=== PATIENT | male | born 1955 | race Caucasian/White ===

== ENCOUNTER 2023-05-12 11:45 | Inpatient (IN) | payer BC, SELFPAY ==
[2023-05-12] VITALS (7 sets, daily range): BP systolic 100–164; BP diastolic 64–83; PULSE 98–120; RESP 14–22; TEMP 36.1–37.1; O2SAT 93–95; BMI 33.9
--- NOTE | 2023-05-12 | ECG_ITS ---
Test Reason : baseline ekg Blood Pressure : / mmHG Vent. Rate : 110 BPM Atrial Rate : 000 BPM P-R Int : 000 ms QRS Dur : 100 ms QT Int : 374 ms P-R-T Axes : 000 041 079 degrees QTc Int : 506 ms Atrial fibrillation with rapid ventricular response Incomplete right bundle branch block Nonspecific ST abnormality Abnormal ECG When compared with ECG of 10-SEP-2016 23:18, Atrial fibrillation has replaced Sinus rhythm ST more depressed Anterolateral leads T wave amplitude has increased in Lateral leads Heart rate has increased Referred By: Yuly Hernandez Electronically Signed By:DELMER MITCHELL MD
--- NOTE | ~2023-05-12 | FL_ITS ---
EXAMINATION: XR FL WITH IMAGES CLINICAL INFORMATION: Left ankle ORIF. COMPARISON: Left ankle 05/11/2023 from [facility]. TECHNIQUE: Fluoroscopy Supervised By: Dr. Kyler Oliva. Fluoroscopy Time: 0.1 minute. Cumulative Dose: 0.785 mGy. DAP: 0.0136 mGym2. Images: 4. FINDINGS: Imaging shows ORIF with lateral plate and screw overlying a lateral fibula. FL/FL guidance in OR IMPRESSION: Fluoroscopy provided for ORIF left ankle fracture.
--- NOTE | ~2023-05-12 | XR_ITS ---
EXAMINATION: XR CHEST CLINICAL INFORMATION: VQ scan. Rule out pulmonary embolism. Ankle fracture. COMPARISON: 05/12/2023 x-ray chest. TECHNIQUE: Frontal view of the chest was obtained. FINDINGS: Lung volumes are low. There is no gross pneumothorax. Enlarged cardiac silhouette. Median sternotomy wires. Mild diffuse prominence of the vasculature suggestive of mild pulmonary edema. No gross pleural effusion. Mild bibasilar streaky opacities may represent atelectasis and/or pneumonia, left greater than right. XR/XR chest 1V IMPRESSION: Mild diffuse prominence of the vasculature suggestive of mild pulmonary edema. Mild bibasilar streaky opacities may represent atelectasis and/or pneumonia, left greater than right.
--- NOTE | ~2023-05-12 | XR_ITS ---
EXAMINATION: XR ANKLE, LEFT CLINICAL INFORMATION: Fall, fracture COMPARISON: None available. TECHNIQUE: AP, lateral, and mortise views of the left ankle. FINDINGS: Displaced oblique fracture of the distal fibula with medial clear space widening/mortise disruption. Associated soft tissue swelling. Vascular calcifications. XR/XR ankle LT min 3V IMPRESSION: Displaced distal fibular fracture with mortise disruption.
--- NOTE | ~2023-05-12 | XR_ITS ---
EXAMINATION: XR chest 1V CLINICAL INFORMATION: Hypoxia COMPARISON: 2017 TECHNIQUE: XR chest 1V Tubes and lines: Lungs and pleura: There is pulmonary vascular congestion, without scot failure. Left hemidiaphragm is partially obscured probably by underlying pleural effusion, infiltrate and/or atelectasis. Heart and mediastinum: Stable sternotomy wires. The mediastinum is within normal limits.. Bones/soft tissue: Skeletal structures included are normal for patient's age. XR/XR chest 1V IMPRESSION: * Pulmonary vascular congestion without scot failure. * Left hemidiaphragm is partially obscured probably by underlying pleural effusion, infiltrate and/or atelectasis.
--- NOTE | ~2023-05-12 | NM_ITS ---
EXAMINATION: NM LUNG IMAGE PERFUSION CLINICAL INFORMATION: Rule out PE. Ankle fracture. Rule out CHF and/or PD. COMPARISON: Chest x-ray 05/14/2023. TECHNIQUE: Following intravenous administration of 4 mCi of 90 9M technetium MAA, imaging of both lungs were obtained in multiple projections. Ventilation study was not performed. FINDINGS: There is normal perfusion seen to all segments of both lungs without segmental or subsegmental defect. Chest x-ray reveals cardiomegaly with mild CHF. NM/ME pul perfusion IMPRESSION: No evidence of perfusion defect to suspect any PE.
--- NOTE | ~2023-05-12 | CT_ITS ---
EXAMINATION: CT ABDOMEN AND PELVIS WITHOUT CONTRAST CLINICAL INFORMATION: Acute kidney insufficiency. Elevated liver function tests. COMPARISON: None available. TECHNIQUE: Multidetector volumetric imaging was performed from the superior aspect of the liver through the pubic symphysis. Sagittal and coronal reformatted images were obtained on the technologist's workstation. This CT examination was performed using dose optimization techniques as appropriate, variously including the following: *Automated exposure control *Adjustment of mA and/or kV according to patient size (this includes techniques or standardized protocols for targeted exams where dose is matched to indication/reason for exam; i.e. extremities or head) *Use of iterative reconstruction technique DLP: 826 mGy-cm FINDINGS: LUNG BASES: Subsegmental atelectasis at the lung bases. The heart is enlarged. LIVER, GALLBLADDER, AND BILIARY TREE: The liver is normal in size, shape. The liver is slightly low in attenuation suggestive of fatty infiltration.. No focal hepatic lesion or biliary ductal dilatation is present. Small gallstones. PANCREAS: Unremarkable. SPLEEN: Unremarkable. ADRENAL GLANDS: Unremarkable. KIDNEYS AND URETERS: The kidneys are normal in size, shape, and attenuation. No hydronephrosis, hydroureter, or calculi seen. I lateral perinephric stranding. BLADDER: Unremarkable. GASTROINTESTINAL TRACT: The small and large bowel are unremarkable. The appendix is unremarkable. ABDOMINAL WALL: Small left umbilical hernia containing fat. Postsurgical changes from umbilical hernia repair. LYMPH NODES: Normal. VASCULAR: Atherosclerotic disease. Lower abdominal aortic aneurysm just above the bifurcation measuring 3.2 cm. PELVIC VISCERA: Unremarkable. OSSEOUS STRUCTURES: Degenerative changes of the spine and hip joints. CT/CT abdomen pelvis wo IV con IMPRESSION: Multiple fatty infiltration of the liver. Small gallstone. Bilateral renal perinephric fat stranding. Small lower abdominal aortic aneurysm measuring 3.2 cm. Recommend AAA follow-up every 3 years. Reference: J Am Sultana Radiol 2013; 10 (10): 789-794. Fleischner guidelines were followed.
--- NOTE | ~2023-05-12 | US_ITS ---
EXAMINATION: US RETROPERITONEAL LIMITED (RENAL ONLY) CLINICAL INFORMATION: 8 TI. COMPARISON: None available. TECHNIQUE: Routine grayscale imaging of kidneys was performed. FINDINGS: RIGHT KIDNEY: 14.4 x 6.1 x 7.4 cm (SAG x AP x TRV). The kidney is normal in size, contour, and echogenicity. Renal cortical thickness is normal. No calculi or focal parenchymal lesions. No hydronephrosis. LEFT KIDNEY: 14.5 x 8.2 x 5.9 cm (SAG x AP x TRV). The kidney is normal in size, contour, and echogenicity. Renal cortical thickness is normal. No calculi or focal parenchymal lesions. No hydronephrosis. Incidental finding of a echogenic heterogeneous liver likely fatty infiltration consistent with history of elevated LFTs on recent CT abdomen pelvis 05/13/2023 US/US renal BI IMPRESSION: Unremarkable renal ultrasound.
--- NOTE | 2023-05-12 11:53 | ED_ITS ---
HPI - General Adult General Chief complaint: Extremity Injury, Lower Stated complaint: broken L ankle Time Seen by Provider: 05/12/23 11:53 Source: patient and family (patient's and son) Mode of arrival: wheelchair Limitations: no limitations History of Present Illness HPI narrative: Patient is a 68 year old assigned male at with a history of a valve replacement and atrial fibrillation requiring Xarelto presenting to the emergency department today with left ankle pain. Patient states that he fell off the top of his fridge, was seen at [facility] where they did imaging of his head, neck, and ankle. Patient states that he was discharged from that facility because he wanted to come here. Patient states that he did not sign out against medical advice. Patient denies any loss of consciousness, numbness, tingling, dizziness, lightheadedness, abdominal pain, nausea, vomiting, fever, chills, blurry vision, double vision, loss of vision, chest pain, difficulty breathing, shortness of breath, back pain, night sweats, pain with urination, increased urinary frequency, increased urinary urgency, blood in his urine or stool, syncope or a near syncopal episode, bowel incontinence, bladder incontinence, bowel retention, bladder retention, or any other complaints at this time. Onset (ago): hour(s) Location: left and lower extremity Severity: moderate Severity scale (1-10): 5 Quality: aching Pain Consistency: constant Relieving factors: immobilization Exacerbating factors: movement Associated symptoms: denies other symptoms Treatments prior to arrival: none Related Data Home Medications Medication Instructions Recorded Confirmed aspirin 81 mg tablet,delayed 81 mg PO DAILY 05/12/23 05/12/23 release citalopram 20 mg tablet 20 mg PO DAILY 05/12/23 05/12/23 fenofibrate 54 mg tablet 54 mg PO DAILY 05/12/23 05/12/23 fluticasone furoate 100 1 inh inhalation DAILY 05/12/23 05/12/23 mcg-vilanterol 25 mcg/dose inhalation powder (Breo Ellipta) magnesium glycinate 100 mg tablet 500 mg PO DAILY 05/12/23 05/12/23 magnesium oxide 400 mg PO BID 05/12/23 05/12/23 metoprolol succinate 100 mg 100 mg PO BID 05/12/23 05/12/23 tablet,extended release 24 hr omega 4-xws-rqd-fish oil 1,000 mg 2 cap PO DAILY 05/12/23 05/12/23 (120 mg-180 mg) capsule (Fish Oil) omeprazole 20 mg capsule,delayed 20 mg PO Q2D@0630 05/12/23 05/12/23 release rivaroxaban 20 mg tablet (Xarelto) 20 mg PO DAILY@1700 05/12/23 05/12/23 rosuvastatin 20 mg tablet 20 mg PO DAILY 05/12/23 05/12/23 Allergies Allergy/AdvReac Type Severity Reaction Status Date / Time No Known Allergies Allergy Unverified 04/16/20 19:13 [No Known Allergies*] Review of Systems 2 Constitutional: Constitutional: Reports no additional constitutional complaints, Denies chills, Denies fever(s) and Denies night sweats Eyes: Eyes: Reports no additional eye complaints, Denies blurry vision, Denies change in vision, Denies diplopia, Denies eye discharge, Denies loss of vision and Denies eye pain ENT: Denies dizziness Cardiovascular: Cardiovascular: Reports no additional cardiovascular complaints, Denies chest pain, Denies lightheadedness, Denies Loss of Consciousness and Denies dyspnea Respiratory: Respiratory: Reports no additional respiratory complaints and Denies dyspnea Gastrointestinal: Gastrointestinal: Reports no additional gastrointestinal complaints, Denies abdominal pain, Denies melena, Denies hematochezia, Denies change in bowel habits and Denies change in stool character Genitourinary: Genitourinary: Reports no additional male genitourinary complaints, Denies hematuria, Denies oliguria, Denies difficulty urinating, Denies dysuria, Denies urinary frequency, Denies urinary hesitancy, Denies urinary incontinence and Denies urinary urgency Musculoskeletal: Musculoskeletal: Reports no additional musculoskeletal complaints, Denies numbness and Denies tingling Comments: left ankle pain Neurologic: Denies dizziness, Denies loss of vision, Denies numbness and Denies tingling Psychiatric: Psychiatric: Reports no additional psychiatric complaints Endocrine: Endocrine: Reports no additional endocrine complaints Hematologic/Lymphatic: Hematologic/Lymphatic: Reports no additional hematologic/lymphatic complaints Allergic/Immunologic: Allergic/Immunologic: Reports no additional allergic/immunologic complaints PMFSH Past Medical History Attestation statement: The following information was validated with the patient. (all information validated with the patient's and son) Source: old records reviewed, obtained from family (patient's and son provided additional history and confirmed the history provided by the patient.) and nursing notes reviewed Social History Social History Advance Directives: Yes Advance Directives Information Provided: Yes Advance Directives on File: No Physical Exam ED Vital Signs: Vital Signs - 24 hr 05/12/23 12:01 05/12/23 13:12 05/12/23 14:34 Temperature 97.6 F Pulse Rate 98 Respiratory Rate 16 16 14 Blood Pressure 164/76 H Pulse Oximetry 95 Oxygen Delivery Method Room Air BMI result Body Mass Index 33.9 Const General: cooperative, no acute distress, alert and awake Nutritional Appearance: well nourished Orientation/consciousness: patient oriented x3 Limitations: no limitations HENMT Head: Yes normal to inspection and Yes atraumatic Ears: hearing grossly normal bilaterally and external ears normal General nose exam: Normal external nose present, no nasal discharge noted and no epistaxis Face and sinus: Yes normal facial exam, No abrasion and No laceration Mouth: Normal oral and palatal mucosa present, no drooling and no muffled voice Eyes General: appearance normal, both eyes and all related structures Periorbital: periorbital findings normal Eyelids: Yes eyelids normal Conjunctivae: conjunctivae normal Pupils: Equal, round and reactive pupils present EOM: EOMs intact bilaterally Neck Neck: Yes normal visual inspection, Yes full ROM and Yes no lymphadenopathy Chest Chest palpation & inspection: normal inspection of the chest Resp Effort & Inspection: normal respiratory effort and able to speak in complete sentences GI Inspection: Yes normal to inspection Neuro General: patient oriented x3 and moves all extremities Cranial nerves: Yes Equal, round and reactive pupils present Cognition (Neuro): normal cognition Motor exam (neuro): 5/5 motor strength present throughout Sensory Exam: Normal double simultaneous stimulation for sensation Coordination: [id number] test normal Extrem Other: small opening of the skin present to the medial aspect of the left ankle with diffuse swelling and bruising General: Yes capillary refill normal Psych Appearance: grossly normal Mental Status: mental status grossly normal Affect: normal affect Attitude: cooperative Thought process: Normal thought process present Thought content: Normal thought content present Insight: Good insight present (Psych) Medications Administered Discontinued Medications Generic Name Dose Route Start Last Admin Trade Name Freq PRN Reason Stop Dose Admin Hydromorphone HCl 2 mg 05/12/23 14:25 05/12/23 14:34 Hydromorphone Hcl 2 Mg/Ml Vial IVPUSH 05/12/23 14:26 2 mg ONCE ONE Administration Protocol Piperacillin Sod/Tazobactam 50 mls @ 100 mls/hr 05/12/23 12:15 05/12/23 13:57 Sod 3.375 gm/ Sodium Chloride IV 05/12/23 12:44 Infused ONCE ONE Infusion Morphine Sulfate 4 mg 05/12/23 13:02 05/12/23 13:12 Morphine Sulfate 4 Mg/Ml Cartridge IVPUSH 05/12/23 13:03 4 mg ONCE ONE Administration Protocol Ondansetron HCl 4 mg 05/12/23 13:02 05/12/23 13:10 Ondansetron Hcl 4 Mg/2 Ml Vial IVPUSH 05/12/23 13:03 4 mg ONCE ONE Administration Procedures Orthopedic Splinting/Casting Injury #1: Side: left Lower Extremity Injury Location: ankle Lower Extremity Immobilizer: posterior splint and stirrup splint Medical Decision Making Medical Decision Making MDM Narrative: Patient is a 68 year old assigned male at with a history of atrial fib and valve replacement presenting to the emergency department today with left ankle pain. Patient's physical exam was as noted in the physical exam portion of this note. Patient's blood work was unremarkable. Patient's left ankle x-ray showed an acute fracture. Patient's head and c-spine CTs from [facility] were unremarkable. I spoke with the orthopedist who recommended the patient be admitted medically. Patient was given IV Zosyn and I splinted his left ankle with a posterior short leg and stirrup splint. Patient's PMS was intact prior to and after splint placement. I spoke with the hospitalist team who agreed to admission. I explained my physical exam findings as well as all test results to the patient and the patient's . I answered all questions asked by the patient and the patient's . Patient and the patient's verbalized agreement and understanding with this treatment plan and admission. Differential Diagnosis Differential Diagnoses: The differential diagnosis associated with the presentation includes Open left ankle fracture Admission/Observation Consideration of admission/observation: Escalation of care including admission/observation considered Patient admitted. Consult Healthcare Provider Management of the patient was discussed with: Hospitalist (agreed to admission) and Tobacco Sprayer (recommended medical admission) Lab Data MDM Lab Attestation statement: I reviewed the patient's lab results. My interpretation of these studies and their corresponding values is that they are grossly normal. 05/12/23 12:49 05/12/23 12:49 Labs: Lab Results 05/12/23 Range/Units 12:49 WBC 7.0 (4.8-10.8) X10*3/uL RBC 4.17 L (4.60-5.80) X10*6/uL Hgb 15.1 (14.0-18.0) g/dl Hct 44.4 (42.0-52.0) % MCV 106.5 H (80.0-98.0) fL MCH 36.2 H (27.0-33.0) pg MCHC 34.0 (31.0-36.0) g/dl RDW 13.5 (11.0-16.0) % Plt Count 117 L (160-400) X10*3/uL MPV 10.6 (9.4-12.4) fL Immature Gran % (Auto) 0.4 (0.0-0.4) % Neut % (Auto) 65.1 (45-73) % Lymph % (Auto) 17.5 L (20-40) % [place] % (Auto) 13.0 H (2-11) % Eos % (Auto) 3.4 (0-4) % Baso % (Auto) 0.6 (0-2) % Lymph # (Auto) 1.2 (1.2-4.9) X10*3/uL [place] # (Auto) 0.9 (0.1-1.2) X10*3/uL Eos # (Auto) 0.2 (0.0-0.4) X10*3/uL Baso # (Auto) 0.0 (0.0-0.2) X10*3/uL Abs Immat Gran (auto) 0.03 (0.00-0.03) X10*3/uL Absolute Neuts (auto) 4.6 (2.0-8.3) x10*3/uL Absolute Nucleated RBC 0.000 (0.0-0.012) X10*3/uL Nucleated RBC % (auto) 0.0 (0.0-0.2) /100WBC PT 18.7 H (11.1-13.3) SEC INR 1.5 H (0.9-1.1) APTT 41.4 H (26.0-36.4) SEC Sodium 142 (135-145) mmol/L Potassium 4.2 (3.3-5.1) mmol/L Chloride 103 (96-108) mmol/L Carbon Dioxide 26 (22-29) mmol/L Anion Gap 17 (12-20) BUN 20 H (9-16) mg/dL Creatinine 0.99 (0.5-1.4) mg/dL Estim Creat Clear Calc 91.5 Estimated GFR > 60 Random Glucose 151 H (60-115) mg/dL Calcium 9.2 (8.4-10.2) mg/dL Magnesium 1.7 (1.6-2.6) mg/dL Total Bilirubin 1.4 H (0.0-1.0) mg/dL AST 42 H (5-37) U/L ALT 27 (0-40) U/L Alkaline Phosphatase 111 (39-117) U/L Total Protein 7.3 (6.5-8.0) g/dL Albumin 3.7 (3.5-5.0) g/dL Independent Interpretation I performed an independent interpretation of an: Plain X-Ray Interpretation: My interpretation is in agreement with the radiologist's impression of this imaging study. - EXAMINATION: XR ANKLE, LEFT CLINICAL INFORMATION: Fall, fracture COMPARISON: None available. TECHNIQUE: AP, lateral, and mortise views of the left ankle. FINDINGS: Displaced oblique fracture of the distal fibula with medial clear space widening/mortise disruption. Associated soft tissue swelling. Vascular calcifications. XR/XR ankle LT min 3V IMPRESSION: Displaced distal fibular fracture with mortise disruption. Dictated By: Roxana Rachel MD Signed By: Electronically signed by Roxana Rachel MD 05/12/23 1223 Radiology Impression Discussion of test interpretation with radiology: I have reviewed the radiologist's reading. Independent Historian Clinical information obtained from an independent historian. History obtained from or confirmed by: Spouse (patient's provided additional history and confirmed the history provided by the patient.) External Record Review External record reviewed: Outside ED record (Reviewed [facility] cyr notes and imaging.) Critical Care Time Critical Care Time Critical Care Time: Yes Total Critical Care Time: 60 Attestation: I spent 60 minutes of Critical Care Time with this patient. This does not include time spent on separately reported billable procedures. Discharge Plan Discharge Clinical Impression: Open ankle fracture Patient Disposition: Admitted As Inpatient Prescriptions: No Action magnesium glycinate 100 mg Tablet 500 mg PO DAILY magnesium oxide 400 mg magnesium Tablet 400 mg PO BID aspirin 81 mg Tablet,Delayed Release (Dr/Ec) 81 mg PO DAILY omeprazole 20 mg Capsule,Delayed Release(Dr/Ec) 20 mg PO Q2D@0630 omega 9-cnu-xtf-fish oil [Fish Oil] 1,000 mg (120 mg-180 mg) Capsule 2 cap PO DAILY Xarelto 20 mg Tablet 20 mg PO DAILY@1700 Rx Instructions: must administer with evening meal rosuvastatin 20 mg Tablet 20 mg PO DAILY fluticasone furoate-vilanterol [Breo Ellipta] 100-25 mcg/dose Blister With Device 1 inh INHALATION DAILY citalopram 20 mg Tablet 20 mg PO DAILY metoprolol succinate 100 mg Tablet Extended Release 24 Hr 100 mg PO BID fenofibrate 54 mg Tablet 54 mg PO DAILY
[2023-05-12 12:55] LABS: MANUAL DIFF FLAG NO
[2023-05-12 12:59] LABS: Basophils Percent Auto 0.6 % (0-2); Eosinophils Absolute Auto 0.2 X10*3/uL (0.0-0.4); Eosinophils Percent Auto 3.4 % (0-4); Hematocrit 44.4 % (42.0-52.0); Hemoglobin 15.1 g/dl (14.0-18.0); Imm Gran Abs Auto 0.03 X10*3/uL (0.00-0.03); Imm Gran Pct Auto 0.4 % (0.0-0.4); Lymphocytes Absolute Auto 1.2 X10*3/uL (1.2-4.9); Lymphocytes Percent Auto 17.5 % (20-40); Mean Corpuscular Hemoglobin 36.2 pg (27.0-33.0); Mean Corpuscular Volume 106.5 fL (80.0-98.0); Mean Platelet Volume 10.6 fL (9.4-12.4); Monocytes Absolute Auto 0.9 X10*3/uL (0.1-1.2); Neutrophils Absolute Auto 4.6 x10*3/uL (2.0-8.3); Neutrophils Percent Auto 65.1 % (45-73); Platelet Count 117 X10*3/uL (160-400); Red Blood Count 4.17 X10*6/uL (4.60-5.80); Red Cell Distribution Width 13.5 % (11.0-16.0)
[2023-05-12 13:03] LABS: INTERNATIONAL NORM RATIO 1.5 (0.9-1.1); Prothrombin Time 18.7 SEC (11.1-13.3)
[2023-05-12 13:06] LABS: Partial Thromboplastin Time 41.4 SEC (26.0-36.4)
[2023-05-12] MEDS: ondansetron HCL 4 MG/2 ML VIAL IVPUSH (13:10)
[2023-05-12] MEDS: Morphine Sulfate 4 MG/ML CARTRIDGE IVPUSH (13:12)
[2023-05-12 13:14] LABS: Alanine Aminotransferase 27 U/L (0-40); Albumin Level 3.7 g/dL (3.5-5.0); Alkaline Phosphatase 111 U/L (39-117); Anion Gap 17 (12-20); Aspartate Amino Transferase 42 U/L (5-37); Bilirubin Total 1.4 mg/dL (0.0-1.0); Blood Urea Nitrogen 20 mg/dL (9-16); Calcium 9.2 mg/dL (8.4-10.2); Carbon Dioxide 26 mmol/L (22-29); Chloride 103 mmol/L (96-108); Creatinine Clr Calc Pharmacy 91.5; Estimated Glomerular Filt Rate > 60; Glucose Random 151 mg/dL (60-115); Magnesium 1.7 mg/dL (1.6-2.6); Potassium 4.2 mmol/L (3.3-5.1); Sodium 142 mmol/L (135-145); Total Protein 7.3 g/dL (6.5-8.0)
[2023-05-12] MEDS: Piperacillin Sodium/Tazobactam 3.375 GM in 0.9 % Sodium Chloride 50 ML IV (13:14)
--- NOTE | 2023-05-12 13:14 | MHC.EDTECH ---
open wound was cleaned and sterile dressing was placed with PA orders
--- NOTE | 2023-05-12 14:27 | PHA.MEDREC ---
Pharmacy Consult ? Medication Reconciliation Pharmacy has completed the medication reconciliation.Med rec complete, spoke with patient and compared with pharmacy history.
--- NOTE | 2023-05-12 14:31 | P.HPHOSP_ITS ---
History of Present Illness Date of Service: 05/12/23 Attending physician on admission: Robert Crum Chief Complaint: Open fracture of left ankle Pt is a 68-year-old male with a PMH significant for?persistent AFib on Xarelto, bovine valve replacement, and HLD who presents to the ED for evaluation of open left ankle fracture. Pt reports last night he went into the kitchen to grab something off the top of the fridge, and when he reached up he felt lightheaded, dizzy, and then did the splits and fell to the floor. Immediately felt 10/10 left ankle pain. Denies LOC, headstrike, or confusion post-fall. Pt took off his sock and noticed a small laceration on the lateral aspect of his ankle and part of his bone protruding under the skin. Admits to having a couple of glasses of wine prior to fall, which he says he does 2-3 times per week. Pt first presented to [facility] where he reports waiting over twelve hours with almost no interaction with a provider. X-ray showed left ankle fracture, and CT of head and neck negative for acute pathology. Pt and family were so displeased with treatment they were discharged from [place] and presented to ED here, where son serves as a [place] [employer] sales representative. Pt reports similar episode of lightheadedness and dizziness with fall on Monday of this week, again after having a couple of glasses of wine. No trauma, injuries, headstrike, LOC from this fall. Did not seek medical attention on . Reports these are the only two such pre-syncopal episodes. Patient reports current 7/10 pain to left ankle, otherwise has no acute medical complaints. Denies chest pain/pressure, palpitations. No shortness of breath. Denies nausea, vomiting, diarrhea, abdominal pain. In the ED patient was afebrile with pulse of 98 and slightly hypertensive up to 164/76. Labs were significant for MCV of 106.5, platelets 117, bilirubin 1.4, AST 42. H&H stable at 15 0.1/44.4. Electrolytes WNL. Renal function baseline. Coags elevated at PT 18.7, INR 1.5, APTT 41.4. X-ray of left ankle showed displaced distal fibular fracture with more T-piece disruption. EKG showed atrial fibrillation with RVR [address] and T-wave abnormalities. Pt was treated with ondansetron, morphine, Zosyn and Dilaudid. Pt will be admitted to the hospital for treatment further of open fracture of left ankle with surgical procedure. Review of Systems 2 Review of Systems: Fall at home on Monday and of this week Lightheadedness, dizziness Left ankle pain Denies chest pain/pressure, palpitations No shortness of breath Denies fever, chills, nausea, vomiting, abdominal pain PMFSH Social History Advance Directives: Yes Advance Directives Information Provided: Yes Advance Directives on File: No Meds Allergies Allergy/AdvReac Type Severity Reaction Status Date / Time No Known Allergies Allergy Unverified 04/16/20 19:13 [No Known Allergies*] Home Medications Medication Instructions Recorded Confirmed Last Taken Type aspirin 81 mg tablet,delayed 81 mg PO DAILY 05/12/23 05/12/23 Unknown History release citalopram 20 mg tablet 20 mg PO DAILY 05/12/23 05/12/23 Unknown History fenofibrate 54 mg tablet 54 mg PO DAILY 05/12/23 05/12/23 Unknown History fluticasone furoate 100 1 inh inhalation DAILY 05/12/23 05/12/23 Unknown History mcg-vilanterol 25 mcg/dose inhalation powder (Breo Ellipta) magnesium glycinate 100 mg tablet 500 mg PO DAILY 05/12/23 05/12/23 Unknown History magnesium oxide 400 mg PO BID 05/12/23 05/12/23 Unknown History metoprolol succinate 100 mg 100 mg PO BID 05/12/23 05/12/23 Unknown History tablet,extended release 24 hr omega 1-zhk-nok-fish oil 1,000 mg 2 cap PO DAILY 05/12/23 05/12/23 Unknown History (120 mg-180 mg) capsule (Fish Oil) omeprazole 20 mg capsule,delayed 20 mg PO Q2D@0630 05/12/23 05/12/23 Unknown History release rivaroxaban 20 mg tablet (Xarelto) 20 mg PO DAILY@1700 05/12/23 05/12/23 Unknown History rosuvastatin 20 mg tablet 20 mg PO DAILY 05/12/23 05/12/23 Unknown History Physical Exam 2 Vital Signs and Narrative: Vital Signs: Last Vital Signs Temp 97.6 F 05/12/23 12:01 Pulse 98 05/12/23 12:01 Resp 16 05/12/23 13:12 BP 164/76 H 05/12/23 12:01 Pulse Ox 95 05/12/23 12:01 O2 Del Method Room Air 05/12/23 12:01 BMI result Body Mass Index 33.9 Constitutional: Alert, in no acute distress. Mental Status: Oriented to person, place and time. Eyes: Pupils are equal, round, and reactive to light. Ear, Nose, and Throat: Oropharynx clear, mucous membranes moist. Ears and nose without deformities. Trachea midline. Respiratory: Clear to auscultation bilaterally. No wheezing, rales, or rhonchi. Cardiovascular: Irregularly irregular rhythm. No murmurs, rubs, or gallops. Gastrointestinal: Abdomen soft, non-tender, non-distended. Normal bowel sounds. Neurologic: Cranial nerves II-XII are grossly intact bilaterally. No focal neurological deficits. Moves all extremities spontaneously. Skin: No rashes or lesions noted. Extremities: No edema. Left lower leg in splint and wrapped in elder bandages Psychiatric: Normal mood and affect. Results Labs 05/12/23 12:49 05/12/23 12:49 Labs: Laboratory Results - last 24 hr 05/12/23 12:49 MCV 106.5 H MCH 36.2 H MCHC 34.0 RDW 13.5 Plt Count 117 L MPV 10.6 Immature Gran % (Auto) 0.4 Neut % (Auto) 65.1 Lymph % (Auto) 17.5 L [place] % (Auto) 13.0 H Eos % (Auto) 3.4 Baso % (Auto) 0.6 Lymph # (Auto) 1.2 [place] # (Auto) 0.9 Eos # (Auto) 0.2 Baso # (Auto) 0.0 Abs Immat Gran (auto) 0.03 Absolute Neuts (auto) 4.6 Absolute Nucleated RBC 0.000 Nucleated RBC % (auto) 0.0 PT 18.7 H INR 1.5 H APTT 41.4 H Anion Gap 17 Estim Creat Clear Calc 91.5 Estimated GFR > 60 Random Glucose 151 H Calcium 9.2 Magnesium 1.7 Total Bilirubin 1.4 H AST 42 H ALT 27 Alkaline Phosphatase 111 Total Protein 7.3 Albumin 3.7 Imaging Radiologist's Impressions: Impressions Ankle X-Ray 05/12/23 12:16 IMPRESSION: Displaced distal fibular fracture with mortise disruption. Assessment and Plan (1) Open ankle fracture: Status: Acute Plan Pt is a 68-year-old male with a PMH significant for?persistent AFib on Xarelto, bovine valve replacement, and HLD who presents to the ED for evaluation of open left ankle fracture. Pt will be admitted to the hospital for treatment further of open fracture of left ankle with surgical procedure. Open fracture of left ankle Left ankle x-ray shows displaced distal fibular fracture with mortise disruption Will hold Xarelto, aspirin Dilaudid 1 mg IV q.4 for pain management Patient received Zosyn in ED, will switch to cefazolin, started 05/12/2023 Cardiology consult for input on anticoagulation, risk stratification, per Orthopedics Regular diet for now given surgery will likely be in 48 hours Persistent AFib EKG shows afib with RVR of 110 Hold Xarelto Continue metoprolol Lightheadedness/dizziness Pt with two episodes of dizziness with falls this week Unclear etiology: differential includes alcohol-related, vasovagal, cardiac, orthostatic Will check orthostatics once patient is s/p surgery Consider echocardiogram pending Cardiology recommendations Monitor on telemetry HLD Continue statin Full Code Attending:?Dr. Crum DVT Prophylaxis: Pneumatic boot on right foot; Xarelto on hold d/t impending surgery Pt will require a hospitalization of at least two nights for treatment of?open fracture of left ankle with surgical procedure. Time Spent With Patient Time: Total time managing care of this patient today ____ minutes. Quality Stroke Does the patient have a stroke diagnosis?: No VTE Prior VTE?: No VTE Risk Level:: Medical - moderate - high VTE Device Contraindication: N/A - Device Ordered VTE Drug Contraindication: Treatment Not Indicated
[2023-05-12] MEDS: HYDROmorphone HCl 2 MG/ML VIAL IVPUSH (14:34)
[2023-05-12] MEDS: Metoprolol Succinate ER 100 MG TAB.ER.24H PO ×2 (16:25→22:45)
[2023-05-12] MEDS: 0.9 % Sodium Chloride Flush 3 ML SYRINGE IVFLUSH ×2 (16:26→22:41)
[2023-05-12 17:58] LABS: Glucose, Whole Blood 138 mg/dL (60-115)
--- NOTE | 2023-05-12 18:00 | ECG_ITS ---
Test Reason : cp Blood Pressure : / mmHG Vent. Rate : 119 BPM Atrial Rate : 000 BPM P-R Int : 000 ms QRS Dur : 102 ms QT Int : 312 ms P-R-T Axes : 000 054 013 degrees QTc Int : 438 ms Atrial fibrillation with rapid ventricular response Incomplete right bundle branch block Nonspecific ST abnormality Abnormal ECG When compared with ECG of 12-MAY-2023 15:44, No significant changes seen Referred By: Robert Crum Electronically Signed By:DELMER MITCHELL MD
[2023-05-12] MEDS: HYDROmorphone HCl 1 MG/ML SYRINGE IVPUSH ×2 (18:01→22:41)
--- NOTE | 2023-05-12 21:34 | PM.CNOR ---
History of Present Illness HPI Consult date: 05/12/23 Consult reason: fracture Chief complaint: Open fracture of left ankle Narrative: Patient presented to outside hospital 18 hours ago with a displaced lateral malleolus fracture and a small punctate open wound over the medial malleolus. He is on xarelto. He is ambulatory at baseline. [facility] Social History Social History Household Members: Spouse Housing: House Do you presently have visiting nurse or other home services: No Patient Tobacco Use Status: Never used Tobacco Meds Allergies Allergy/AdvReac Type Severity Reaction Status Date / Time No Known Allergies Allergy Unverified 04/16/20 19:13 [No Known Allergies*] Active Medications: Current Medications Acetaminophen (Acetaminophen 325 Mg Tablet) 650 mg PO Q6H PRN PRN Reason: Pain, Mild (Pain Scale 1-3) Atorvastatin Calcium (Atorvastatin Calcium 80 Mg Tablet) 80 mg PO DAILY [facility] Docusate Sodium (Docusate Sodium 100 Mg Capsule) 100 mg PO DAILY PRN PRN Reason: Constipation Escitalopram Oxalate (Escitalopram Oxalate 10 Mg Tablet) 10 mg PO DAILY [facility] Fenofibrate (Fenofibrate 54 Mg Tablet) 54 mg PO DAILY [facility] Last Admin: 05/12/23 17:43 Dose: Not Given Fluticasone/Vilanterol (Fluticasone/Vilanterol 100/25 Blst.W.Dev) 1 puff INHALE RDAILY [facility] Hydromorphone HCl (Hydromorphone Hcl 1 Mg/Ml Syringe) 1 mg IVPUSH Q4H PRN; Protocol PRN Reason: Pain, Severe (Pain Scale 7-10) Last Admin: 05/12/23 18:01 Dose: 1 mg Cefazolin Sodium/Dextrose (Ancef) 2 gm in 50 mls @ 100 mls/hr IV Q8H [facility] Magnesium Oxide (Magnesium Oxide 400 Mg Tablet) 400 mg PO BID [facility] Metoprolol Succinate (Metoprolol Succinate Er 100 Mg Tab.Er.24h) 100 mg PO BID [facility]; Protocol Omeprazole (Omeprazole 20 Mg Capsule.Dr) 20 mg PO Q2D@0630 [facility] Ondansetron HCl (Ondansetron Hcl 4 Mg/2 Ml Vial) 4 mg IVPUSH Q8H PRN PRN Reason: Nausea and Vomiting Sodium Chloride (0.9 % Sodium Chloride Flush 3 Ml Syringe) 3 ml IVFLUSH QSHIFT [facility] Last Admin: 05/12/23 16:26 Dose: 3 ml Home Medications Medication Instructions Recorded Confirmed Last Taken Type aspirin 81 mg tablet,delayed 81 mg PO DAILY 05/12/23 05/12/23 Unknown History release citalopram 20 mg tablet 20 mg PO DAILY 05/12/23 05/12/23 Unknown History fenofibrate 54 mg tablet 54 mg PO DAILY 05/12/23 05/12/23 Unknown History fluticasone furoate 100 1 inh inhalation DAILY 05/12/23 05/12/23 Unknown History mcg-vilanterol 25 mcg/dose inhalation powder (Breo Ellipta) magnesium glycinate 100 mg tablet 500 mg PO DAILY 05/12/23 05/12/23 Unknown History magnesium oxide 400 mg PO BID 05/12/23 05/12/23 Unknown History metoprolol succinate 100 mg 100 mg PO BID 05/12/23 05/12/23 Unknown History tablet,extended release 24 hr omega 1-mbj-mmc-fish oil 1,000 mg 2 cap PO DAILY 05/12/23 05/12/23 Unknown History (120 mg-180 mg) capsule (Fish Oil) omeprazole 20 mg capsule,delayed 20 mg PO Q2D@0630 05/12/23 05/12/23 Unknown History release rivaroxaban 20 mg tablet (Xarelto) 20 mg PO DAILY@1700 05/12/23 05/12/23 Unknown History rosuvastatin 20 mg tablet 20 mg PO DAILY 05/12/23 05/12/23 Unknown History Physical Exam Vital Signs: Vital Signs: Last Vital Signs Temp 97 F 05/12/23 19:11 Pulse 119 H 05/12/23 19:11 Resp 20 05/12/23 19:11 BP 136/83 05/12/23 19:11 Pulse Ox 95 05/12/23 19:11 O2 Del Method Nasal Cannula 05/12/23 19:11 O2 Flow Rate 2 05/12/23 19:11 BMI result Body Mass Index 33.9 Extrem: Other: left ankle with moderate medial and posterior eccymosis and moderate swelling with + wrinkle test. 2+ DP There is a 2-3 mm abrasion over the medial malleolus that is not bleeding. There is no exposed subdermal tissue. Results Labs 05/12/23 12:49 05/12/23 12:49 Labs: Abnormal lab results 05/12/23 05/12/23 Range/Units 12:49 17:53 RBC 4.17 L (4.60-5.80) X10*6/uL MCV 106.5 H (80.0-98.0) fL MCH 36.2 H (27.0-33.0) pg Plt Count 117 L (160-400) X10*3/uL Lymph % (Auto) 17.5 L (20-40) % [place] % (Auto) 13.0 H (2-11) % PT 18.7 H (11.1-13.3) SEC INR 1.5 H (0.9-1.1) APTT 41.4 H (26.0-36.4) SEC BUN 20 H (9-16) mg/dL POC Glucose 138 H (60-115) mg/dL Random Glucose 151 H (60-115) mg/dL Total Bilirubin 1.4 H (0.0-1.0) mg/dL AST 42 H (5-37) U/L H & H 05/12/23 Range/Units 12:49 Hgb 15.1 (14.0-18.0) g/dl Hct 44.4 (42.0-52.0) % Coagulation 05/12/23 Range/Units 12:49 INR 1.5 H (0.9-1.1) All other labs normal. Diagnostic results Ankle/Foot x-ray: image reviewed (left lateral malleolus fracture with asymmetric mortise and small posterior malleolus fracture that is minimally displaced) Assessment and Plan (1) Ankle fracture, left: Status: Acute Plan THis is a 68 yo on Xarelto with a displaced lateral malleolus fracture and a small posterior malleolus fracture. He sustained this injury at least 18 hours ago and was given antibiotic at [facility]. This is a G1 open fracture with minimal skin breakage. He is swollen and on xarelto. I think the risks of surgery at this moment outweigh the benefits of waiting ~at least 48 hours. He should elevate and will remain off his anticoagulant. The very small wound is clean and he has been given several doses of antibiotics. While the risk of infection is slightly elevated the risk of wound breakdown or further complications due to bleeding and swelling are not justifiable at this moment. I recommend elevation and splinting. The wound has been cleaned and I will re-evaluate in the am. He will be admitted to medicine. Time Spent With Patient Time: Total time managing care of this patient today ____ minutes. Procedures Date of Service Date of Service: 05/12/23
[2023-05-12] MEDS: Magnesium Oxide 400 MG TABLET PO (22:45)
[2023-05-12] MEDS: ceFAZolin Sodium/Dextrose,Iso 2 GM/50 ML PIGGYBACK IV (22:48)
[2023-05-13] VITALS (7 sets, daily range): BP systolic 110–121; BP diastolic 71–80; PULSE 68–150; RESP 16–18; TEMP 35.5–36.6; O2SAT 91–96
[2023-05-13] MEDS: HYDROmorphone HCl 1 MG/ML SYRINGE IVPUSH ×4 (03:45→18:44)
[2023-05-13] MEDS: dilTIAZem HCL 50 MG/10 ML VIAL 10 MG IVPUSH (04:17)
[2023-05-13] MEDS: ceFAZolin Sodium/Dextrose,Iso 2 GM/50 ML PIGGYBACK IV ×3 (05:48→22:30)
--- NOTE | 2023-05-13 07:00 | CA_ITS ---
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 The visually estimated ejection fraction is between 55-60%. - There is a flattened septum in systole and diastole consistent with right ventricular pressure and volume overload. - There is mild septal asymmetric hypertrophy. - Severely increased right ventricular cavity size. There is moderate to severely decreased right ventricular systolic function. - The left atrium is severely dilated. The right atrium is severely dilated. - A bioprosthetic aortic valve is present. The prosthetic aortic valve appears to be functioning normally. There is mild calcification of the aortic valve. - There is severe tricuspid valve regurgitation. Significantly elevated right atrial pressure. There is no evidence of pulmonary hypertension. Findings Procedure Information Contrast agent, definity, is being given per protocol without apparent complications. Left Ventricle Normal left ventricular size and systolic function. The visually estimated ejection fraction is between 55-60%. There is no evidence of regional wall motion abnormalities. There is a flattened septum in systole and diastole consistent with right ventricular pressure and volume overload. Diastolic function is indeterminate on the basis of available data. There is mild septal asymmetric hypertrophy. Right Ventricle Severely increased right ventricular cavity size. There is moderate to severely decreased right ventricular systolic function. Atria The left atrium is severely dilated. The right atrium is severely dilated. Aortic Valve A bioprosthetic aortic valve is present. The prosthetic aortic valve appears to be functioning normally. There is mild calcification of the aortic valve. Mitral Valve The mitral valve appears normal. There is mild mitral valve regurgitation. There is no mitral valve stenosis. Pulmonic Valve The pulmonic valve is normal. There is trace pulmonic valve regurgitation. Tricuspid Valve There is severe tricuspid valve regurgitation. Significantly elevated right atrial pressure. There is no evidence of pulmonary hypertension. Great Vessels There is mild dilatation of the ascending aorta measuring 3.80 cm. The visualized portions of the pulmonary artery and branches are normal. Venous The inferior vena cava is dilated and does not collapse with inspiration. Pericardium/Pleural There is a small pericardial effusion. Prior Study Comparison No prior study available for comparison. Measurements 2D Linear Measurements IVSd: 0.97 0.6-0.9/0.6-1.0 cm LVIDd: 3.95 3.9-5.3/4.2-5.9 cm LVIDd Index: 1.69 2.4-3.2/2.2-3.1 cm/m2 LVIDs: 2.58 2.0-3.6 cm LVPWd: 1.22 0.7-1.1 cm LA Diam: 4.60 2.7-3.8/3.0-4.0 cm LAIDs Index: 1.97 1.5-2.3 cm/m2 LV Mass: 176.40 67-162/88-224 g LV Mass Index: 75.39 43-95/49-115 g/m2 LVOT Diam: 2.10 3.0+(-)1.3 cm Mitral Valve MV Pk E: 1.18 MV Decel Time: 226.00 E'Lateral: 9.78 E'Medial: 6.09 E/E' Med: 19.40 E/E' Lat: 12.10 PHT: 66.00 MVA PHT: 3.33 Decel [place]: 5.22 Aortic Valve AoV Pk Zeferino: 2.49 AoV Mn Zeferino: 1.94 AoV VTI: 0.50 AoV Pk Grad: 25.00 Aov Mn Grad: 16.00 LUCILA Cont.VTI: 0.87 LVOT LVOT Pk Zeferino: 0.67 LVOT Mn Zeferino: 0.50 LVOT VTI: 0.13 LVOT Pk Grad: 2.00 LVOT Mn Grad: 1.00 LVOT Diam: 2.10 LVOT Area: 3.46 Diastolic Function MV Pk E: 1.18 E'Medial: 6.09 E/E' Med: 19.40 E' Laterial: 9.78 E/E' Lat: 12.10 Right Ventricle TAPSE (mm): 12.40 TVS' Zeferino: 6.66 Tricuspid Valve TR Pk Zeferino: 2.30 TR Pk Grad: 21.00 RA Press: 15.00 RVSP: 36.00 Great Vessels Aorta Sinus of Valsalva: 3.30 2.0-3.5 cm Ao Asc: 3.80 2.1-3.4 cm Updated in Other Vendor System with Status of Final Callum Galdamez MD electronically signed on 05/13/2023 5:22:48 PM with status of Final
[2023-05-13] MEDS: Fenofibrate 54 MG TABLET PO (08:42)
[2023-05-13] MEDS: Atorvastatin Calcium 80 MG TABLET PO (08:42)
[2023-05-13] MEDS: Escitalopram Oxalate 10 MG TABLET PO (08:42)
[2023-05-13] MEDS: Magnesium Oxide 400 MG TABLET PO ×2 (08:42→22:28)
[2023-05-13] MEDS: Metoprolol Succinate ER 100 MG TAB.ER.24H PO (08:43)
[2023-05-13] MEDS: 0.9 % Sodium Chloride Flush 3 ML SYRINGE IVFLUSH ×3 (08:44→22:34)
[2023-05-13 09:04] LABS: Hematocrit 45.4 % (42.0-52.0); Hemoglobin 14.9 g/dl (14.0-18.0); Mean Corpuscular HGB Conc 32.8 g/dl (31.0-36.0); Mean Corpuscular Hemoglobin 36.4 pg (27.0-33.0); Mean Platelet Volume 11.2 fL (9.4-12.4); Platelet Count 121 X10*3/uL (160-400); Red Blood Count 4.09 X10*6/uL (4.60-5.80); Red Cell Distribution Width 13.7 % (11.0-16.0); White Blood Count 12.3 X10*3/uL (4.8-10.8)
[2023-05-13 09:29] LABS: B Type Natriuretic Peptide 501 pg/mL (<100)
[2023-05-13 09:33] LABS: Alanine Aminotransferase 23 U/L (0-40); Albumin Level 3.8 g/dL (3.5-5.0); Alkaline Phosphatase 97 U/L (39-117); Anion Gap 19 (12-20); Aspartate Amino Transferase 43 U/L (5-37); Bilirubin Direct 1.2 mg/dL (0.0-0.5); Bilirubin Total 2.1 mg/dL (0.0-1.0); Blood Urea Nitrogen 31 mg/dL (9-16); Calcium 8.7 mg/dL (8.4-10.2); Carbon Dioxide 24 mmol/L (22-29); Chloride 99 mmol/L (96-108); Creatinine Clr Calc Pharmacy 37.3; Estimated Glomerular Filt Rate 27; Glucose Random 140 mg/dL (60-115); Magnesium 1.9 mg/dL (1.6-2.6); Potassium 5.1 mmol/L (3.3-5.1); Sodium 137 mmol/L (135-145); Total Protein 7.5 g/dL (6.5-8.0)
--- NOTE | 2023-05-13 11:00 | HO.PM.IMPN ---
Subjective Subjective Date of Service: 05/13/23 Interval History: left ankle pain Physical Exam Vital Signs: Vital Signs: Last Vital Signs Temp 96.9 F 05/13/23 07:53 Pulse 68 05/13/23 07:53 Resp 18 05/13/23 07:53 BP 120/80 05/13/23 07:53 Pulse Ox 96 05/13/23 07:53 O2 Del Method CPAP 05/13/23 07:53 O2 Flow Rate 2 05/13/23 03:30 BMI result Body Mass Index 33.9 Extrem: Other: left ankle with moderate medial and posterior eccymosis and moderate swelling with + wrinkle test. 2+ DP There is a 2-3 mm abrasion over the medial malleolus that is not bleeding. There is no exposed subdermal tissue. Objective Data Active Medications Acetaminophen (Acetaminophen 325 Mg Tablet) 650 mg PO Q6H PRN PRN Reason: Pain, Mild (Pain Scale 1-3) Atorvastatin Calcium (Atorvastatin Calcium 80 Mg Tablet) 80 mg PO DAILY [facility] Last Admin: 05/13/23 08:42 Dose: 80 mg Documented By: ANNE Docusate Sodium (Docusate Sodium 100 Mg Capsule) 100 mg PO DAILY PRN PRN Reason: Constipation Escitalopram Oxalate (Escitalopram Oxalate 10 Mg Tablet) 10 mg PO DAILY [facility] Last Admin: 05/13/23 08:42 Dose: 10 mg Documented By: ANNE Fenofibrate (Fenofibrate 54 Mg Tablet) 54 mg PO DAILY [facility] Last Admin: 05/13/23 08:42 Dose: 54 mg Documented By: ANNE Fluticasone/Vilanterol (Fluticasone/Vilanterol 100/25 Blst.W.Dev) 1 puff INHALE RDAILY [facility] Last Admin: 05/13/23 07:50 Dose: Not Given Documented By: ABDI Non-Admin Reason: Med Not Available Hydromorphone HCl (Hydromorphone Hcl 1 Mg/Ml Syringe) 1 mg IVPUSH Q4H PRN; Protocol PRN Reason: Pain, Severe (Pain Scale 7-10) Last Admin: 05/13/23 08:43 Dose: 1 mg Documented By: ANNE Cefazolin Sodium/Dextrose (Ancef) 2 gm in 50 mls @ 100 mls/hr IV Q8H [facility] Last Infusion: 05/13/23 06:20 Dose: Infused Documented By: NIA Magnesium Oxide (Magnesium Oxide 400 Mg Tablet) 400 mg PO BID [facility] Last Admin: 05/13/23 08:42 Dose: 400 mg Documented By: ANNE Metoprolol Succinate (Metoprolol Succinate Er 100 Mg Tab.Er.24h) 100 mg PO BID [facility]; Protocol Last Admin: 05/13/23 08:43 Dose: 100 mg Documented By: ANNE Ondansetron HCl (Ondansetron Hcl 4 Mg/2 Ml Vial) 4 mg IVPUSH Q8H PRN PRN Reason: Nausea and Vomiting Sodium Chloride (0.9 % Sodium Chloride Flush 3 Ml Syringe) 3 ml IVFLUSH QSHIFT [facility] Last Admin: 05/13/23 08:44 Dose: 3 ml Documented By: ANNE Labs 05/13/23 08:23 05/13/23 08:23 Labs: Laboratory Results - last 24 hr 05/12/23 05/12/23 05/13/23 12:49 17:53 08:23 MCV 106.5 H 111.0 H MCH 36.2 H 36.4 H MCHC 34.0 32.8 RDW 13.5 13.7 Plt Count 117 L 121 L MPV 10.6 11.2 Immature Gran % (Auto) 0.4 Neut % (Auto) 65.1 Lymph % (Auto) 17.5 L [place] % (Auto) 13.0 H Eos % (Auto) 3.4 Baso % (Auto) 0.6 Lymph # (Auto) 1.2 [place] # (Auto) 0.9 Eos # (Auto) 0.2 Baso # (Auto) 0.0 Abs Immat Gran (auto) 0.03 Absolute Neuts (auto) 4.6 Absolute Nucleated RBC 0.000 0.000 Nucleated RBC % (auto) 0.0 0.0 PT 18.7 H INR 1.5 H APTT 41.4 H Anion Gap 17 19 Estim Creat Clear Calc 91.5 37.3 Estimated GFR > 60 27 POC Glucose 138 H Random Glucose 151 H 140 H Calcium 9.2 8.7 Magnesium 1.7 1.9 Total Bilirubin 1.4 H 2.1 H Direct Bilirubin 1.2 H AST 42 H 43 H ALT 27 23 Alkaline Phosphatase 111 97 B-Natriuretic Peptide Total Protein 7.3 7.5 Albumin 3.7 3.8 05/13/23 08:24 MCV MCH MCHC RDW Plt Count MPV Immature Gran % (Auto) Neut % (Auto) Lymph % (Auto) [place] % (Auto) Eos % (Auto) Baso % (Auto) Lymph # (Auto) [place] # (Auto) Eos # (Auto) Baso # (Auto) Abs Immat Gran (auto) Absolute Neuts (auto) Absolute Nucleated RBC Nucleated RBC % (auto) PT INR APTT Anion Gap Estim Creat Clear Calc Estimated GFR POC Glucose Random Glucose Calcium Magnesium Total Bilirubin Direct Bilirubin AST ALT Alkaline Phosphatase B-Natriuretic Peptide 501 H Total Protein Albumin Assessment and Plan (1) Ankle fracture, left: Status: Acute Plan 68M PMH persistent atrial fibrillation on Xarelto, bioprosthetic aortic valve, hld, etoh dependence, obesity, presented with left ankle pain after falls left ankle open fracture plan for surgery after xarelto washout, 05/14/[address] pain control ILSA check ct abd, nephro eval monitor bmp elevated lfts ?Acute etoh hepatitis, check ct abd, monitor labs acute hypoxic respiratory failure ?acute unspecified chf, check echo, cardio eval cxr persistent afib with rvr xarelto on hold for suregery toprol etoh dependence monitor ciwa obesity wegiht loss macrocytosis b12, folate, tsh (likely etoh) hld statin, fibrate full code reason for continued hospitalization:ilsa Time Spent With Patient Time: Total time managing care of this patient today ____ minutes. Quality Stroke Does the patient have a stroke diagnosis?: No VTE Prior VTE?: No VTE Risk Level:: Medical - moderate - high VTE Device Contraindication: N/A - Device Ordered VTE Drug Contraindication: Treatment Not Indicated
--- NOTE | 2023-05-13 11:30 | PM.CNCAR ---
History of Present Illness History of Present Illness Date of Service: 05/13/23 Requesting physician: Robert Crum Chief complaint: Open fracture of left ankle, syncope, Afib Narrative: 68-year-old gentleman who had aortic valve replacement 6 years ago and follows with Dr. Yannick Thompson at [facility]. He has known history of atrial fibrillation. He has been on Xarelto. He drinks vodka every day and has been drinking for many years. Monday he said he stood up from dinner table and became dizzy and fell to his side. The said he was shaking and was able to answers questions right away and did not completely pass out to have seizure-like activity. Yesterday again he was drinking alcohol and stood up to reach up in a cabinet and felt dizzy and fell to the ground. Unfortunately this time he injured his left ankle and there is a fracture. He was brought in for further assessment. He had AFib with RVR and was given his home dose of metoprolol succinate 100 mg twice a day. His chest x-ray showed venous congestion but no overt pulmonary edema was noticed. He was also given a bolus of 10 mg diltiazem overnight. Is complaining of pain in his left ankle. Is denying any chest discomfort. He has ongoing dyspnea and cannot walk more than a block as per the . The patient is saying that he walked 14 miles early April while he was on a business trip in [place]. [facility] Social History Social History Household Members: Spouse Housing: House Do you presently have visiting nurse or other home services: No Patient Tobacco Use Status: Never used Tobacco Meds Allergies Allergy/AdvReac Type Severity Reaction Status Date / Time No Known Allergies Allergy Unverified 04/16/20 19:13 [No Known Allergies*] Active Medications: Current Medications Acetaminophen (Acetaminophen 325 Mg Tablet) 650 mg PO Q6H PRN PRN Reason: Pain, Mild (Pain Scale 1-3) Atorvastatin Calcium (Atorvastatin Calcium 80 Mg Tablet) 80 mg PO DAILY [facility] Last Admin: 05/13/23 08:42 Dose: 80 mg Docusate Sodium (Docusate Sodium 100 Mg Capsule) 100 mg PO DAILY PRN PRN Reason: Constipation Escitalopram Oxalate (Escitalopram Oxalate 10 Mg Tablet) 10 mg PO DAILY [facility] Last Admin: 10/14/23 08:42 Dose: 10 mg Fenofibrate (Fenofibrate 54 Mg Tablet) 54 mg PO DAILY [facility] Last Admin: 05/13/23 08:42 Dose: 54 mg Fluticasone/Vilanterol (Fluticasone/Vilanterol 100/25 Blst.W.Dev) 1 puff INHALE RDAILY [facility] Last Admin: 05/13/23 07:50 Dose: Not Given Hydromorphone HCl (Hydromorphone Hcl 1 Mg/Ml Syringe) 1 mg IVPUSH Q4H PRN; Protocol PRN Reason: Pain, Severe (Pain Scale 7-10) Last Admin: 05/13/23 08:43 Dose: 1 mg Cefazolin Sodium/Dextrose (Ancef) 2 gm in 50 mls @ 100 mls/hr IV Q8H [facility] Last Infusion: 05/13/23 06:20 Dose: Infused Magnesium Oxide (Magnesium Oxide 400 Mg Tablet) 400 mg PO BID [facility] Last Admin: 05/13/23 08:42 Dose: 400 mg Metoprolol Succinate (Metoprolol Succinate Er 100 Mg Tab.Er.24h) 100 mg PO BID [facility]; Protocol Last Admin: 05/13/23 08:43 Dose: 100 mg Ondansetron HCl (Ondansetron Hcl 4 Mg/2 Ml Vial) 4 mg IVPUSH Q8H PRN PRN Reason: Nausea and Vomiting Sodium Chloride (0.9 % Sodium Chloride Flush 3 Ml Syringe) 3 ml IVFLUSH QSHIFT [facility] Last Admin: 05/13/23 08:44 Dose: 3 ml Home Medications Medication Instructions Recorded Confirmed Last Taken Type aspirin 81 mg tablet,delayed 81 mg PO DAILY 05/12/23 05/12/23 Unknown History release citalopram 20 mg tablet 20 mg PO DAILY 05/12/23 05/12/23 Unknown History fenofibrate 54 mg tablet 54 mg PO DAILY 05/12/23 05/12/23 Unknown History fluticasone furoate 100 1 inh inhalation DAILY 05/12/23 05/12/23 Unknown History mcg-vilanterol 25 mcg/dose inhalation powder (Breo Ellipta) magnesium glycinate 100 mg tablet 500 mg PO DAILY 05/12/23 05/12/23 Unknown History magnesium oxide 400 mg PO BID 05/12/23 05/12/23 Unknown History metoprolol succinate 100 mg 100 mg PO BID 05/12/23 05/12/23 Unknown History tablet,extended release 24 hr omega 6-xqe-pet-fish oil 1,000 mg 2 cap PO DAILY 05/12/23 05/12/23 Unknown History (120 mg-180 mg) capsule (Fish Oil) omeprazole 20 mg capsule,delayed 20 mg PO Q2D@0630 05/12/23 05/12/23 Unknown History release rivaroxaban 20 mg tablet (Xarelto) 20 mg PO DAILY@1700 05/12/23 05/12/23 Unknown History rosuvastatin 20 mg tablet 20 mg PO DAILY 05/12/23 05/12/23 Unknown History Physical Exam Vital Signs: Vital Signs: Last Vital Signs Temp 96.9 F 05/13/23 07:53 Pulse 68 05/13/23 07:53 Resp 18 05/13/23 07:53 BP 120/80 05/13/23 07:53 Pulse Ox 96 05/13/23 07:53 O2 Del Method CPAP 05/13/23 07:53 O2 Flow Rate 2 05/13/23 03:30 BMI result Body Mass Index 33.9 GENERAL APPEARANCE: in no acute distress, pleasant. NECK: no carotid bruit, ++ jugular venous distention. SKIN: no suspicious lesions, warm and dry. HEART: no murmurs, irregular rate and rhythm. LUNGS: clear to auscultation bilaterally. ABDOMEN: soft, nontender. EXTREMITIES: Left ankle in brace with Prem wrap PERIPHERAL PULSES: equal. NEUROLOGIC: No gross deficits, AAO X 3 Objective Labs and Meds 05/13/23 08:23 05/13/23 08:23 Lab results: Laboratory Results - last 24 hr 05/12/23 05/12/23 05/13/23 12:49 17:53 08:23 WBC 7.0 12.3 H RBC 4.17 L 4.09 L Hgb 15.1 14.9 Hct 44.4 45.4 MCV 106.5 H 111.0 H MCH 36.2 H 36.4 H MCHC 34.0 32.8 RDW 13.5 13.7 Plt Count 117 L 121 L MPV 10.6 11.2 Immature Gran % (Auto) 0.4 Neut % (Auto) 65.1 Lymph % (Auto) 17.5 L [place] % (Auto) 13.0 H Eos % (Auto) 3.4 Baso % (Auto) 0.6 Lymph # (Auto) 1.2 [place] # (Auto) 0.9 Eos # (Auto) 0.2 Baso # (Auto) 0.0 Abs Immat Gran (auto) 0.03 Absolute Neuts (auto) 4.6 Absolute Nucleated RBC 0.000 0.000 Nucleated RBC % (auto) 0.0 0.0 PT 18.7 H INR 1.5 H APTT 41.4 H Sodium 142 137 Potassium 4.2 5.1 D Chloride 103 99 Carbon Dioxide 26 24 Anion Gap 17 19 BUN 20 H 31 H Creatinine 0.99 2.43 H Estim Creat Clear Calc 91.5 37.3 Estimated GFR > 60 27 POC Glucose 138 H Random Glucose 151 H 140 H Calcium 9.2 8.7 Magnesium 1.7 1.9 Total Bilirubin 1.4 H 2.1 H Direct Bilirubin 1.2 H AST 42 H 43 H ALT 27 23 Alkaline Phosphatase 111 97 B-Natriuretic Peptide Total Protein 7.3 7.5 Albumin 3.7 3.8 05/13/23 08:24 WBC RBC Hgb Hct MCV MCH MCHC RDW Plt Count MPV Immature Gran % (Auto) Neut % (Auto) Lymph % (Auto) [place] % (Auto) Eos % (Auto) Baso % (Auto) Lymph # (Auto) [place] # (Auto) Eos # (Auto) Baso # (Auto) Abs Immat Gran (auto) Absolute Neuts (auto) Absolute Nucleated RBC Nucleated RBC % (auto) PT INR APTT Sodium Potassium Chloride Carbon Dioxide Anion Gap BUN Creatinine Estim Creat Clear Calc Estimated GFR POC Glucose Random Glucose Calcium Magnesium Total Bilirubin Direct Bilirubin AST ALT Alkaline Phosphatase B-Natriuretic Peptide 501 H Total Protein Albumin Imaging Radiologist's impression: Impressions Ankle X-Ray 05/12/23 12:16 IMPRESSION: Displaced distal fibular fracture with mortise disruption. Chest X-Ray 05/12/23 19:04 IMPRESSION: * Pulmonary vascular congestion without scot failure. * Left hemidiaphragm is partially obscured probably by underlying pleural effusion, infiltrate and/or atelectasis. Assessment and Plan (1) Ankle fracture, left: Status: Acute (2) Dizziness: Status: Acute (3) Congestive heart failure: Status: Acute (4) Persistent atrial fibrillation: Status: Acute Plan [age] year gentleman who has known history of bioprosthetic aortic valve replacement and persistent atrial fibrillation presenting with fall and ankle fracture. It appears he has been dizzy on 2 occasions once on Monday when he fell and again yesterday. The story sounds like orthostasis. He also had previous episodes are similar to this. He was drinking on both occasions it is hard to know whether he does successively drank and fell or truly some syncopal episode happened. He has atrial fibrillation with rapid ventricular response and was given 10 mg diltiazem. He was also started on his Toprol XL 100 mg twice a day. His chest x-ray was showing mild venous congestion. His neck veins are up. 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 He will get an echocardiogram today. Hold further diltiazem. Cut the Toprol-XL 200 mg once a day only. Would avoid diuretics currently. Let us see his echocardiogram and then decide further. I will repeat his creatinine again in the afternoon to see if there is any change. At least intermediate risk currently for perioperative cardiovascular complications. Will review echocardiogram and advise further. I think he will need some medical optimization before he goes to operating room. Hold Joseph. Thank you for allowing me to participate in the care of your patient. Please feel free to contact me if you have any questions. Time Spent With Patient Time: Total time managing care of this patient today ____ minutes. Procedures Date of Service Date of Service: 05/13/23
[2023-05-13 11:52] LABS: Thyroid Stimulating Hormone 2.11 uIU/mL (0.32-4.0)
--- NOTE | 2023-05-13 12:16 | PM.CNOR ---
History of Present Illness HPI Consult date: 05/12/23 Chief complaint: Open fracture of left ankle, syncope, Afib PMFSH Social History Social History Household Members: Spouse Housing: House Do you presently have visiting nurse or other home services: No Patient Tobacco Use Status: Never used Tobacco Meds Allergies Allergy/AdvReac Type Severity Reaction Status Date / Time No Known Allergies Allergy Unverified 04/16/20 19:13 [No Known Allergies*] Active Medications: Current Medications Acetaminophen (Acetaminophen 325 Mg Tablet) 650 mg PO Q6H PRN PRN Reason: Pain, Mild (Pain Scale 1-3) Atorvastatin Calcium (Atorvastatin Calcium 80 Mg Tablet) 80 mg PO DAILY [facility] Last Admin: 05/13/23 08:42 Dose: 80 mg Docusate Sodium (Docusate Sodium 100 Mg Capsule) 100 mg PO DAILY PRN PRN Reason: Constipation Escitalopram Oxalate (Escitalopram Oxalate 10 Mg Tablet) 10 mg PO DAILY [facility] Last Admin: 05/13/23 08:42 Dose: 10 mg Fenofibrate (Fenofibrate 54 Mg Tablet) 54 mg PO DAILY [facility] Last Admin: 05/13/23 08:42 Dose: 54 mg Fluticasone/Vilanterol (Fluticasone/Vilanterol 100/25 Blst.W.Dev) 1 puff INHALE RDAILY [facility] Last Admin: 05/13/23 07:50 Dose: Not Given Hydromorphone HCl (Hydromorphone Hcl 1 Mg/Ml Syringe) 1 mg IVPUSH Q4H PRN; Protocol PRN Reason: Pain, Severe (Pain Scale 7-10) Last Admin: 05/13/23 08:43 Dose: 1 mg Cefazolin Sodium/Dextrose (Ancef) 2 gm in 50 mls @ 100 mls/hr IV Q8H [facility] Last Infusion: 05/13/23 06:20 Dose: Infused Magnesium Oxide (Magnesium Oxide 400 Mg Tablet) 400 mg PO BID [facility] Last Admin: 05/13/23 08:42 Dose: 400 mg Metoprolol Succinate (Metoprolol Succinate Er 100 Mg Tab.Er.24h) 100 mg PO DAILY [facility]; Protocol Morphine Sulfate (Morphine Sulfate Er 15 Mg Tablet.Er) 15 mg PO Q12H [facility] Ondansetron HCl (Ondansetron Hcl 4 Mg/2 Ml Vial) 4 mg IVPUSH Q8H PRN PRN Reason: Nausea and Vomiting Sodium Chloride (0.9 % Sodium Chloride Flush 3 Ml Syringe) [facility] Last Admin: 05/13/23 08:44 Dose: 3 ml Home Medications Medication Instructions Recorded Confirmed Last Taken Type aspirin 81 mg tablet,delayed 81 mg PO DAILY 05/12/23 05/12/23 Unknown History release citalopram 20 mg tablet 20 mg PO DAILY 05/12/23 05/12/23 Unknown History fenofibrate 54 mg tablet 54 mg PO DAILY 05/12/23 05/12/23 Unknown History fluticasone furoate 100 1 inh inhalation DAILY 05/12/23 05/12/23 Unknown History mcg-vilanterol 25 mcg/dose inhalation powder (Breo Ellipta) magnesium glycinate 100 mg tablet 500 mg PO DAILY 05/12/23 05/12/23 Unknown History magnesium oxide 400 mg PO BID 05/12/23 05/12/23 Unknown History metoprolol succinate 100 mg 100 mg PO BID 05/12/23 05/12/23 Unknown History tablet,extended release 24 hr omega 7-neb-eez-fish oil 1,000 mg 2 cap PO DAILY 05/12/23 05/12/23 Unknown History (120 mg-180 mg) capsule (Fish Oil) omeprazole 20 mg capsule,delayed 20 mg PO Q2D@0630 05/12/23 05/12/23 Unknown History release rivaroxaban 20 mg tablet (Xarelto) 20 mg PO DAILY@1700 05/12/23 05/12/23 Unknown History rosuvastatin 20 mg tablet 20 mg PO DAILY 05/12/23 05/12/23 Unknown History Physical Exam Vital Signs: Vital Signs: Last Vital Signs Temp 96.9 F 05/13/23 07:53 Pulse 68 05/13/23 07:53 Resp 18 05/13/23 07:53 BP 120/80 05/13/23 07:53 Pulse Ox 96 05/13/23 07:53 O2 Del Method CPAP 05/13/23 07:53 O2 Flow Rate 2 05/13/23 03:30 BMI result Body Mass Index 33.9 Extrem: Other: swelling decreased palpable pedal pulse Results Labs 05/13/23 08:23 05/13/23 08:23 Labs: Abnormal lab results 05/12/23 05/12/23 05/13/23 Range/Units 12:49 17:53 08:23 WBC 12.3 H (4.8-10.8) X10*3/uL RBC 4.17 L 4.09 L (4.60-5.80) X10*6/uL MCV 106.5 H 111.0 H (80.0-98.0) fL MCH 36.2 H 36.4 H (27.0-33.0) pg Plt Count 117 L 121 L (160-400) X10*3/uL Lymph % (Auto) 17.5 L (20-40) % Nolan % (Auto) 13.0 H (2-11) % PT 18.7 H (11.1-13.3) SEC INR 1.5 H (0.9-1.1) APTT 41.4 H (26.0-36.4) SEC BUN 20 H 31 H (9-16) mg/dL Creatinine 2.43 H (0.5-1.4) mg/dL POC Glucose 138 H (60-115) mg/dL Random Glucose 151 H 140 H (60-115) mg/dL Total Bilirubin 1.4 H 2.1 H (0.0-1.0) mg/dL Direct Bilirubin 1.2 H (0.0-0.5) mg/dL AST 42 H 43 H (5-37) U/L B-Natriuretic Peptide (<100) pg/mL 05/13/23 Range/Units 08:24 WBC (4.8-10.8) X10*3/uL RBC (4.60-5.80) X10*6/uL MCV (80.0-98.0) fL MCH (27.0-33.0) pg Plt Count (160-400) X10*3/uL Lymph % (Auto) (20-40) % Nolan % (Auto) (2-11) % PT (11.1-13.3) SEC INR (0.9-1.1) APTT (26.0-36.4) SEC BUN (9-16) mg/dL Creatinine (0.5-1.4) mg/dL POC Glucose (60-115) mg/dL Random Glucose (60-115) mg/dL Total Bilirubin (0.0-1.0) mg/dL Direct Bilirubin (0.0-0.5) mg/dL AST (5-37) U/L B-Natriuretic Peptide 501 H (<100) pg/mL H & H 05/12/23 05/13/23 Range/Units 12:49 08:23 Hgb 15.1 14.9 (14.0-18.0) g/dl Hct 44.4 45.4 (42.0-52.0) % Coagulation 05/12/23 Range/Units 12:49 INR 1.5 H (0.9-1.1) All other labs normal. Assessment and Plan (1) Ankle fracture, left: Status: Acute Plan Left ankle fracture with acute CHF and renal insufficiency with Cr 2.4 Surgery postponed until stabilizes Discussed with patient cont elevation and po pain control Time Spent With Patient Time: Total time managing care of this patient today ____ minutes. Procedures Date of Service Date of Service: 05/13/23
--- NOTE | 2023-05-13 12:28 | MHC.CM.PN ---
Addendum entered by Enriqueta Berry 05/13/23 16:08: [facility] HAS ACCEPTED REFERRAL Original Note: CM MET WITH PT AND AT BEDSIDE PT LIVES AT HOME WITH HIS AND IS INDEPENDENT WITH CARE DOCUMENTATION LEAD HE HAD NO SERVICES AND NO ASSISTIVE DEVICE HE DOES USE A CPAP AT NIGHT PT SAYS HE HAS A HCP, COPY REQUESTED PCP: CHANELL RODRIGUEZ PT AND REPORT HE PLANS TO GO HOME AT DC HE IS AGREEABLE TO HOME PT SERVICES BEING ARRANGED DCP: HOME WITH [facility] FOR PT SERVICES TO TRANSPORT
[2023-05-13] MEDS: Morphine Sulfate ER 15 MG TABLET.ER PO (12:42)
[2023-05-13] MEDS: Acetaminophen 325 MG TABLET 650 MG PO (14:12)
[2023-05-13 15:00] LABS: Appearance Urine Cloudy; Color Urine Dark Yellow; Glucose Urine UA Negative (Negative); Leukocyte Esterase Urine Trace (Negative); Nitrite Urine Negative (Negative); Specific Gravity - Urine 1.025 (1.005-1.025); UMIC TRIGGER UA YES; Urine Blood Negative (Negative); Urine Ketones Negative (Negative); Urine Protein 100 (2+) mg/dL (Neg-Trace)
[2023-05-13 15:09] LABS: Bacteria Urine None Seen (None Seen); Calcium Oxalate Crystals Urine Present; Granular Casts Urine Present; RBC Urine 0-2 /HPF (0-2); WBC Urine 0-5 /HPF (0-5)
[2023-05-13 15:15] LABS: Creatinine Urine 266.96 mg/dL; Total Protein Urine Random 131 mg/dL (<12)
[2023-05-13 19:47] LABS: Anion Gap 19 (12-20); Blood Urea Nitrogen 36 mg/dL (9-16); Carbon Dioxide 26 mmol/L (22-29); Chloride 97 mmol/L (96-108); Creatinine Clr Calc Pharmacy 42.1; Estimated Glomerular Filt Rate 31; Sodium 137 mmol/L (135-145)
[2023-05-14] MEDS: Morphine Sulfate ER 15 MG TABLET.ER PO ×3 (01:05→23:40)
[2023-05-14 03:47] VITALS: BP 122/66; PULSE 75; RESP 16; TEMP 37; O2SAT 95
[2023-05-14] MEDS: HYDROmorphone HCl 1 MG/ML SYRINGE IVPUSH ×2 (04:40→19:57)
[2023-05-14] MEDS: ceFAZolin Sodium/Dextrose,Iso 2 GM/50 ML PIGGYBACK IV ×3 (05:36→20:02)
[2023-05-14 06:50] LABS: Hematocrit 41.2 % (42.0-52.0); Hemoglobin 13.7 g/dl (14.0-18.0); Mean Corpuscular HGB Conc 33.3 g/dl (31.0-36.0); Mean Corpuscular Hemoglobin 36.2 pg (27.0-33.0); Red Blood Count 3.78 X10*6/uL (4.60-5.80); Red Cell Distribution Width 13.3 % (11.0-16.0); White Blood Count 9.5 X10*3/uL (4.8-10.8)
[2023-05-14 06:54] LABS: INTERNATIONAL NORM RATIO 1.4 (0.9-1.1); Prothrombin Time 17.2 SEC (11.1-13.3)
[2023-05-14 07:08] LABS: Alanine Aminotransferase 14 U/L (0-40); Albumin Level 3.5 g/dL (3.5-5.0); Alkaline Phosphatase 80 U/L (39-117); Anion Gap 15 (12-20); Aspartate Amino Transferase 37 U/L (5-37); Bilirubin Direct 1.3 mg/dL (0.0-0.5); Bilirubin Total 2.2 mg/dL (0.0-1.0); Blood Urea Nitrogen 33 mg/dL (9-16); Calcium 8.9 mg/dL (8.4-10.2); Carbon Dioxide 26 mmol/L (22-29); Chloride 98 mmol/L (96-108); Creatinine Clr Calc Pharmacy 62.9; Estimated Glomerular Filt Rate 49; Glucose Fasting 113 mg/dL (60-99); Magnesium 1.9 mg/dL (1.6-2.6); Potassium 4.4 mmol/L (3.3-5.1); Sodium 135 mmol/L (135-145); Total Protein 6.9 g/dL (6.5-8.0)
[2023-05-14 07:31] LABS: Platelet Count 97 X10*3/uL (160-400)
[2023-05-14 07:35] VITALS: BP 121/73; PULSE 85; RESP 16; TEMP 36.2; O2SAT 96
[2023-05-14] MEDS: Escitalopram Oxalate 10 MG TABLET PO (09:25)
[2023-05-14] MEDS: Magnesium Oxide 400 MG TABLET PO ×2 (09:25→19:57)
[2023-05-14] MEDS: Metoprolol Succinate ER 100 MG TAB.ER.24H PO (09:25)
[2023-05-14] MEDS: Fenofibrate 54 MG TABLET PO (09:25)
[2023-05-14] MEDS: Atorvastatin Calcium 80 MG TABLET PO (09:25)
[2023-05-14] MEDS: 0.9 % Sodium Chloride Flush 3 ML SYRINGE IVFLUSH ×3 (09:27→20:03)
--- NOTE | 2023-05-14 10:48 | HO.PM.IMPN ---
Subjective Subjective Date of Service: 05/14/23 Interval History: ankle pain Physical Exam Vital Signs: Vital Signs: Last Vital Signs Temp 97.1 F 05/14/23 07:35 Pulse 85 05/14/23 07:35 Resp 16 05/14/23 07:35 BP 121/73 05/14/23 07:35 Pulse Ox 96 05/14/23 07:35 O2 Del Method Nasal Cannula 05/14/23 07:35 O2 Flow Rate 2 05/14/23 07:35 BMI result Body Mass Index 33.9 Extrem: Other: swelling decreased palpable pedal pulse Objective Data Active Medications Acetaminophen (Acetaminophen 325 Mg Tablet) 650 mg PO Q6H PRN PRN Reason: Pain, Mild (Pain Scale 1-3) Last Admin: 05/13/23 14:12 Dose: 650 mg Documented By: ANNE Atorvastatin Calcium (Atorvastatin Calcium 80 Mg Tablet) 80 mg PO DAILY [facility] Last Admin: 05/14/23 09:25 Dose: 80 mg Documented By: NICHELLE Digoxin (Digoxin 0.125 Mg Tablet) 0.125 mg PO Q2D [facility] Docusate Sodium (Docusate Sodium 100 Mg Capsule) 100 mg PO DAILY PRN PRN Reason: Constipation Escitalopram Oxalate (Escitalopram Oxalate 10 Mg Tablet) 10 mg PO DAILY [facility] Last Admin: 05/14/23 09:25 Dose: 10 mg Documented By: NICHELLE Fenofibrate (Fenofibrate 54 Mg Tablet) 54 mg PO DAILY [facility] Last Admin: 05/14/23 09:25 Dose: 54 mg Documented By: NICHELLE Fluticasone/Vilanterol (Fluticasone/Vilanterol 100/25 Blst.W.Dev) 1 puff INHALE RDAILY [facility] Last Admin: 05/14/23 07:48 Dose: Not Given Documented By: ABDI Non-Admin Reason: Med Not Available Furosemide (Furosemide 20 Mg/2 Ml Vial) 20 mg IVPUSH DAILY [facility]; Protocol Hydromorphone HCl (Hydromorphone Hcl 1 Mg/Ml Syringe) 1 mg IVPUSH Q4H PRN; Protocol PRN Reason: Pain, Severe (Pain Scale 7-10) Last Admin: 05/14/23 04:40 Dose: 1 mg Documented By: NIA Cefazolin Sodium/Dextrose (Ancef) 2 gm in 50 mls @ 100 mls/hr IV Q8H [facility] Last Infusion: 05/14/23 06:10 Dose: Infused Documented By: NIA Magnesium Oxide (Magnesium Oxide 400 Mg Tablet) 400 mg PO BID [facility] Last Admin: 05/14/23 09:25 Dose: 400 mg Documented By: NICHELLE Metoprolol Succinate (Metoprolol Succinate Er 50 Mg Tab.Er.24h) 50 mg PO DAILY [facility]; Protocol Morphine Sulfate (Morphine Sulfate Er 15 Mg Tablet.Er) 15 mg PO Q12H [facility] Last Admin: 05/14/23 01:05 Dose: 15 mg Documented By: NIA Ondansetron HCl (Ondansetron Hcl 4 Mg/2 Ml Vial) 4 mg IVPUSH Q8H PRN PRN Reason: Nausea and Vomiting Sodium Chloride (0.9 % Sodium Chloride Flush 3 Ml Syringe) 3 ml IVFLUSH QSHIFT [facility] Last Admin: 05/14/23 09:27 Dose: 3 ml Documented By: NICHELLE Labs 05/14/23 06:18 05/14/23 06:18 Labs: Laboratory Results - last 24 hr 05/13/23 05/13/23 05/13/23 08:23 14:42 14:43 MCV MCH MCHC RDW Plt Count MPV Absolute Nucleated RBC Nucleated RBC % (auto) PT INR Anion Gap Estim Creat Clear Calc Estimated GFR Fasting Glucose Calcium Magnesium Total Bilirubin Direct Bilirubin AST ALT Alkaline Phosphatase Total Creatine Kinase 187 H Total Protein Albumin TSH 2.11 Urine Color Dark Yellow Urine Appearance Cloudy Urine pH 5.0 Ur Specific [place] 1.025 Urine Protein 100 (2+) H Urine Glucose (UA) Negative Urine Ketones Negative Urine Blood Negative Urine Nitrite Negative Ur Leukocyte Esterase Trace H Urine RBC 0-2 Urine WBC 0-5 Ur Squamous Epith Cells 6-10 Calcium Oxalate Crystal Present Urine Bacteria None Seen Hyaline Casts 3-5 Granular Casts Present U Random Total Protein 131 H Ur Random Sodium 38.0 Urine Creatinine 266.96 05/13/23 05/14/23 19:31 06:18 MCV 109.0 H MCH 36.2 H MCHC 33.3 RDW 13.3 Plt Count 97 L MPV 11.0 Absolute Nucleated RBC 0.000 Nucleated RBC % (auto) 0.0 PT 17.2 H INR 1.4 H Anion Gap 19 15 Estim Creat Clear Calc 42.1 62.9 Estimated GFR 31 49 Fasting Glucose 113 H Calcium 8.9 Magnesium 1.9 Total Bilirubin 2.2 H Direct Bilirubin 1.3 H AST 37 ALT 14 Alkaline Phosphatase 80 Total Creatine Kinase Total Protein 6.9 Albumin 3.5 TSH Urine Color Urine Appearance Urine pH Ur Specific [place] Urine Protein Urine Glucose (UA) Urine Ketones Urine Blood Urine Nitrite Ur Leukocyte Esterase Urine RBC Urine WBC Ur Squamous Epith Cells Calcium Oxalate Crystal Urine Bacteria Hyaline Casts Granular Casts U Random Total Protein Ur Random Sodium Urine Creatinine Microbiology Microbiology Results: Microbiology 05/12/23 12:49 Blood Culture - Preliminary Blood - Venous No growth after 24 hours. 05/12/23 12:39 Blood Culture - Preliminary Blood - Venous No growth after 24 hours. Assessment and Plan (1) Ankle fracture, left: Status: Acute Plan 68M PMH persistent atrial fibrillation on Xarelto, bioprosthetic aortic valve, hld, etoh dependence, obesity, presented with left ankle pain after falls left ankle open fracture plan for surgery once medically optimized iv ancef pain control ILSA improved, monitor ?due to nsaids vs poor perfusion from cardizem and right heart failure acute hypoxic respiratory failured and acute right heart failure iv lasix check vq scan elevated lfts ?Acute etoh hepatitis vs hepatic congestion, follow up ct abd, monitor labs persistent afib with rvr xarelto on hold for surgery toprol etoh dependence monitor ciwa obesity weight loss hld statin, fibrate full code reason for continued hospitalization: plan for surgery Time Spent With Patient Time: Total time managing care of this patient today ____ minutes. Quality Stroke Does the patient have a stroke diagnosis?: No VTE Prior VTE?: No VTE Risk Level:: Medical - moderate - high VTE Device Contraindication: N/A - Device Ordered VTE Drug Contraindication: Treatment Not Indicated
[2023-05-14] MEDS: Digoxin 0.125 MG TABLET PO (12:03)
--- NOTE | 2023-05-14 12:12 | PM.PNCARD ---
Subjective Subjective Date of Service: 05/14/23 Interval history: Seen examined at bedside. Echocardiography results discussed with the patient. He will be going to operating room on Monday. Currently on Xarelto. Physical Exam Vital Signs: Last Vital Signs Temp 97.1 F 05/14/23 07:35 Pulse 85 05/14/23 07:35 Resp 16 05/14/23 07:35 BP 121/73 05/14/23 07:35 Pulse Ox 96 05/14/23 07:35 O2 Del Method Nasal Cannula 05/14/23 07:35 O2 Flow Rate 2 05/14/23 07:35 BMI result Body Mass Index 33.9 GENERAL APPEARANCE: in no acute distress, pleasant. NECK: no carotid bruit, + jugular venous distention. SKIN: no suspicious lesions, warm and dry. HEART: no murmurs, irregular rate and rhythm. LUNGS: clear to auscultation bilaterally. ABDOMEN: soft, nontender. EXTREMITIES: no edema. Left leg in cast with Prem wrap. PERIPHERAL PULSES: equal. NEUROLOGIC: No gross deficits, AAO X 3 Objective Labs and Meds 05/14/23 06:18 05/14/23 06:18 Lab results: Laboratory Results - last 24 hr 05/13/23 05/13/23 05/13/23 08:23 14:42 14:43 WBC RBC Hgb Hct MCV MCH MCHC RDW Plt Count MPV Absolute Nucleated RBC Nucleated RBC % (auto) PT INR Sodium Potassium Chloride Carbon Dioxide Anion Gap BUN Creatinine Estim Creat Clear Calc Estimated GFR Fasting Glucose Calcium Magnesium Total Bilirubin Direct Bilirubin AST ALT Alkaline Phosphatase Total Creatine Kinase 187 H Total Protein Albumin Urine Color Dark Yellow Urine Appearance Cloudy Urine pH 5.0 Ur Specific [place] 1.025 Urine Protein 100 (2+) H Urine Glucose (UA) Negative Urine Ketones Negative Urine Blood Negative Urine Nitrite Negative Ur Leukocyte Esterase Trace H Urine RBC 0-2 Urine WBC 0-5 Ur Squamous Epith Cells 6-10 Calcium Oxalate Crystal Present Urine Bacteria None Seen Hyaline Casts 3-5 Granular Casts Present U Random Total Protein 131 H Ur Random Sodium 38.0 Urine Creatinine 266.96 05/13/23 05/14/23 19:31 06:18 WBC 9.5 RBC 3.78 L Hgb 13.7 L Hct 41.2 L MCV 109.0 H MCH 36.2 H MCHC 33.3 RDW 13.3 Plt Count 97 L MPV 11.0 Absolute Nucleated RBC 0.000 Nucleated RBC % (auto) 0.0 PT 17.2 H INR 1.4 H Sodium 137 135 Potassium 5.0 4.4 Chloride 97 98 Carbon Dioxide 26 26 Anion Gap 19 15 BUN 36 H 33 H Creatinine 2.15 H 1.44 H Estim Creat Clear Calc 42.1 62.9 Estimated GFR 31 49 Fasting Glucose 113 H Calcium 8.9 Magnesium 1.9 Total Bilirubin 2.2 H Direct Bilirubin 1.3 H AST 37 ALT 14 Alkaline Phosphatase 80 Total Creatine Kinase Total Protein 6.9 Albumin 3.5 Urine Color Urine Appearance Urine pH Ur Specific [place] Urine Protein Urine Glucose (UA) Urine Ketones Urine Blood Urine Nitrite Ur Leukocyte Esterase Urine RBC Urine WBC Ur Squamous Epith Cells Calcium Oxalate Crystal Urine Bacteria Hyaline Casts Granular Casts U Random Total Protein Ur Random Sodium Urine Creatinine Imaging Radiologist's impression: Impressions Renal Ultrasound 05/13/23 13:00 IMPRESSION: Unremarkable renal ultrasound. Progress Note: A&P Assessment and plan (1) Persistent atrial fibrillation: Status: Acute (2) Congestive heart failure: Status: Acute Assessment and Plan: [age] gentleman presenting with dizziness and fall with ankle fracture. Echocardiography is showing severe RV dilation and dysfunction with severe tricuspid valve regurgitation creatinine worsened after he received diltiazem. Please avoid further negative ionotropic agents. Decrease the Toprol-XL dose to 50 mg daily. Adding digoxin 125 mcg every other day. Start him on 40 mg IV b.i.d. Lasix. We need records from [facility]. Doing a V/Q scan given acute kidney injury. I think he should stay on Lovenox bridge till he goes to operating room. Tentative plan is Monday. If tolerating diuresis and creatinine stable then add spironolactone 25 mg daily tomorrow morning. Thank you for allowing me to participate in the care of your patient. Please feel free to contact me if you have any questions. Time Spent With Patient Time: Total time managing care of this patient today ____ minutes. Progress Note: Quality Stroke Does the patient have a stroke diagnosis?: No Procedures Date of Service Date of Service: 05/14/23
[2023-05-14] MEDS: Enoxaparin Sodium 120 MG/0.8 ML SYRINGE SUBCUT ×2 (12:49→23:40)
--- NOTE | 2023-05-14 14:26 | PM.PNNEP ---
Subjective Subjective Date of Service: 05/14/23 Interval history: Seen and examined, events noted Physical Exam Vital Signs: Vital Signs: Last Vital Signs Temp 97.1 F 05/14/23 07:35 Pulse 85 05/14/23 07:35 Resp 16 05/14/23 07:35 BP 121/73 05/14/23 07:35 Pulse Ox 96 05/14/23 07:35 O2 Del Method Nasal Cannula 05/14/23 07:35 O2 Flow Rate 2 05/14/23 07:35 BMI result Body Mass Index 33.9 Const: General: cooperative, no acute distress, alert and awake Nutritional Appearance: well nourished Orientation/consciousness: patient oriented x3 Limitations: no limitations HEENT: Head: Yes normal to inspection and Yes atraumatic Ears: hearing grossly normal bilaterally and external ears normal General nose exam: Normal external nose present, no nasal discharge noted and no epistaxis Face and sinus: Yes normal facial exam, No abrasion and No laceration Mouth: Normal oral and palatal mucosa present, no drooling and no muffled voice Eyes: General: appearance normal, both eyes and all related structures Periorbital: periorbital findings normal Eyelids: Yes eyelids normal Conjunctivae: conjunctivae normal Pupils: Equal, round and reactive pupils present EOM: EOMs intact bilaterally Neck: Neck: Yes normal visual inspection, Yes full ROM and Yes no lymphadenopathy Chest: Chest palpation & inspection: normal inspection of the chest Resp: Effort & Inspection: normal respiratory effort and able to speak in complete sentences GI: Inspection: Yes normal to inspection Neuro: General: patient oriented x3 and moves all extremities Cranial nerves: Yes Equal, round and reactive pupils present Cognition (Neuro): normal cognition Motor exam (neuro): 5/5 motor strength present throughout Sensory Exam: Normal double simultaneous stimulation for sensation Coordination: [id number] test normal Extrem: Other: swelling decreased palpable pedal pulse General: Yes capillary refill normal Psych: Appearance: grossly normal Mental Status: mental status grossly normal Affect: normal affect Attitude: cooperative Thought process: Normal thought process present Thought content: Normal thought content present Insight: Good insight present (Psych) Objective Data Labs 05/14/23 06:18 05/14/23 06:18 Labs: Laboratory Results - last 24 hr 05/13/23 05/13/23 05/13/23 14:42 14:43 19:31 WBC RBC Hgb Hct MCV MCH MCHC RDW Plt Count MPV Absolute Nucleated RBC Nucleated RBC % (auto) PT INR Sodium 137 Potassium 5.0 Chloride 97 Carbon Dioxide 26 Anion Gap 19 BUN 36 H Creatinine 2.15 H Estim Creat Clear Calc 42.1 Estimated GFR 31 Fasting Glucose Calcium Magnesium Total Bilirubin Direct Bilirubin AST ALT Alkaline Phosphatase Total Protein Albumin Urine Color Dark Yellow Urine Appearance Cloudy Urine pH 5.0 Ur Specific [place] 1.025 Urine Protein 100 (2+) H Urine Glucose (UA) Negative Urine Ketones Negative Urine Blood Negative Urine Nitrite Negative Ur Leukocyte Esterase Trace H Urine RBC 0-2 Urine WBC 0-5 Ur Squamous Epith Cells 6-10 Calcium Oxalate Crystal Present Urine Bacteria None Seen Hyaline Casts 3-5 Granular Casts Present U Random Total Protein 131 H Ur Random Sodium 38.0 Urine Creatinine 266.96 05/14/23 06:18 WBC 9.5 RBC 3.78 L Hgb 13.7 L Hct 41.2 L MCV 109.0 H MCH 36.2 H MCHC 33.3 RDW 13.3 Plt Count 97 L MPV 11.0 Absolute Nucleated RBC 0.000 Nucleated RBC % (auto) 0.0 PT 17.2 H INR 1.4 H Sodium 135 Potassium 4.4 Chloride 98 Carbon Dioxide 26 Anion Gap 15 BUN 33 H Creatinine 1.44 H Estim Creat Clear Calc 62.9 Estimated GFR 49 Fasting Glucose 113 H Calcium 8.9 Magnesium 1.9 Total Bilirubin 2.2 H Direct Bilirubin 1.3 H AST 37 ALT 14 Alkaline Phosphatase 80 Total Protein 6.9 Albumin 3.5 Urine Color Urine Appearance Urine pH Ur Specific [place] Urine Protein Urine Glucose (UA) Urine Ketones Urine Blood Urine Nitrite Ur Leukocyte Esterase Urine RBC Urine WBC Ur Squamous Epith Cells Calcium Oxalate Crystal Urine Bacteria Hyaline Casts Granular Casts U Random Total Protein Ur Random Sodium Urine Creatinine Microbiology Microbiology Results: Microbiology 05/12/23 12:49 Blood - Venous Blood Culture - Preliminary No growth after 24 hours. 05/12/23 12:39 Blood - Venous Blood Culture - Preliminary No growth after 24 hours. Procedures Date of Service Date of Service: 05/14/23 Assessment & Plan Assessment and plan (1) Persistent atrial fibrillation: Status: Acute (2) Congestive heart failure: Status: Acute Assessment and Plan: 1. ILSA: improved c/w renal hypoperfusiin d/t severe RH dysfunc as noted by ECH and cards 2. Hypervol: duresis as tolerated HDynamically Severe RH dysfunc with svere TR: cards evaluating REC: track UOP/renal func; avooid NToxins; agree with diuretics as noted Time Spent With Patient Time: Total time managing care of this patient today ____ minutes. Progress Note: Quality Stroke Does the patient have a stroke diagnosis?: No
[2023-05-14 16:00] VITALS: BP 125/74; PULSE 99; RESP 18; TEMP 37.2; O2SAT 96
[2023-05-14] MEDS: Furosemide 40 MG/4 ML VIAL IVPUSH (17:02)
--- NOTE | 2023-05-14 18:43 | PM.PNORT ---
Subjective Subjective Date of Service: 05/14/23 Principal diagnosis: left ankle fracture with ARF and CHF Interval history: Feeling well Cr improving Physical Exam Vital Signs: Vital Signs: Last Vital Signs Temp 99 F 05/14/23 16:00 Pulse 99 05/14/23 16:00 Resp 18 05/14/23 16:00 BP 125/74 05/14/23 16:00 Pulse Ox 96 05/14/23 16:00 O2 Del Method Room Air 05/14/23 16:00 O2 Flow Rate 2 05/14/23 07:35 BMI result Body Mass Index 33.9 Extrem: Other: Elevating and splint intact no complaints Procedures Date of Service Date of Service: 05/14/23 Progress Note: A&P Assessment and plan (1) Ankle fracture, left: Status: Acute Assessment and Plan: Surgery pending medical clearance Cr improving Cardiology workup ongoing Continue to elevate and will monito daily (2) Persistent atrial fibrillation: Status: Acute (3) Congestive heart failure: Status: Acute Time Spent With Patient Time: Total time managing care of this patient today ____ minutes. Quality Stroke Does the patient have a stroke diagnosis?: No VTE Prior VTE?: No VTE Risk Level:: Medical - moderate - high VTE Device Contraindication: N/A - Device Ordered VTE Drug Contraindication: Treatment Not Indicated
[2023-05-14 19:44] VITALS: BP 112/64; PULSE 92; RESP 18; TEMP 37.3; O2SAT 95
[2023-05-14 22:48] VITALS: RESP 18
[2023-05-15 03:18] VITALS: BP 118/66; PULSE 86; RESP 16; TEMP 37.3; O2SAT 95
[2023-05-15] MEDS: HYDROmorphone HCl 1 MG/ML SYRINGE IVPUSH ×5 (06:19→20:33)
[2023-05-15] MEDS: ceFAZolin Sodium/Dextrose,Iso 2 GM/50 ML PIGGYBACK IV ×3 (06:19→20:33)
[2023-05-15 06:59] LABS: Hematocrit 42.1 % (42.0-52.0); Hemoglobin 14.2 g/dl (14.0-18.0); Mean Corpuscular HGB Conc 33.7 g/dl (31.0-36.0); Mean Corpuscular Hemoglobin 36.1 pg (27.0-33.0); Mean Corpuscular Volume 107.1 fL (80.0-98.0); Platelet Count 120 X10*3/uL (160-400); Red Blood Count 3.93 X10*6/uL (4.60-5.80); Red Cell Distribution Width 13.2 % (11.0-16.0); White Blood Count 9.3 X10*3/uL (4.8-10.8)
[2023-05-15 07:15] VITALS: BP 113/67; PULSE 99; RESP 20; TEMP 36.7; O2SAT 95
[2023-05-15 07:21] LABS: Alanine Aminotransferase 9 U/L (0-40); Albumin Level 3.4 g/dL (3.5-5.0); Alkaline Phosphatase 109 U/L (39-117); Anion Gap 16 (12-20); Aspartate Amino Transferase 39 U/L (5-37); Bilirubin Direct 1.6 mg/dL (0.0-0.5); Bilirubin Total 2.9 mg/dL (0.0-1.0); Blood Urea Nitrogen 26 mg/dL (9-16); Calcium 9.1 mg/dL (8.4-10.2); Carbon Dioxide 29 mmol/L (22-29); Chloride 94 mmol/L (96-108); Creatinine Clr Calc Pharmacy 83.1; Estimated Glomerular Filt Rate > 60; Glucose Fasting 115 mg/dL (60-99); Magnesium 1.7 mg/dL (1.6-2.6); Potassium 4.1 mmol/L (3.3-5.1); Sodium 135 mmol/L (135-145)
[2023-05-15] MEDS: Magnesium Oxide 400 MG TABLET PO ×2 (08:00→20:33)
[2023-05-15] MEDS: Atorvastatin Calcium 80 MG TABLET PO (08:00)
[2023-05-15] MEDS: Docusate Sodium 100 MG CAPSULE PO (08:00)
[2023-05-15] MEDS: Acetaminophen 325 MG TABLET 650 MG PO (08:00)
[2023-05-15] MEDS: Escitalopram Oxalate 10 MG TABLET PO (08:00)
[2023-05-15] MEDS: Fenofibrate 54 MG TABLET PO (08:00)
[2023-05-15] MEDS: Spironolactone 25 MG TABLET PO (08:00)
[2023-05-15] MEDS: Metoprolol Succinate ER 50 MG TAB.ER.24H PO (08:00)
[2023-05-15] MEDS: Furosemide 40 MG/4 ML VIAL IVPUSH ×2 (08:01→17:37)
[2023-05-15] MEDS: 0.9 % Sodium Chloride Flush 3 ML SYRINGE IVFLUSH ×3 (08:01→20:34)
--- NOTE | 2023-05-15 09:02 | HO.PM.IMPN ---
Subjective Subjective Date of Service: 05/15/23 Interval History: improving Physical Exam Vital Signs: Vital Signs: Last Vital Signs Temp 98.1 F 05/15/23 07:15 Pulse 99 05/15/23 07:15 Resp 20 05/15/23 07:15 BP 113/67 05/15/23 07:15 Pulse Ox 95 05/15/23 07:15 O2 Del Method Nasal Cannula 05/15/23 07:15 O2 Flow Rate 2 05/15/23 07:15 BMI result Body Mass Index 33.9 Extrem: Other: Elevating and splint intact no complaints Objective Data Active Medications Acetaminophen (Acetaminophen 325 Mg Tablet) 650 mg PO Q6H PRN PRN Reason: Pain, Mild (Pain Scale 1-3) Last Admin: 05/15/23 08:00 Dose: 650 mg Documented By: DARRIUS Atorvastatin Calcium (Atorvastatin Calcium 80 Mg Tablet) 80 mg PO DAILY [facility] Last Admin: 05/15/23 08:00 Dose: 80 mg Documented By: DARRIUS Digoxin (Digoxin 0.125 Mg Tablet) 0.125 mg PO Q2D [facility] Last Admin: 05/14/23 12:03 Dose: 0.125 mg Documented By: NICHELLE Docusate Sodium (Docusate Sodium 100 Mg Capsule) 100 mg PO DAILY PRN PRN Reason: Constipation Last Admin: 05/15/23 08:00 Dose: 100 mg Documented By: DARRIUS Enoxaparin Sodium (Enoxaparin Sodium 120 Mg/0.8 Ml Syringe) 120 mg 1 mg/kg (120 mg) SUBCUT Q12H [facility] Last Admin: 05/14/23 23:40 Dose: 120 mg Documented By: CODY Escitalopram Oxalate (Escitalopram Oxalate 10 Mg Tablet) 10 mg PO DAILY [facility] Last Admin: 05/15/23 08:00 Dose: 10 mg Documented By: DARRIUS Fenofibrate (Fenofibrate 54 Mg Tablet) 54 mg PO DAILY [facility] Last Admin: 05/15/23 08:00 Dose: 54 mg Documented By: DARRIUS Fluticasone/Vilanterol (Fluticasone/Vilanterol 100/25 Blst.W.Dev) 1 puff INHALE RDAILY [facility] Last Admin: 05/15/23 08:21 Dose: Not Given Documented By: KERLINE Non-Admin Reason: pharmacy called Furosemide (Furosemide 40 Mg/4 Ml Vial) 40 mg IVPUSH BID@0900,1800 [facility]; Protocol Last Admin: 05/15/23 08:01 Dose: 40 mg Documented By: DARRIUS Hydromorphone HCl (Hydromorphone Hcl 1 Mg/Ml Syringe) 1 mg IVPUSH Q4H PRN; Protocol PRN Reason: Pain, Severe (Pain Scale 7-10) Last Admin: 05/15/23 06:19 Dose: 1 mg Documented By: CODY Cefazolin Sodium/Dextrose (Ancef) 2 gm in 50 mls @ 100 mls/hr IV Q8H [facility] Last Infusion: 05/15/23 07:23 Dose: Infused Documented By: DARRIUS Magnesium Oxide (Magnesium Oxide 400 Mg Tablet) 400 mg PO BID [facility] Last Admin: 05/15/23 08:00 Dose: 400 mg Documented By: DARRIUS Metoprolol Succinate (Metoprolol Succinate Er 50 Mg Tab.Er.24h) 50 mg PO DAILY [facility]; Protocol Last Admin: 05/15/23 08:00 Dose: 50 mg Documented By: DARRIUS Morphine Sulfate (Morphine Sulfate Er 15 Mg Tablet.Er) 15 mg PO Q12H [facility] Last Admin: 05/14/23 23:40 Dose: 15 mg Documented By: CODY Ondansetron HCl (Ondansetron Hcl 4 Mg/2 Ml Vial) 4 mg IVPUSH Q8H PRN PRN Reason: Nausea and Vomiting Sodium Chloride (0.9 % Sodium Chloride Flush 3 Ml Syringe) 3 ml IVFLUSH QSHIFT [facility] Last Admin: 05/15/23 08:01 Dose: 3 ml Documented By: DARRIUS Spironolactone (Spironolactone 25 Mg Tablet) 25 mg PO DAILY [facility]; Protocol Last Admin: 05/15/23 08:00 Dose: 25 mg Documented By: DARRIUS Labs 05/15/23 06:14 05/15/23 06:14 Labs: Laboratory Results - last 24 hr 05/15/23 06:14 MCV 107.1 H MCH 36.1 H MCHC 33.7 RDW 13.2 Plt Count 120 L MPV 11.0 Absolute Nucleated RBC 0.000 Nucleated RBC % (auto) 0.0 Anion Gap 16 Estim Creat Clear Calc 83.1 Estimated GFR > 60 Fasting Glucose 115 H Calcium 9.1 Magnesium 1.7 Total Bilirubin 2.9 H Direct Bilirubin 1.6 H AST 39 H ALT 9 Alkaline Phosphatase 109 Total Protein 7.0 Albumin 3.4 L Microbiology Microbiology Results: Microbiology 05/12/23 12:49 Blood Culture - Preliminary Blood - Venous No growth after 48 hours. 05/12/23 12:39 Blood Culture - Preliminary Blood - Venous No growth after 48 hours. Assessment and Plan (1) Ankle fracture, left: Status: Acute Plan 68M PMH persistent atrial fibrillation on Xarelto, bioprosthetic aortic valve, hld, etoh dependence, obesity, presented with left ankle pain after falls left ankle open fracture plan for surgery 05/16/23 iv ancef pain control ILSA resolved ?due to nsaids vs poor perfusion from cardizem and right heart failure acute hypoxic respiratory failured and acute right heart failure iv lasix vq scan negative elevated lfts ?Acute etoh hepatitis vs hepatic congestion, follow up ct abd, monitor labs persistent afib with rvr xarelto on hold for surgery, bridged wih lovenox toprol etoh dependence monitor ciwa obesity weight loss hld statin, fibrate full code reason for continued hospitalization: plan for surgery Time Spent With Patient Time: Total time managing care of this patient today ____ minutes. Quality Stroke Does the patient have a stroke diagnosis?: No VTE Prior VTE?: No VTE Risk Level:: Medical - moderate - high VTE Device Contraindication: N/A - Device Ordered VTE Drug Contraindication: Treatment Not Indicated
--- NOTE | 2023-05-15 09:07 | MHC.CLN ---
NUTRITION ADDED 2 GRAM SODIUM TO DIET ORDER DUE TO HX CHF.
[2023-05-15] MEDS: polyethylene glycoL 3350 17 GM POWD.PACK PO (09:43)
--- NOTE | 2023-05-15 11:33 | PM.PNCARD ---
Subjective Subjective Date of Service: 05/15/23 Principal diagnosis: left ankle fracture with ARF and CHF Interval history: Patient states he is feeling okay. Lying down comfortably in bed. He states that he was generally doing okay till few days ago when he started having some symptoms like dizziness. On 3 different occasions, he had dizzy feeling. To me, he states that he is generally active and does not have exertion symptoms like chest pain or shortness of breath. However, in the initial cardiology consultation, there is mention that patient can walk only about a block or so due to shortness of breath and that information was given by his . In the same notes, there is also mention of him walking 14 miles in early April on a business trip in [place]. Hence baseline exercise tolerance is somewhat confusing. Review of Systems Review of Systems Yes all other systems are reviewed and are negative Constitutional: Reports as per HPI and Reports no additional constitutional complaints Eyes: Reports as per HPI and Denies no additional eye complaints Denies system reviewed and no additional complaints, except as documented and Reports as per HPI Cardiovascular: Reports as per HPI, Reports no additional cardiovascular complaints, Denies acrocyanosis, Denies cool extremities, Denies chest pain, Denies leg edema, Denies lightheadedness, Denies palpitations and Denies dyspnea Respiratory: Reports as per HPI, Denies no additional respiratory complaints and Denies dyspnea Gastrointestinal: Reports as per HPI and Denies no additional gastrointestinal complaints Genitourinary: Reports no additional male genitourinary complaints and Reports as per HPI Musculoskeletal: Reports no additional musculoskeletal complaints and Reports as per HPI Skin/Breast: Reports system reviewed and no additional complaints, except as docu Reports system reviewed and no additional complaints, except as documented and Reports as per HPI Psychiatric: Reports no additional psychiatric complaints and Reports as per HPI Endocrine: Reports no additional endocrine complaints, Reports as per HPI and Denies palpitations Hematologic/Lymphatic: Reports no additional hematologic/lymphatic complaints and Reports as per HPI Allergic/Immunologic: Reports no additional allergic/immunologic complaints and Reports as per HPI Physical Exam Vital Signs: Last Vital Signs Temp 98.1 F 05/15/23 07:15 Pulse 99 05/15/23 07:15 Resp 20 05/15/23 07:15 BP 113/67 05/15/23 07:15 Pulse Ox 95 05/15/23 07:15 O2 Del Method Nasal Cannula 05/15/23 07:15 O2 Flow Rate 2 05/15/23 07:15 BMI result Body Mass Index 33.9 Const General: comfortable and no acute distress Orientation/consciousness: patient oriented x3 HEENT Other: Unremarkable Head: Yes normal to inspection Neck Neck: Yes normal visual inspection Chest Chest palpation & inspection: normal inspection of the chest Resp Auscultation: clear to auscultation bilaterally Cardio Palpation: normal PMI Heart sounds: S1 normal heart sound present, S2 normal heart sound present, no gallops, no murmurs and no rubs GI Palpation (GI): Soft to palpation Back/Spine/Pelvis Other: unremarkable Skin General skin exam: no rashes or lesions noted Neuro General: patient oriented x3 Extrem General: Yes normal to inspection Psych Mental Status: mental status grossly normal Objective Labs and Meds 05/15/23 06:14 05/15/23 06:14 Lab results: Laboratory Results - last 24 hr 05/15/23 06:14 WBC 9.3 RBC 3.93 L Hgb 14.2 Hct 42.1 MCV 107.1 H MCH 36.1 H MCHC 33.7 RDW 13.2 Plt Count 120 L MPV 11.0 Absolute Nucleated RBC 0.000 Nucleated RBC % (auto) 0.0 Sodium 135 Potassium 4.1 Chloride 94 L Carbon Dioxide 29 Anion Gap 16 BUN 26 H Creatinine 1.09 Estim Creat Clear Calc 83.1 Estimated GFR > 60 Fasting Glucose 115 H Calcium 9.1 Magnesium 1.7 Total Bilirubin 2.9 H Direct Bilirubin 1.6 H AST 39 H ALT 9 Alkaline Phosphatase 109 Total Protein 7.0 Albumin 3.4 L Imaging Radiologist's impression: Impressions Abdomen/Pelvis CT 05/13/23 11:31 IMPRESSION: Multiple fatty infiltration of the liver. Small gallstone. Bilateral renal perinephric fat stranding. Small lower abdominal aortic aneurysm measuring 3.2 cm. Recommend AAA follow-up every 3 years. Reference: J Am [facility]ana Radiol 2013; 10 (10): 789-794. Fleischner guidelines were followed. Pulmonary Perfusion Imaging 05/14/23 09:50 IMPRESSION: No evidence of perfusion defect to suspect any PE. Progress Note: A&P Assessment and plan (1) Persistent atrial fibrillation: Status: Acute (2) Acute right heart failure: Status: Acute (3) Nonrheumatic tricuspid (valve) insufficiency: Status: Acute (4) Preoperative cardiovascular examination: Status: Acute Plan Echocardiogram with LVEF 55-60%. Flattened septum suggestive of right ventricular pressure/volume overload. Severely increased right ventricular cavity size with moderate to severely depressed function. Severely dilated atria. Normal function bioprosthetic aortic valve. Severe tricuspid regurgitation. On telemetry, in atrial fibrillation in the 70s. Clinically, he does seem fairly compensated. Currently on IV diuretics. On beta-blockers and digoxin for rate control. Records requested from his data technical lead but not available yet. With regard to ankle surgery, tentatively planned for tomorrow. Due to significant right heart dysfunction, increased risk of perioperative cardiac complications including congestive heart failure. This was discussed with patient in detail. If there is no other reasonable non operative option, then may proceed accepting this risk. Time Spent With Patient Time: Total time managing care of this patient today ____ minutes. Progress Note: Quality Stroke Does the patient have a stroke diagnosis?: No Procedures Date of Service Date of Service: 05/15/23
--- NOTE | 2023-05-15 11:48 | CONS_ITS ---
DATE OF SERVICE: 05/13/2023 REASON FOR CONSULTATION: I was asked to see patient to assist in evaluation and management of patient's acute kidney injury as reflected by serum creatinine that went from 0.99 yesterday around noon time to 2.43 today. The patient states he has only voided once overnight, but denies any history of BPH or prostate or voiding problems. HISTORY OF PRESENT ILLNESS: In summary, the patient is a 68-year-old gentleman with a history of atrial fibrillation, maintained on Xarelto. He has a bovine aortic valve replacement done 5 years ago, followed by Dr. Thompson for his cardiac issues at [facility], who fell and has an open left ankle fracture. The patient does admit to taking both Advil and ibuprofen the past day since his fall and fracture. The patient is a bit vague about exactly what precipitated the falling episode. He was initially seen at [facility], but got frustrated, and so came here to this emergency room. As part of the workup at [facility], there is mention made that he had a CT of the head and neck. It is unclear whether he got IV contrast, but I suspect he may indeed have had IV contrast with that. Apparently, he has had occasional episodes of dizziness over the past week, but no falling episodes except for the one that caused the ankle fracture. He denies any chest pain or palpitations. No fever, sweats, or chills. He denies any history of gross hematuria, dysuria, or BPH symptoms. He is unaware of any kidney problems in the past. PAST MEDICAL HISTORY: As mentioned above. MEDICATIONS: His medications on admission are listed in the admitting notes and he is currently not on an ANGELI or an ARB. He is not on any routine diuretics. He did take both Advil and ibuprofen prior to the day of his admission. ALLERGIES: HE HAS NO KNOWN DRUG ALLERGIES. SOCIAL HISTORY: He is a nonsmoker, nondrinker. No illicit drug use. FAMILY HISTORY: Noncontributory. REVIEW OF SYSTEMS: As noted above. PHYSICAL EXAMINATION: VITAL SIGNS: Blood pressure 120/80, O2 saturation 96%. HEENT: Head is atraumatic and normocephalic. NECK: Supple. Mucous membranes are moist. LUNGS: Breath sounds bilaterally. CARDIAC: Regular rate and rhythm without rub. ABDOMEN: Soft. EXTREMITIES: Shows left leg wrapped. IMAGING DATA: He had a chest x-ray on admission, which showed evidence of pulmonary vascular congestion and there is mention made of question of a pleural effusion on the left side. He had a CAT scan of the abdomen and pelvis done this morning, the results of which are pending. IMPRESSION: A 68-year-old with history of heart failure, atrial fibrillation, bovine aortic valve, status post fall, heavy NSAID use in the past 24 hours, question of IV contrast exposure, and relatively severe acute kidney injury. 1. Acute kidney injury. Given his clinical presentation, the following differential diagnosis cause of acute kidney injury are as follows. 2. Renal hypoperfusion, accentuated by being on NSAIDs and the IV contrast all conspiring to decrease renal perfusion and causing tubular injury and acute tubular necrosis. 3. Acute interstitial nephritis from NSAID. This seems relatively rapid in onset and unlikely the culprit. 4. Obstructive uropathy despite the absence of benign prostatic hyperplasia symptoms in the past. 5. Rhabdomyolysis associated acute kidney injury as a possibility and we will check CPKs. 6. Prerenal azotemia due to cardiac decompensation. This is always a concern and we will need to monitor him closely. 7. Volume status. Chest x-ray showed some evidence of pulmonary vascular congestion. Ideally, we would like to give him some IV fluids to flush his kidneys but we will check with the hospital team and Cardiology to see whether he can tolerate some IV fluids. RECOMMENDATIONS: At this time include the following. 1. Urinalysis and spot urine studies. Bladder scan and if his postvoid residual is greater than 200, to place a Diaz. Check with hospitalist and Cardiology while giving some IV fluids. Get records from [facility] to see if he got IV contrast exposure. Avoid NSAIDs. Check CPKs. Monitor urine output and renal function closely. 2. Depending on his clinical course, he may need further evaluation. 3. I have also ordered a renal ultrasound despite having the CAT scan today, it is unclear whether it took cuts of the kidneys and bladder. MD RADHA Lakhani/SHANIQUA / [phone]
[2023-05-15] MEDS: Enoxaparin Sodium 120 MG/0.8 ML SYRINGE SUBCUT (12:58)
[2023-05-15] MEDS: Morphine Sulfate ER 15 MG TABLET.ER PO (12:58)
--- NOTE | 2023-05-15 15:27 | MHC.CM.PN ---
Patient scheduled for OR today ORIF L ankle. DP home with services.Patients will transport home.
[2023-05-15 15:39] VITALS: BP 124/67; PULSE 100; RESP 18; TEMP 36.7; O2SAT 93
[2023-05-15 19:59] VITALS: BP 135/82; PULSE 96; RESP 18; TEMP 36.2; O2SAT 95
[2023-05-15 22:30] VITALS: PULSE 102; O2SAT 96
[2023-05-16] VITALS (13 sets, daily range): BP systolic 113–143; BP diastolic 73–81; PULSE 94–111; RESP 12–20; TEMP 36.1–36.9; O2SAT 91–106; BMI 33.9
[2023-05-16] MEDS: Morphine Sulfate ER 15 MG TABLET.ER PO (01:46)
[2023-05-16] MEDS: HYDROmorphone HCl 1 MG/ML SYRINGE IVPUSH ×4 (03:35→21:47)
[2023-05-16] MEDS: ceFAZolin Sodium/Dextrose,Iso 2 GM/50 ML PIGGYBACK IV ×2 (04:55→19:37)
[2023-05-16 06:42] LABS: Hematocrit 42.5 % (42.0-52.0); Hemoglobin 14.5 g/dl (14.0-18.0); Mean Corpuscular HGB Conc 34.1 g/dl (31.0-36.0); Mean Corpuscular Hemoglobin 36.5 pg (27.0-33.0); Mean Corpuscular Volume 107.1 fL (80.0-98.0); Mean Platelet Volume 10.8 fL (9.4-12.4); Platelet Count 156 X10*3/uL (160-400); Red Blood Count 3.97 X10*6/uL (4.60-5.80); Red Cell Distribution Width 13.3 % (11.0-16.0); White Blood Count 9.2 X10*3/uL (4.8-10.8)
[2023-05-16 06:55] LABS: Anion Gap 18 (12-20); Blood Urea Nitrogen 21 mg/dL (9-16); Calcium 9.5 mg/dL (8.4-10.2); Carbon Dioxide 31 mmol/L (22-29); Chloride 93 mmol/L (96-108); Estimated Glomerular Filt Rate > 60; Glucose Fasting 147 mg/dL (60-99); Potassium 3.9 mmol/L (3.3-5.1); Sodium 138 mmol/L (135-145)
[2023-05-16] MEDS: Spironolactone 25 MG TABLET PO (07:56)
[2023-05-16] MEDS: Atorvastatin Calcium 80 MG TABLET PO (07:56)
[2023-05-16] MEDS: Fenofibrate 54 MG TABLET PO (07:56)
[2023-05-16] MEDS: 0.9 % Sodium Chloride Flush 3 ML SYRINGE IVFLUSH ×3 (07:56→19:40)
[2023-05-16] MEDS: Escitalopram Oxalate 10 MG TABLET PO (07:56)
[2023-05-16] MEDS: Docusate Sodium 100 MG CAPSULE PO (07:56)
[2023-05-16] MEDS: Magnesium Oxide 400 MG TABLET PO ×2 (07:56→20:14)
[2023-05-16] MEDS: Metoprolol Succinate ER 50 MG TAB.ER.24H PO (07:56)
[2023-05-16] MEDS: Fluticasone/Vilanterol 100/25 BLST.W.DEV 1 PUFF INHALE (08:02)
--- NOTE | 2023-05-16 09:33 | HO.PM.IMPN ---
Subjective Subjective Date of Service: 05/16/23 Interval History: improving Physical Exam Vital Signs: Vital Signs: Last Vital Signs Temp 98 F 05/16/23 06:42 Pulse 103 H 05/16/23 08:04 Resp 18 05/16/23 08:04 BP 143/81 H 05/16/23 06:42 Pulse Ox 93 05/16/23 06:42 O2 Del Method Room Air 05/16/23 06:42 O2 Flow Rate 2 05/15/23 19:59 BMI result Body Mass Index 33.9 Const: General: comfortable and no acute distress Orientation/consciousness: patient oriented x3 HEENT: Other: Unremarkable Head: Yes normal to inspection Neck: Neck: Yes normal visual inspection Chest: Chest palpation & inspection: normal inspection of the chest Resp: Auscultation: clear to auscultation bilaterally Cardio: Palpation: normal PMI Heart sounds: S1 normal heart sound present, S2 normal heart sound present, no gallops, no murmurs and no rubs GI: Palpation (GI): Soft to palpation Back/Spine/Pelvis: Other: unremarkable Skin: General skin exam: no rashes or lesions noted Neuro: General: patient oriented x3 Extrem: General: Yes normal to inspection Psych: Mental Status: mental status grossly normal Objective Data Active Medications Acetaminophen (Acetaminophen 325 Mg Tablet) 650 mg PO Q6H PRN PRN Reason: Pain, Mild (Pain Scale 1-3) Last Admin: 05/15/23 08:00 Dose: 650 mg Documented By: DARRIUS Atorvastatin Calcium (Atorvastatin Calcium 80 Mg Tablet) 80 mg PO DAILY [facility] Last Admin: 05/16/23 07:56 Dose: 80 mg Documented By: DARRIUS Digoxin (Digoxin 0.125 Mg Tablet) 0.125 mg PO Q2D [facility] Last Admin: 05/14/23 12:03 Dose: 0.125 mg Documented By: NICHELLE Docusate Sodium (Docusate Sodium 100 Mg Capsule) 100 mg PO DAILY PRN PRN Reason: Constipation Last Admin: 05/16/23 07:56 Dose: 100 mg Documented By: DARRIUS Enoxaparin Sodium (Enoxaparin Sodium 120 Mg/0.8 Ml Syringe) 120 mg 1 mg/kg (120 mg) SUBCUT Q12H [facility] Last Admin: 05/15/23 12:58 Dose: 120 mg Documented By: DARRIUS Escitalopram Oxalate (Escitalopram Oxalate 10 Mg Tablet) 10 mg PO DAILY [facility] Last Admin: 05/16/23 07:56 Dose: 10 mg Documented By: DARRIUS Fenofibrate (Fenofibrate 54 Mg Tablet) 54 mg PO DAILY [facility] Last Admin: 05/16/23 07:56 Dose: 54 mg Documented By: DARRIUS Fluticasone/Vilanterol (Fluticasone/Vilanterol 100/25 Blst.W.Dev) 1 puff INHALE RDAILY [facility] Last Admin: 05/16/23 08:02 Dose: 1 puff Documented By: BRESCROW Hydromorphone HCl (Hydromorphone Hcl 1 Mg/Ml Syringe) 1 mg IVPUSH Q3H PRN; Protocol PRN Reason: Pain, Severe (Pain Scale 7-10) Last Admin: 05/16/23 07:55 Dose: 1 mg Documented By: DARRIUS Cefazolin Sodium/Dextrose (Ancef) 2 gm in 50 mls @ 100 mls/hr IV Q8H [facility] Last Infusion: 05/16/23 05:29 Dose: Infused Documented By: LINCOLN Magnesium Oxide (Magnesium Oxide 400 Mg Tablet) 400 mg PO BID [facility] Last Admin: 05/16/23 07:56 Dose: 400 mg Documented By: DARRIUS Metoprolol Succinate (Metoprolol Succinate Er 50 Mg Tab.Er.24h) 50 mg PO DAILY [facility]; Protocol Last Admin: 05/16/23 07:56 Dose: 50 mg Documented By: DARRIUS Morphine Sulfate (Morphine Sulfate Er 15 Mg Tablet.Er) 15 mg PO Q12H [facility] Last Admin: 05/16/23 01:46 Dose: 15 mg Documented By: LINCOLN Ondansetron HCl (Ondansetron Hcl 4 Mg/2 Ml Vial) 4 mg IVPUSH Q8H PRN PRN Reason: Nausea and Vomiting Sodium Chloride (0.9 % Sodium Chloride Flush 3 Ml Syringe) 3 ml IVFLUSH QSHIFT [facility] Last Admin: 05/16/23 07:56 Dose: 3 ml Documented By: DARRIUS Spironolactone (Spironolactone 25 Mg Tablet) 25 mg PO DAILY [facility]; Protocol Last Admin: 10/17/23 07:56 Dose: 25 mg Documented By: DARRIUS Labs 05/16/23 05:50 05/16/23 05:50 Labs: Laboratory Results - last 24 hr 05/16/23 05:50 MCV 107.1 H MCH 36.5 H MCHC 34.1 RDW 13.3 Plt Count 156 L D MPV 10.8 Absolute Nucleated RBC 0.000 Nucleated RBC % (auto) 0.0 Anion Gap 18 Estim Creat Clear Calc 88.0 Estimated GFR > 60 Fasting Glucose 147 H Calcium 9.5 Assessment and Plan (1) Ankle fracture, left: Status: Acute Plan 68M PMH persistent atrial fibrillation on Xarelto, bioprosthetic aortic valve, hld, etoh dependence, obesity, presented with left ankle pain after falls left ankle open fracture plan for surgery today 05/16/23 iv ancef pain control ILSA resolved ?due to nsaids vs poor perfusion from cardizem and right heart failure acute hypoxic respiratory failure and acute right heart failure diuresed, now on room air vq scan negative elevated lfts ?etoh and non etoh fatty liver persistent afib with rvr xarelto on hold for surgery, bridged wih lovenox toprol, dig etoh dependence monitor ciwa obesity weight loss hld statin, fibrate full code reason for continued hospitalization: plan for surgery Time Spent With Patient Time: Total time managing care of this patient today ____ minutes. Quality Stroke Does the patient have a stroke diagnosis?: No VTE Prior VTE?: No VTE Risk Level:: Medical - moderate - high VTE Device Contraindication: N/A - Device Ordered VTE Drug Contraindication: Treatment Not Indicated
[2023-05-16] MEDS: Digoxin 0.125 MG TABLET PO (10:35)
[2023-05-16 12:46] LABS: Glucose, Whole Blood 126 mg/dL (60-115)
--- NOTE | 2023-05-16 13:15 | MHC.SHP ---
Pre-Procedural Eval Section A Date of Service: 05/16/23 Section B Chief Complaint: Open fracture of left ankle, syncope, Afib Details of Present Illness: left ankle fracture Relevant Family History (Specify if Yes): No Relevant Social History: None Present Medications: see Short Stay Collaborative assessment Medical History: Significant History History of Previous Operations: No relevant previous surgery Allergies: Allergies Allergy/AdvReac Type Severity Reaction Status Date / Time diltiazem AdvReac Intermediate acute Verified 05/14/23 11:53 kidney injury Review of Systems Sugical H&P ROS: Negative: Constitution, Cardiovascular, Respiratory, Neurological, Psychiatric, Hem-Onc, Allergic/Immunologic, Gastrointestinal, Genitourinary, Integumentary, Endocrine and Eyes/Ears/Nose/Throat and Yes, Specify: Musculoskeletal (left ankle pain) Exam Surgical H&P Exam: Normal: HEENT, Normal: Heart, Normal: Lungs, Normal: Abdomen and Normal: Skin and Significant Findings: Extremities (splint let ankle. toes wwp) Plan Diagnosis/Plan: Change I have reviewed the history and physical and performed a pertinent physical examination on my patient. No changes have occurred unless specified. Operative fixation left ankle. I discussed the risks benefits and alternatives including but not limited to the risk of pain, infection, stiffness, need for further surgery as well as potential medical complications such as blood clots, pulmonary embolism and cardiac complications. Time Spent With Patient Time: Total time managing care of this patient today ____ minutes.
--- NOTE | 2023-05-16 15:12 | HO.ANESPROP2 ---
HPI - Anesthesia Eval Consult details Narrative: 68-year-old male with ankle fracture presenting for [facility] Active Problems Active Problems: All Active Problems (Updated 05/16/23 @ 12:52 by Vale Man RN) Nonrheumatic tricuspid (valve) insufficiency (Acute) Preoperative cardiovascular examination (Acute) Acute right heart failure (Acute) Persistent atrial fibrillation (Acute) Congestive heart failure (Acute) Dizziness (Acute) Ankle fracture, left (Acute) Open ankle fracture (Acute) Past Medical History Medical History Afib Sleep apnea Family History Family history of problems with anesthesia: No Surgical History Surgical History (Updated 05/16/23 @ 15:13 by Sushil Miranda MD) Status post aortic valve replacement History of Problems with Anesthesia: No Social History Social History Household Members: Spouse Housing: House Do you presently have visiting nurse or other home services: No Patient Tobacco Use Status: Former Tobacco user Quit Date: 05/02-05/05 service: No Meds Allergies Allergy/AdvReac Type Severity Reaction Status Date / Time diltiazem AdvReac Intermediate acute Verified 05/14/23 11:53 kidney injury Active Medications: Current Medications Acetaminophen (Acetaminophen 325 Mg Tablet) 650 mg PO Q6H PRN PRN Reason: Pain, Mild (Pain Scale 1-3) Last Admin: 05/15/23 08:00 Dose: 650 mg Atorvastatin Calcium (Atorvastatin Calcium 80 Mg Tablet) 80 mg PO DAILY [facility] Last Admin: 05/16/23 07:56 Dose: 80 mg Digoxin (Digoxin 0.125 Mg Tablet) 0.125 mg PO Q2D [facility] Last Admin: 05/16/23 10:35 Dose: 0.125 mg Docusate Sodium (Docusate Sodium 100 Mg Capsule) 100 mg PO DAILY PRN PRN Reason: Constipation Last Admin: 05/16/23 07:56 Dose: 100 mg Enoxaparin Sodium (Enoxaparin Sodium 120 Mg/0.8 Ml Syringe) 120 mg 1 mg/kg (120 mg) SUBCUT Q12H [facility] Last Admin: 05/15/23 12:58 Dose: 120 mg Escitalopram Oxalate (Escitalopram Oxalate 10 Mg Tablet) 10 mg PO DAILY [facility] Last Admin: 05/16/23 07:56 Dose: 10 mg Fenofibrate (Fenofibrate 54 Mg Tablet) 54 mg PO DAILY [facility] Last Admin: 05/16/23 07:56 Dose: 54 mg Fluticasone/Vilanterol (Fluticasone/Vilanterol 100/25 Blst.W.Dev) 1 puff INHALE RDAILY [facility] Last Admin: 05/16/23 08:02 Dose: 1 puff Hydromorphone HCl (Hydromorphone Hcl 1 Mg/Ml Syringe) 1 mg IVPUSH Q3H PRN; Protocol PRN Reason: Pain, Severe (Pain Scale 7-10) Last Admin: 05/16/23 11:12 Dose: 1 mg Cefazolin Sodium/Dextrose (Ancef) 2 gm in 50 mls @ 100 mls/hr IV Q8H [facility] Last Infusion: 05/16/23 05:29 Dose: Infused Magnesium Oxide (Magnesium Oxide 400 Mg Tablet) 400 mg PO BID [facility] Last Admin: 05/16/23 07:56 Dose: 400 mg Metoprolol Succinate (Metoprolol Succinate Er 50 Mg Tab.Er.24h) 50 mg PO DAILY [facility]; Protocol Last Admin: 05/16/23 07:56 Dose: 50 mg Morphine Sulfate (Morphine Sulfate Er 15 Mg Tablet.Er) 15 mg PO Q12H [facility] Last Admin: 05/16/23 14:33 Dose: Not Given Ondansetron HCl (Ondansetron Hcl 4 Mg/2 Ml Vial) 4 mg IVPUSH Q8H PRN PRN Reason: Nausea and Vomiting Ondansetron HCl (Ondansetron Hcl 4 Mg/2 Ml Vial) 4 mg IVPUSH ONCE PRN PRN Reason: Nausea and Vomiting Oxycodone HCl (Oxycodone Hcl Immed Release 5 Mg Tablet) 5 mg PO ONCE PRN PRN Reason: Pain, Severe (Pain Scale 7-10) Sodium Chloride (0.9 % Sodium Chloride Flush 3 Ml Syringe) 3 ml IVFLUSH QSHIFT [facility] Last Admin: 05/16/23 07:56 Dose: 3 ml Spironolactone (Spironolactone 25 Mg Tablet) 25 mg PO DAILY [facility]; Protocol Last Admin: 05/16/23 07:56 Dose: 25 mg Home Medications Medication Instructions Recorded Confirmed Last Taken Type aspirin 81 mg tablet,delayed 81 mg PO DAILY 05/12/23 05/12/23 Unknown History release citalopram 20 mg tablet 20 mg PO DAILY 05/12/23 05/12/23 Unknown History fenofibrate 54 mg tablet 54 mg PO DAILY 05/12/23 05/12/23 Unknown History fluticasone furoate 100 1 inh inhalation DAILY 05/12/23 05/12/23 Unknown History mcg-vilanterol 25 mcg/dose inhalation powder (Breo Ellipta) magnesium glycinate 100 mg tablet 500 mg PO DAILY 05/12/23 05/12/23 Unknown History magnesium oxide 400 mg PO BID 05/12/23 05/12/23 Unknown History metoprolol succinate 100 mg 100 mg PO BID 05/12/23 05/12/23 Unknown History tablet,extended release 24 hr omega [id number]-fish oil 1,000 mg 2 cap PO DAILY 05/12/23 05/12/23 Unknown History (120 mg-180 mg) capsule (Fish Oil) omeprazole 20 mg capsule,delayed 20 mg PO Q2D@0630 05/12/23 05/12/23 Unknown History release rivaroxaban 20 mg tablet (Xarelto) 20 mg PO DAILY@1700 05/12/23 05/12/23 Unknown History rosuvastatin 20 mg tablet 20 mg PO DAILY 05/12/23 05/12/23 Unknown History Exam Exam Date and Time: May 16, 2023 151 Height,Weight and Vital Signs: Height 6 ft Weight 249 lb 15.714 oz Last Vital Signs Temp 97.5 F 05/16/23 14:42 Pulse 94 05/16/23 14:57 Resp 12 05/16/23 14:57 BP 125/75 05/16/23 14:57 Pulse Ox 93 05/16/23 14:57 O2 Del Method Nasal Cannula with Capnography 05/16/23 14:57 O2 Flow Rate 4 05/16/23 14:57 Pertinent Lab Results Pertinent Lab Results: Laboratory Tests 05/12/23 05/12/23 05/13/23 12:49 17:53 08:23 WBC 7.0 12.3 H RBC 4.17 L 4.09 L Hgb 15.1 14.9 Hct 44.4 45.4 MCV 106.5 H 111.0 H MCH 36.2 H 36.4 H MCHC 34.0 32.8 RDW 13.5 13.7 Plt Count 117 L 121 L MPV 10.6 11.2 Immature Gran % (Auto) 0.4 Neut % (Auto) 65.1 Lymph % (Auto) 17.5 L Hubbard % (Auto) 13.0 H Eos % (Auto) 3.4 Baso % (Auto) 0.6 Lymph # (Auto) 1.2 Hubbard # (Auto) 0.9 Eos # (Auto) 0.2 Baso # (Auto) 0.0 Abs Immat Gran (auto) 0.03 Absolute Neuts (auto) 4.6 Absolute Nucleated RBC 0.000 0.000 Nucleated RBC % (auto) 0.0 0.0 PT 18.7 H INR 1.5 H APTT 41.4 H Sodium 142 137 Potassium 4.2 5.1 D Chloride 103 99 Carbon Dioxide 26 24 Anion Gap 17 19 BUN 20 H 31 H Creatinine 0.99 2.43 H Estim Creat Clear Calc 91.5 37.3 Estimated GFR > 60 27 POC Glucose 138 H Random Glucose 151 H 140 H Fasting Glucose Calcium 9.2 8.7 Magnesium 1.7 1.9 Total Bilirubin 1.4 H 2.1 H Direct Bilirubin 1.2 H AST 42 H 43 H ALT 27 23 Alkaline Phosphatase 111 97 Total Creatine Kinase 187 H B-Natriuretic Peptide Total Protein 7.3 7.5 Albumin 3.7 3.8 TSH 2.11 Urine Color Urine Appearance Urine pH Ur Specific [place] Urine Protein Urine Glucose (UA) Urine Ketones Urine Blood Urine Nitrite Ur Leukocyte Esterase Urine RBC Urine WBC Ur Squamous Epith Cells Calcium Oxalate Crystal Urine Bacteria Hyaline Casts Granular Casts U Random Total Protein Ur Random Sodium Urine Creatinine 05/13/23 05/13/23 05/13/23 08:24 14:42 14:43 WBC RBC Hgb Hct MCV MCH MCHC RDW Plt Count MPV Immature Gran % (Auto) Neut % (Auto) Lymph % (Auto) Hubbard % (Auto) Eos % (Auto) Baso % (Auto) Lymph # (Auto) Hubbard # (Auto) Eos # (Auto) Baso # (Auto) Abs Immat Gran (auto) Absolute Neuts (auto) Absolute Nucleated RBC Nucleated RBC % (auto) PT INR APTT Sodium Potassium Chloride Carbon Dioxide Anion Gap BUN Creatinine Estim Creat Clear Calc Estimated GFR POC Glucose Random Glucose Fasting Glucose Calcium Magnesium Total Bilirubin Direct Bilirubin AST ALT Alkaline Phosphatase Total Creatine Kinase B-Natriuretic Peptide 501 H Total Protein Albumin TSH Urine Color Dark Yellow Urine Appearance Cloudy Urine pH 5.0 Ur Specific [place] 1.025 Urine Protein 100 (2+) H Urine Glucose (UA) Negative Urine Ketones Negative Urine Blood Negative Urine Nitrite Negative Ur Leukocyte Esterase Trace H Urine RBC 0-2 Urine WBC 0-5 Ur Squamous Epith Cells 6-10 Calcium Oxalate Crystal Present Urine Bacteria None Seen Hyaline Casts 3-5 Granular Casts Present U Random Total Protein 131 H Ur Random Sodium 38.0 Urine Creatinine 266.96 05/13/23 05/14/23 05/15/23 19:31 06:18 06:14 WBC 9.5 9.3 RBC 3.78 L 3.93 L Hgb 13.7 L 14.2 Hct 41.2 L 42.1 MCV 109.0 H 107.1 H MCH 36.2 H 36.1 H MCHC 33.3 33.7 RDW 13.3 13.2 Plt Count 97 L 120 L MPV 11.0 11.0 Immature Gran % (Auto) Neut % (Auto) Lymph % (Auto) Hubbard % (Auto) Eos % (Auto) Baso % (Auto) Lymph # (Auto) Hubbard # (Auto) Eos # (Auto) Baso # (Auto) Abs Immat Gran (auto) Absolute Neuts (auto) Absolute Nucleated RBC 0.000 0.000 Nucleated RBC % (auto) 0.0 0.0 PT 17.2 H INR 1.4 H APTT Sodium 137 135 135 Potassium 5.0 4.4 4.1 Chloride 97 98 94 L Carbon Dioxide 26 26 29 Anion Gap 19 15 16 BUN 36 H 33 H 26 H Creatinine 2.15 H 1.44 H 1.09 Estim Creat Clear Calc 42.1 62.9 83.1 Estimated GFR 31 49 > 60 POC Glucose Random Glucose Fasting Glucose 113 H 115 H Calcium 8.9 9.1 Magnesium 1.9 1.7 Total Bilirubin 2.2 H 2.9 H Direct Bilirubin 1.3 H 1.6 H AST 37 39 H ALT 14 9 Alkaline Phosphatase 80 109 Total Creatine Kinase B-Natriuretic Peptide Total Protein 6.9 7.0 Albumin 3.5 3.4 L TSH Urine Color Urine Appearance Urine pH Ur Specific [place] Urine Protein Urine Glucose (UA) Urine Ketones Urine Blood Urine Nitrite Ur Leukocyte Esterase Urine RBC Urine WBC Ur Squamous Epith Cells Calcium Oxalate Crystal Urine Bacteria Hyaline Casts Granular Casts U Random Total Protein Ur Random Sodium Urine Creatinine 05/16/23 05/16/23 05:50 12:41 WBC 9.2 RBC 3.97 L Hgb 14.5 Hct 42.5 MCV 107.1 H MCH 36.5 H MCHC 34.1 RDW 13.3 Plt Count 156 L D MPV 10.8 Immature Gran % (Auto) Neut % (Auto) Lymph % (Auto) Hubbard % (Auto) Eos % (Auto) Baso % (Auto) Lymph # (Auto) Hubbard # (Auto) Eos # (Auto) Baso # (Auto) Abs Immat Gran (auto) Absolute Neuts (auto) Absolute Nucleated RBC 0.000 Nucleated RBC % (auto) 0.0 PT INR APTT Sodium 138 Potassium 3.9 Chloride 93 L Carbon Dioxide 31 H Anion Gap 18 BUN 21 H Creatinine 1.03 Estim Creat Clear Calc 88.0 Estimated GFR > 60 POC Glucose 126 H Random Glucose Fasting Glucose 147 H Calcium 9.5 Magnesium Total Bilirubin Direct Bilirubin AST ALT Alkaline Phosphatase Total Creatine Kinase B-Natriuretic Peptide Total Protein Albumin TSH Urine Color Urine Appearance Urine pH Ur Specific [place] Urine Protein Urine Glucose (UA) Urine Ketones Urine Blood Urine Nitrite Ur Leukocyte Esterase Urine RBC Urine WBC Ur Squamous Epith Cells Calcium Oxalate Crystal Urine Bacteria Hyaline Casts Granular Casts U Random Total Protein Ur Random Sodium Urine Creatinine Airway Mallampati Class: III TM Dist: >3cm Neck ROM: Full Assessment and Plan Assessment Anesthesia Assessment: Anesthesia Plan Discussed Final Anesthetic Review Family History of Problems with Anesthesia: No History of Problems with Anesthesia: No NPO: Yes ASA Class: III Final Preanesthetic Review: No Changes in Pt Med Stat, Meds/Allgs Chart Reviewed, Consent Obtained/Reviewed and Anes Risks/Benef Reviewed Patient Risk: Intermediate Procedure Risk: Low Anesthetic Plan Anesthetic Plan: GA and Regional Block Disposition: Standard PACU
[2023-05-16] MEDS: Milk of Magnesia 30 ML ORAL.SUSP PO (18:05)
[2023-05-17] VITALS (12 sets, daily range): BP systolic 117–187; BP diastolic 69–123; PULSE 88–140; RESP 16–26; TEMP 36–36.7; O2SAT 92–97
[2023-05-17] MEDS: Acetaminophen 325 MG TABLET 650 MG PO (00:04)
[2023-05-17] MEDS: Morphine Sulfate ER 15 MG TABLET.ER PO ×2 (00:55→12:47)
[2023-05-17] MEDS: ceFAZolin Sodium/Dextrose,Iso 2 GM/50 ML PIGGYBACK IV ×3 (03:48→20:29)
[2023-05-17] MEDS: HYDROmorphone HCl 1 MG/ML SYRINGE IVPUSH ×2 (05:12→07:57)
[2023-05-17 06:47] LABS: Hematocrit 42.4 % (42.0-52.0); Hemoglobin 14.3 g/dl (14.0-18.0); Mean Corpuscular HGB Conc 33.7 g/dl (31.0-36.0); Mean Corpuscular Hemoglobin 35.8 pg (27.0-33.0); Mean Platelet Volume 10.4 fL (9.4-12.4); Platelet Count 168 X10*3/uL (160-400); Red Cell Distribution Width 13.2 % (11.0-16.0); White Blood Count 10.8 X10*3/uL (4.8-10.8)
[2023-05-17 06:55] LABS: Alanine Aminotransferase 7 U/L (0-40); Albumin Level 3.4 g/dL (3.5-5.0); Alkaline Phosphatase 118 U/L (39-117); Anion Gap 15 (12-20); Aspartate Amino Transferase 38 U/L (5-37); Bilirubin Direct 2.2 mg/dL (0.0-0.5); Bilirubin Total 3.3 mg/dL (0.0-1.0); Blood Urea Nitrogen 20 mg/dL (9-16); Calcium 9.6 mg/dL (8.4-10.2); Carbon Dioxide 32 mmol/L (22-29); Chloride 92 mmol/L (96-108); Creatinine Clr Calc Pharmacy 90.6; Estimated Glomerular Filt Rate > 60; Glucose Fasting 129 mg/dL (60-99); Potassium 4.1 mmol/L (3.3-5.1); Sodium 135 mmol/L (135-145); Total Protein 7.4 g/dL (6.5-8.0)
[2023-05-17] MEDS: Escitalopram Oxalate 10 MG TABLET PO (07:55)
[2023-05-17] MEDS: Fenofibrate 54 MG TABLET PO (07:55)
--- NOTE | 2023-05-17 07:55 | PM.PNORT ---
Subjective Subjective Date of Service: 05/17/23 Principal diagnosis: left ankle fracture with ARF and CHF Interval history: POD1 s/p Left ankle ORIF Patient is resting in bed comfortably No overnight events Pain is managed No additional complaints Physical Exam Vital Signs: Vital Signs: Last Vital Signs Temp 96.8 F 05/17/23 07:39 Pulse 102 H 05/17/23 07:39 Resp 16 05/17/23 07:39 BP 125/72 05/17/23 07:39 Pulse Ox 97 05/17/23 07:39 O2 Del Method Room Air 05/17/23 07:39 O2 Flow Rate 2 05/16/23 16:46 BMI result Body Mass Index 33.9 Const: General: cooperative, healthy appearing and no acute distress Resp: Effort & Inspection: normal respiratory effort and able to speak in complete sentences Cardio: Rate: regular rate Peripheral pulses: Peripheral pulses 2+ throughout GI: Palpation (GI): Soft to palpation Skin: Lesions: no lesions Rashes: no rashes Extrem: Other: Left Ankle splint is c/d/i. Able to move all digits. Sensation intact. capillary refill is brisk. Procedures Date of Service Date of Service: 05/17/23 Progress Note: A&P Assessment and plan (1) Ankle fracture, left: Status: Acute Assessment and Plan: Continue pain mgmnt Resume Xerelto 48hrs post op begin PT for left ankle ORIF - NWB Dispo planning-Pending PT eval, pain mgmnt, medical clearance for d/c (2) Acute right heart failure: Status: Acute (3) Persistent atrial fibrillation: Status: Acute (4) Congestive heart failure: Status: Acute Time Spent With Patient Time: Total time managing care of this patient today ____ minutes. Quality Stroke Does the patient have a stroke diagnosis?: No VTE Prior VTE?: No VTE Risk Level:: Medical - moderate - high VTE Device Contraindication: N/A - Device Ordered VTE Drug Contraindication: Treatment Not Indicated
[2023-05-17] MEDS: Magnesium Oxide 400 MG TABLET PO (07:56)
[2023-05-17] MEDS: Docusate Sodium 100 MG CAPSULE PO (07:56)
[2023-05-17] MEDS: Atorvastatin Calcium 80 MG TABLET PO (07:56)
[2023-05-17] MEDS: Spironolactone 25 MG TABLET PO (07:56)
[2023-05-17] MEDS: Metoprolol Succinate ER 50 MG TAB.ER.24H PO (07:57)
[2023-05-17] MEDS: 0.9 % Sodium Chloride Flush 3 ML SYRINGE IVFLUSH ×3 (07:58→20:29)
[2023-05-17] MEDS: Fluticasone/Vilanterol 100/25 BLST.W.DEV 1 PUFF INHALE (08:22)
--- NOTE | 2023-05-17 09:20 | HO.POSTANES ---
Post Anesthesia Evaluation Post Anesthesia Evaluation Date of Service: 05/17/23 Vital Signs: Vital Signs Temp Pulse Resp BP Pulse Ox O2 Del Method 05/17/23 08:56 102 H 05/17/23 08:22 102 H 18 05/17/23 07:57 18 05/17/23 07:39 96.8 F 102 H 16 125/72 97 Room Air 05/17/23 03:14 97.1 F 97 18 117/69 96 CPAP 05/17/23 00:48 97.0 F 97 18 139/81 96 CPAP 05/16/23 22:36 18 Anesthesia: Nerve Block and General LMA Mental Status: Awake Pain Control: Satisfactory Nausea/Vomiting: None Hydration: Adequate Anesthesia-Related Issues: No Anes. Related Issues
--- NOTE | 2023-05-17 09:48 | P.PNIM_ITS ---
Subjective Subjective Date of Service: 05/17/23 Interval History: improving Physical Exam 2 Vital Signs: Vital Signs: Last Vital Signs Temp 96.8 F 05/17/23 07:39 Pulse 102 H 05/17/23 08:56 Resp 18 05/17/23 08:22 BP 125/72 05/17/23 07:39 Pulse Ox 97 05/17/23 07:39 O2 Del Method Room Air 05/17/23 07:39 O2 Flow Rate 2 05/16/23 16:46 BMI result Body Mass Index 33.9 Const: General: cooperative, healthy appearing and no acute distress Resp: Effort & Inspection: normal respiratory effort and able to speak in complete sentences Cardio: Rate: regular rate Peripheral pulses: Peripheral pulses 2+ throughout GI: Palpation (GI): Soft to palpation Skin: Lesions: no lesions Rashes: no rashes Extrem: Other: Left Ankle splint is c/d/i. Able to move all digits. Sensation intact. capillary refill is brisk. Objective Data Active Medications Acetaminophen (Acetaminophen 325 Mg Tablet) 650 mg PO Q6H PRN PRN Reason: Pain, Mild (Pain Scale 1-3) Last Admin: 05/17/23 00:04 Dose: 650 mg Documented By: LINCOLN Atorvastatin Calcium (Atorvastatin Calcium 80 Mg Tablet) 80 mg PO DAILY [facility] Last Admin: 05/17/23 07:56 Dose: 80 mg Documented By: ANNE Digoxin (Digoxin 0.125 Mg Tablet) 0.125 mg PO Q2D [facility] Last Admin: 05/16/23 10:35 Dose: 0.125 mg Documented By: DARRIUS Docusate Sodium (Docusate Sodium 100 Mg Capsule) 100 mg PO DAILY PRN PRN Reason: Constipation Last Admin: 05/17/23 07:56 Dose: 100 mg Documented By: ANNE Escitalopram Oxalate (Escitalopram Oxalate 10 Mg Tablet) 10 mg PO DAILY [facility] Last Admin: 05/17/23 07:55 Dose: 10 mg Documented By: ANNE Fenofibrate (Fenofibrate 54 Mg Tablet) 54 mg PO DAILY [facility] Last Admin: 05/17/23 07:55 Dose: 54 mg Documented By: ANNE Fluticasone/Vilanterol (Fluticasone/Vilanterol 100/25 Blst.W.Dev) 1 puff INHALE RDAILY [facility] Last Admin: 05/17/23 08:22 Dose: 1 puff Documented By: NAHOMI Hydromorphone HCl (Hydromorphone Hcl 1 Mg/Ml Syringe) 1 mg IVPUSH Q3H PRN; Protocol PRN Reason: Pain, Severe (Pain Scale 7-10) Last Admin: 05/17/23 07:57 Dose: 1 mg Documented By: ANNE Cefazolin Sodium/Dextrose (Ancef) 2 gm in 50 mls @ 100 mls/hr IV Q8H [facility] Last Infusion: 05/17/23 04:18 Dose: Infused Documented By: LINCOLN Magnesium Oxide (Magnesium Oxide 400 Mg Tablet) 400 mg PO BID [facility] Last Admin: 05/17/23 07:56 Dose: 400 mg Documented By: ANNE Metoprolol Succinate (Metoprolol Succinate Er 50 Mg Tab.Er.24h) 50 mg PO DAILY [facility]; Protocol Last Admin: 05/17/23 07:57 Dose: 50 mg Documented By: ANNE Morphine Sulfate (Morphine Sulfate Er 15 Mg Tablet.Er) 15 mg PO Q12H [facility] Last Admin: 05/17/23 00:55 Dose: 15 mg Documented By: LINCOLN Ondansetron HCl (Ondansetron Hcl 4 Mg/2 Ml Vial) 4 mg IVPUSH Q8H PRN PRN Reason: Nausea and Vomiting Rivaroxaban (Rivaroxaban 20 Mg Tablet) 20 mg PO DAILY@1700 JOEL Sodium Chloride (0.9 % Sodium Chloride Flush 3 Ml Syringe) 3 ml IVFLUSH QSHIFT [facility] Last Admin: 05/17/23 07:58 Dose: 3 ml Documented By: ANNE Spironolactone (Spironolactone 25 Mg Tablet) 25 mg PO DAILY [facility]; Protocol Last Admin: 05/17/23 07:56 Dose: 25 mg Documented By: ANNE Labs 05/17/23 05:52 05/17/23 05:52 Labs: Laboratory Results - last 24 hr 05/16/23 05/17/23 12:41 05:52 MCV 106.0 H MCH 35.8 H MCHC 33.7 RDW 13.2 Plt Count 168 MPV 10.4 Absolute Nucleated RBC 0.000 Nucleated RBC % (auto) 0.0 Anion Gap 15 Estim Creat Clear Calc 90.6 Estimated GFR > 60 POC Glucose 126 H Fasting Glucose 129 H Calcium 9.6 Total Bilirubin 3.3 H Direct Bilirubin 2.2 H AST 38 H ALT 7 Alkaline Phosphatase 118 H Total Protein 7.4 Albumin 3.4 L Assessment and Plan (1) Ankle fracture, left: Status: Acute Plan 68M PMH persistent atrial fibrillation on Xarelto, bioprosthetic aortic valve, hld, etoh dependence, obesity, presented with left ankle pain after falls left ankle open fracture pod1 iv ancef pain control NWB RLE dispo - patient would like to go home, but might need SNF, to be determined ILSA resolved ?due to nsaids vs poor perfusion from cardizem and right heart failure acute hypoxic respiratory failure and acute right heart failure diuresed, now on room air vq scan negative possible due to history of left sided heart failure and more chronic, though not found on previous echos elevated lfts ?etoh and non etoh fatty liver outpatient follow up persistent afib with rvr xarelto on hold due to surgery, restart 48hr postop toprol, dig etoh dependence monitor ciwa obesity weight loss hld statin, fibrate full code reason for continued hospitalization: monitor postop Time Spent With Patient Time: Total time managing care of this patient today ____ minutes. Quality Stroke Does the patient have a stroke diagnosis?: No VTE Prior VTE?: No VTE Risk Level:: Medical - moderate - high VTE Device Contraindication: N/A - Device Ordered VTE Drug Contraindication: Treatment Not Indicated
--- NOTE | 2023-05-17 15:22 | MHC.CM.PN ---
Met with Pt and to discuss DP. The patient has been evaluated by PT and OT. Therapy recommends ACUTE rehab. Pt preferrs to rehab at home. [facility] is following. A clinical update has been sent to the agency.
--- NOTE | 2023-05-17 15:55 | P.BOP_ITS ---
Brief Operative Note Date of Service: 05/16/23 Pre-op diagnosis: left lateral malleolus fracture Post-op diagnosis: same Procedure: ORIF left lateral mal Implants: harsha Surgeon: Kyler Olvia MD Anesthesia: GETA and regional Was an [facility] used for this Procedure?: Yes [facility]: Rita Donaldson Estimated blood loss (mL): 25 Tourniquet time (min): 30 IV fluids (mL): 700 Pathology: none sent Condition: stable Disposition: PACU
[2023-05-17] MEDS: polyethylene glycoL 3350 17 GM POWD.PACK PO (16:47)
[2023-05-17] MEDS: LORazepam 2 MG/ML VIAL IVPUSH (16:47)
--- NOTE | 2023-05-17 17:48 | ECG_ITS ---
Test Reason : CP Blood Pressure : / mmHG Vent. Rate : 143 BPM Atrial Rate : 000 BPM P-R Int : 000 ms QRS Dur : 090 ms QT Int : 318 ms P-R-T Axes : 000 044 227 degrees QTc Int : 490 ms Atrial fibrillation with rapid ventricular response RSR' or QR pattern in V1 suggests right ventricular conduction delay Nonspecific ST abnormality Lateral leads Abnormal ECG When compared with ECG of 12-MAY-2023 18:00, ST more depressed Lateral leads T wave inversion now evident in Septal leads Referred By: Robert Crum Electronically Signed By:DELMER MITCHELL MD
[2023-05-17] MEDS: LORazepam 2 MG/ML VIAL 1 MG IVPUSH (18:04)
[2023-05-17] MEDS: Metoprolol Tartrate 5 MG/5 ML VIAL IVPUSH ×2 (18:04→18:48)
[2023-05-17] MEDS: PHENobarbitaL sodium 130 MG/ML IM ONCE 310 MG IM (18:23)
[2023-05-17 18:34] LABS: Glucose, Whole Blood 154 mg/dL (60-115)
--- NOTE | 2023-05-17 18:41 | PM.EVENT ---
Event Note Date of Service: 05/17/23 Event Note: Called to see patient approximately 1800 for extreme diaphoresis confusion and tachycardia. EKG done demonstrates AFib with a rapid ventricular response from 140-150. Clinical presentation highly suggestive of alcohol withdrawal. Given 1mg of Ativan x2 with limited effect. Phenobarb protocol initiated. Lopressor given of for rapid ventricular response; 5 mg x 2. If no response will likely need Cardizem drip. Call placed to who is unclear at the amount of alcohol he drinks; away on business the last 2 weeks so she is unaware of what he did a while he was away. One-to-one sitter ordered. Further plans based on clinical course Time Spent With Patient Time: Total time managing care of this patient today ____ minutes.
--- NOTE | 2023-05-17 19:51 | PC.NURSE ---
Pt. a little anxious, at bedside asking for bowel regimen. Dr. Crum notified of pt. mild anxiety, IV Ativan ordered. Pt. became more diaphoretix, increase anxiety, elevated BP and HR, confused, Dr. Sam at bedside, EKG done IV Ativan ordered, IV Metoprolol, IM Phenorb. with good effect. Pt. on Tele monitor.
[2023-05-17] MEDS: PHENobarbitaL sodium 130 MG/ML VIAL IM Q3Hx2 230 MG IM (20:26)
[2023-05-18] VITALS (11 sets, daily range): BP systolic 121–157; BP diastolic 63–95; PULSE 68–135; RESP 18–24; TEMP 36.1–37.1; O2SAT 92–98
[2023-05-18] MEDS: OLANZapine 10 MG VIAL IM (00:26)
[2023-05-18] MEDS: PHENobarbitaL sodium 130 MG/ML VIAL IM Q3Hx2 230 MG IM (01:10)
[2023-05-18] MEDS: ceFAZolin Sodium/Dextrose,Iso 2 GM/50 ML PIGGYBACK IV ×2 (04:05→12:59)
[2023-05-18 06:27] LABS: Hematocrit 45.9 % (42.0-52.0); Hemoglobin 15.2 g/dl (14.0-18.0); Mean Corpuscular HGB Conc 33.1 g/dl (31.0-36.0); Mean Corpuscular Hemoglobin 35.7 pg (27.0-33.0); Mean Corpuscular Volume 107.7 fL (80.0-98.0); Mean Platelet Volume 10.8 fL (9.4-12.4); Platelet Count 195 X10*3/uL (160-400); Red Blood Count 4.26 X10*6/uL (4.60-5.80); Red Cell Distribution Width 13.2 % (11.0-16.0)
[2023-05-18 06:43] LABS: Alanine Aminotransferase 10 U/L (0-40); Albumin Level 3.5 g/dL (3.5-5.0); Alkaline Phosphatase 139 U/L (39-117); Anion Gap 17 (12-20); Aspartate Amino Transferase 52 U/L (5-37); Bilirubin Direct 1.6 mg/dL (0.0-0.5); Bilirubin Total 2.9 mg/dL (0.0-1.0); Blood Urea Nitrogen 22 mg/dL (9-16); Calcium 10.4 mg/dL (8.4-10.2); Carbon Dioxide 31 mmol/L (22-29); Chloride 93 mmol/L (96-108); Creatinine Clr Calc Pharmacy 91.5; Estimated Glomerular Filt Rate > 60; Glucose Fasting 121 mg/dL (60-99); Magnesium 1.9 mg/dL (1.6-2.6); Potassium 3.9 mmol/L (3.3-5.1); Sodium 137 mmol/L (135-145); Total Protein 8.3 g/dL (6.5-8.0)
[2023-05-18] MEDS: Spironolactone 25 MG TABLET PO (07:53)
[2023-05-18] MEDS: Atorvastatin Calcium 80 MG TABLET PO (07:53)
[2023-05-18] MEDS: PHENobarbitaL 30 MG TABLET 60 MG PO ×2 (07:53→21:16)
[2023-05-18] MEDS: 0.9 % Sodium Chloride Flush 3 ML SYRINGE IVFLUSH ×3 (07:54→21:17)
[2023-05-18] MEDS: Magnesium Oxide 400 MG TABLET PO ×2 (07:54→21:16)
[2023-05-18] MEDS: Escitalopram Oxalate 10 MG TABLET PO (07:54)
[2023-05-18] MEDS: Metoprolol Succinate ER 50 MG TAB.ER.24H PO (07:54)
[2023-05-18] MEDS: Fenofibrate 54 MG TABLET PO (07:54)
[2023-05-18] MEDS: Fluticasone/Vilanterol 100/25 BLST.W.DEV 1 PUFF INHALE (08:18)
--- NOTE | 2023-05-18 09:47 | PM.PNORT ---
Subjective Subjective Date of Service: 05/18/23 Principal diagnosis: left ankle fracture with ARF and CHF Interval history: POD2 s/p Left ankle ORIF Patient is resting in bed comfortably No overnight events Pain is managed No additional complaints Physical Exam Vital Signs: Vital Signs: Last Vital Signs Temp 98.2 F 05/18/23 07:55 Pulse 135 H 05/18/23 08:20 Resp 24 H 05/18/23 08:20 BP 157/95 H 05/18/23 07:55 Pulse Ox 92 05/18/23 07:55 O2 Del Method Nasal Cannula 05/18/23 07:55 O2 Flow Rate 2 05/18/23 07:55 BMI result Body Mass Index 33.9 Const: General: cooperative, healthy appearing and no acute distress Resp: Effort & Inspection: normal respiratory effort and able to speak in complete sentences Cardio: Rate: regular rate Peripheral pulses: Peripheral pulses 2+ throughout GI: Palpation (GI): Soft to palpation Skin: Lesions: no lesions Rashes: no rashes Extrem: Other: Left Ankle splint is c/d/i. Able to move all digits. Sensation intact. capillary refill is brisk. Procedures Date of Service Date of Service: 05/18/23 Progress Note: A&P Assessment and plan (1) Ankle fracture, left: Status: Acute Assessment and Plan: Continue pain mgmnt Resume Xerelto 48hrs post op PT for left ankle ORIF - NWB Dispo planning-cleared from ortho standpoint-f/u in 2 weeks (2) Acute right heart failure: Status: Acute (3) Persistent atrial fibrillation: Status: Acute (4) Congestive heart failure: Status: Acute Time Spent With Patient Time: Total time managing care of this patient today ____ minutes. Quality Stroke Does the patient have a stroke diagnosis?: No VTE Prior VTE?: No VTE Risk Level:: Medical - moderate - high VTE Device Contraindication: N/A - Device Ordered VTE Drug Contraindication: Treatment Not Indicated
--- NOTE | 2023-05-18 12:16 | PM.PNCARD ---
Subjective Subjective Date of Service: 05/18/23 Principal diagnosis: left ankle fracture with ARF and CHF Interval history: Patient is not awake. He is sleepy. is at the bedside. According to the nurse, he was apparently daily areas before. Could have been alcohol withdrawal. Review of Systems Review of Systems Unable to obtain. Physical Exam Vital Signs: Last Vital Signs Temp 98.2 F 05/18/23 07:55 Pulse 135 H 05/18/23 08:20 Resp 24 H 05/18/23 08:20 BP 157/95 H 05/18/23 07:55 Pulse Ox 92 05/18/23 07:55 O2 Del Method Nasal Cannula 05/18/23 07:55 O2 Flow Rate 2 05/18/23 07:55 BMI result Body Mass Index 33.9 Const General: no acute distress, ill appearing and patient obtunded Orientation/consciousness: patient obtunded HEENT Other: Unremarkable Head: Yes normal to inspection Neck Neck: Yes normal visual inspection Chest Chest palpation & inspection: normal inspection of the chest Resp Auscultation: clear to auscultation bilaterally Cardio Palpation: normal PMI Heart sounds: S1 normal heart sound present, S2 normal heart sound present, no gallops, no murmurs and no rubs GI Palpation (GI): Soft to palpation Back/Spine/Pelvis Other: unremarkable Skin General skin exam: no rashes or lesions noted Neuro General: patient obtunded Extrem General: Yes normal to inspection Psych Mental Status: mental status grossly abnormal Objective Labs and Meds 05/18/23 05:26 05/18/23 05:26 Lab results: Laboratory Results - last 24 hr 05/13/23 05/17/23 05/18/23 08:23 17:53 05:26 WBC 9.0 RBC 4.26 L Hgb 15.2 Hct 45.9 MCV 107.7 H MCH 35.7 H MCHC 33.1 RDW 13.2 Plt Count 195 MPV 10.8 Absolute Nucleated RBC 0.000 Nucleated RBC % (auto) 0.0 Smear Path Review SEE NOTE Sodium 137 Potassium 3.9 Chloride 93 L Carbon Dioxide 31 H Anion Gap 17 BUN 22 H Creatinine 0.99 Estim Creat Clear Calc 91.5 Estimated GFR > 60 POC Glucose 154 H Fasting Glucose 121 H Calcium 10.4 H D Magnesium 1.9 Total Bilirubin 2.9 H Direct Bilirubin 1.6 H AST 52 H ALT 10 Alkaline Phosphatase 139 H Total Protein 8.3 H Albumin 3.5 Progress Note: A&P Assessment and plan (1) Atrial fibrillation with rapid ventricular response: Status: Acute (2) Nonrheumatic tricuspid (valve) insufficiency: Status: Acute (3) Alcohol withdrawal delirium: Status: Acute Plan Echocardiogram with LVEF 55-60%. Flattened septum suggestive of right ventricular pressure/volume overload. Severely increased right ventricular cavity size with moderate to severely depressed function. Severely dilated atria. Normal function bioprosthetic aortic valve. Severe tricuspid regurgitation. Clinically, apparently he was delirious and withdrawing, but now looks much more sedated/sleepy. With regard to the issue of atrial fibrillation, rates could be higher when patients are withdrawing from alcohol. Currently, rate about 100/Min but was higher than that few hours ago. However, he was also apparently actively withdrawing at that time per RN. He was trying to climb out of bed extra. With regard to medications, we can up titrate the beta blockers and hold off on the digoxin. Patient's states that patient did not do well with digoxin in the past. Otherwise, I spent a long time discussing with his about postoperative delirium, effects of previous excessive alcohol, ongoing cardiac issues among others. Findings from cardiac standpoint on the echocardiogram also discussed. Overall, he may have a prolonged hospital stay she because of mental status issues. She is aware of that. Discussed with hospitalist. Will follow up with you closely. Time Spent With Patient Time: Total time managing care of this patient today ____ minutes. Progress Note: Quality Stroke Does the patient have a stroke diagnosis?: No Procedures Date of Service Date of Service: 05/18/23
--- NOTE | 2023-05-18 14:12 | HO.PM.IMPN ---
Subjective Subjective Date of Service: 05/18/23 Interval History: seen and examined this morning follow up for left ankle fracture went into rapid afib yesterday afternoon, appeared to be in alcohol withdrawal - was started on phenobarbitol protocol received zyprexa overnight sleepy this morning, disoriented Review of Systems Review of Systems: Yes all other systems are reviewed and are negative Cardiovascular Cardiovascular: Denies chest pain and Denies dyspnea Respiratory Respiratory: Denies dyspnea Gastrointestinal Gastrointestinal: Denies abdominal pain Physical Exam Vital Signs: Vital Signs: Last Vital Signs Temp 98.2 F 05/18/23 07:55 Pulse 112 H 05/18/23 13:43 Resp 24 H 05/18/23 08:20 BP 157/95 H 05/18/23 07:55 Pulse Ox 92 05/18/23 07:55 O2 Del Method Nasal Cannula 05/18/23 07:55 O2 Flow Rate 2 05/18/23 07:55 BMI result Body Mass Index 33.9 Const: Other: sleepy, disoriented Nutritional Appearance: overweight Orientation/consciousness: oriented to person Resp: Effort & Inspection: normal respiratory effort, able to speak in complete sentences, no respiratory distress and no use of accessory muscles Cardio: Rate: tachycardic GI: Inspection: No distended Palpation (GI): Soft to palpation and nontender Neuro: Other: no focal complaints moves all extremities General: oriented to person Extrem: General: Yes no pedal edema Objective Data Active Medications Acetaminophen (Acetaminophen 325 Mg Tablet) 650 mg PO Q6H PRN PRN Reason: Pain, Mild (Pain Scale 1-3) Last Admin: 05/17/23 00:04 Dose: 650 mg Documented By: LINCOLN Atorvastatin Calcium (Atorvastatin Calcium 80 Mg Tablet) 80 mg PO DAILY [facility] Last Admin: 05/18/23 07:53 Dose: 80 mg Documented By: ANNE Docusate Sodium (Docusate Sodium 100 Mg Capsule) 100 mg PO DAILY PRN PRN Reason: Constipation Last Admin: 05/17/23 07:56 Dose: 100 mg Documented By: ANNE Escitalopram Oxalate (Escitalopram Oxalate 10 Mg Tablet) 10 mg PO DAILY [facility] Last Admin: 05/18/23 07:54 Dose: 10 mg Documented By: ANNE Fenofibrate (Fenofibrate 54 Mg Tablet) 54 mg PO DAILY [facility] Last Admin: 05/18/23 07:54 Dose: 54 mg Documented By: ANNE Fluticasone/Vilanterol (Fluticasone/Vilanterol 100/25 Blst.W.Dev) 1 puff INHALE RDAILY [facility] Last Admin: 05/18/23 08:18 Dose: 1 puff Documented By: CROW Hydromorphone HCl (Hydromorphone Hcl 1 Mg/Ml Syringe) 1 mg IVPUSH Q3H PRN; Protocol PRN Reason: Pain, Severe (Pain Scale 7-10) Last Admin: 05/17/23 07:57 Dose: 1 mg Documented By: ANNE Cefazolin Sodium/Dextrose (Ancef) 2 gm in 50 mls @ 100 mls/hr IV Q8H [facility] Last Infusion: 05/18/23 13:45 Dose: Infused Documented By: ANNE Magnesium Oxide (Magnesium Oxide 400 Mg Tablet) 400 mg PO BID [facility] Last Admin: 05/18/23 07:54 Dose: 400 mg Documented By: ANNE Metoprolol Tartrate (Metoprolol Tartrate 50 Mg Tablet) 50 mg PO TID [facility]; Protocol Morphine Sulfate (Morphine Sulfate Er 15 Mg Tablet.Er) 15 mg PO Q12H [facility] Last Admin: 05/18/23 13:55 Dose: Not Given Documented By: ANNE Non-Admin Reason: drowsy Ondansetron HCl (Ondansetron Hcl 4 Mg/2 Ml Vial) 4 mg IVPUSH Q8H PRN PRN Reason: Nausea and Vomiting Pharmacy Consult (Consult Rx Etoh Phenob Im/Po) 1 each MISCELLANE ONCE PRN; Protocol PRN Reason: Consult order Phenobarbital (Phenobarbital 30 Mg Tablet) 60 mg PO BID [facility]; Protocol Stop: 05/19/23 21:01 Last Admin: 05/18/23 07:53 Dose: 60 mg Documented By: ANNE Phenobarbital (Phenobarbital 30 Mg Tablet) 30 mg PO BID [facility]; Protocol Stop: 05/21/23 21:01 Phenobarbital (Phenobarbital 30 Mg Tablet) 30 mg PO DAILY [facility]; Protocol Stop: 05/23/23 09:01 Rivaroxaban (Rivaroxaban 20 Mg Tablet) 20 mg PO DAILY@1700 JOEL Sodium Chloride (0.9 % Sodium Chloride Flush 3 Ml Syringe) 3 ml IVFLUSH QSHIFT [facility] Last Admin: 05/18/23 07:54 Dose: 3 ml Documented By: ANNE Spironolactone (Spironolactone 25 Mg Tablet) 25 mg PO DAILY [facility]; Protocol Last Admin: 05/18/23 07:53 Dose: 25 mg Documented By: ANNE Labs 05/18/23 05:26 05/18/23 05:26 Labs: Laboratory Results - last 24 hr 05/13/23 05/17/23 05/18/23 08:23 17:53 05:26 MCV 107.7 H MCH 35.7 H MCHC 33.1 RDW 13.2 Plt Count 195 MPV 10.8 Absolute Nucleated RBC 0.000 Nucleated RBC % (auto) 0.0 Smear Path Review SEE NOTE Anion Gap 17 Estim Creat Clear Calc 91.5 Estimated GFR > 60 POC Glucose 154 H Fasting Glucose 121 H Calcium 10.4 H D Magnesium 1.9 Total Bilirubin 2.9 H Direct Bilirubin 1.6 H AST 52 H ALT 10 Alkaline Phosphatase 139 H Total Protein 8.3 H Albumin 3.5 Microbiology Microbiology Results: Microbiology 05/12/23 12:49 Blood Culture - Final Blood - Venous No growth after 5 days. 05/12/23 12:39 Blood Culture - Final Blood - Venous No growth after 5 days. Assessment and Plan (1) Atrial fibrillation with rapid ventricular response: Status: Acute (2) Alcohol withdrawal delirium: Status: Acute (3) Ankle fracture, left: Status: Acute Plan 68M PMH persistent atrial fibrillation on Xarelto, bioprosthetic aortic valve, hld, etoh dependence, obesity, presented with left ankle pain after falls found to have left ankle fracture etoh dependence with alcohol withdrawal started on phenobarbitol 05/17 thiamine/folic acid supplementation monitor ciwa persistent afib with rvr xarelto on hold for surgery, scheduled to resume today HR uncontrolled, will increase dose of BB will stop dig (did not tolerate well previously per family) cardiology following urinary retention will place matt, 05/18. voiding trial in 48 hours left ankle open fracture pod2 s/p iv ancef pain control NWB LLE dispo - patient would like to go home, but will likely need rehab, PT rec acute rehab - to be determined ILSA resolved ?due to nsaids vs poor perfusion from cardizem and right heart failure acute hypoxic respiratory failure and acute right heart failure diuresed, now on room air vq scan negative possible due to history of left sided heart failure and more chronic, though not found on previous echos elevated lfts ?etoh and non etoh fatty liver CT showing likely fatty infiltration outpatient follow up obesity weight loss hld statin, fibrate AAA incidental finding ofsmall lower abdominal aortic aneurysm measureing 3.2cm recommend outpatient follow up every 3 years full code DVT ppx - xarelto attending - Dr. Rees reason for continued hospitalization: afib with RVR, etoh withdrawal, monitor postop Time Spent With Patient Time: Total time managing care of this patient today ____ minutes. Quality Stroke Does the patient have a stroke diagnosis?: No VTE Prior VTE?: No VTE Risk Level:: Medical - moderate - high VTE Device Contraindication: N/A - Device Ordered VTE Drug Contraindication: Treatment Not Indicated
[2023-05-18] MEDS: Metoprolol Tartrate 50 MG TABLET PO ×2 (15:43→21:17)
[2023-05-18] MEDS: polyethylene glycoL 3350 17 GM POWD.PACK PO (15:43)
[2023-05-18] MEDS: Rivaroxaban 20 MG TABLET PO (17:59)
[2023-05-19] VITALS (7 sets, daily range): BP systolic 110–133; BP diastolic 59–77; PULSE 74–117; RESP 14–22; TEMP 36–36.6; O2SAT 92–98
[2023-05-19] MEDS: OLANZapine 10 MG VIAL IM (00:05)
[2023-05-19 06:37] LABS: Anion Gap 17 (12-20); Blood Urea Nitrogen 23 mg/dL (9-16); Calcium 9.5 mg/dL (8.4-10.2); Carbon Dioxide 24 mmol/L (22-29); Chloride 99 mmol/L (96-108); Creatinine Clr Calc Pharmacy 106.6; Estimated Glomerular Filt Rate > 60; Glucose Random 109 mg/dL (60-115); Potassium 3.7 mmol/L (3.3-5.1); Sodium 136 mmol/L (135-145)
[2023-05-19] MEDS: 0.9 % Sodium Chloride Flush 3 ML SYRINGE IVFLUSH ×3 (09:29→19:43)
[2023-05-19] MEDS: Metoprolol Tartrate 50 MG TABLET PO ×3 (09:31→19:40)
[2023-05-19] MEDS: Thiamine HCL 100 MG TABLET PO (09:33)
[2023-05-19] MEDS: PHENobarbitaL 30 MG TABLET 60 MG PO (09:33)
[2023-05-19] MEDS: Folic Acid 1 MG TABLET PO (09:33)
[2023-05-19] MEDS: Magnesium Oxide 400 MG TABLET PO ×2 (09:34→19:40)
[2023-05-19] MEDS: Spironolactone 25 MG TABLET PO (09:34)
[2023-05-19] MEDS: Escitalopram Oxalate 10 MG TABLET PO (09:34)
[2023-05-19] MEDS: Atorvastatin Calcium 80 MG TABLET PO (09:34)
[2023-05-19] MEDS: Docusate Sodium 100 MG CAPSULE PO (09:34)
[2023-05-19] MEDS: Fenofibrate 54 MG TABLET PO (09:34)
[2023-05-19] MEDS: polyethylene glycoL 3350 17 GM POWD.PACK PO (09:35)
[2023-05-19] MEDS: Acetaminophen 325 MG TABLET 650 MG PO ×2 (09:55→19:40)
--- NOTE | 2023-05-19 12:55 | P.PNIM_ITS ---
Subjective Subjective Date of Service: 05/19/23 Interval History: seen and examined this morning follow up for encephalopathy, ankle fracture received zyprex overnight, sleepy this morning, difficult to obtain history Physical Exam 2 Vital Signs: Vital Signs: Last Vital Signs Temp 96.8 F 05/19/23 11:00 Pulse 85 05/19/23 12:03 Resp 16 05/19/23 11:00 BP 110/59 L 05/19/23 12:03 Pulse Ox 92 05/19/23 12:03 O2 Del Method Nasal Cannula 05/19/23 11:00 O2 Flow Rate 2 05/19/23 11:00 BMI result Body Mass Index 33.9 Const: Other: sleepy, disoriented Nutritional Appearance: overweight Orientation/consciousness: oriented to person Resp: Effort & Inspection: normal respiratory effort, able to speak in complete sentences, no respiratory distress and no use of accessory muscles Cardio: Rate: regular rate GI: Inspection: No distended Palpation (GI): Soft to palpation Neuro: Other: no focal complaints moves all extremities General: oriented to person Extrem: General: Yes no pedal edema Objective Data Active Medications Acetaminophen (Acetaminophen 325 Mg Tablet) 650 mg PO Q6H PRN PRN Reason: Pain, Mild (Pain Scale 1-3) Last Admin: 05/19/23 09:55 Dose: 650 mg Documented By: SCAR Atorvastatin Calcium (Atorvastatin Calcium 80 Mg Tablet) 80 mg PO DAILY [facility] Last Admin: 05/19/23 09:34 Dose: 80 mg Documented By: SCAR Docusate Sodium (Docusate Sodium 100 Mg Capsule) 100 mg PO DAILY [facility] Last Admin: 05/19/23 09:34 Dose: 100 mg Documented By: SCAR Escitalopram Oxalate (Escitalopram Oxalate 10 Mg Tablet) 10 mg PO DAILY [facility] Last Admin: 05/19/23 09:34 Dose: 10 mg Documented By: SCAR Fenofibrate (Fenofibrate 54 Mg Tablet) 54 mg PO DAILY [facility] Last Admin: 05/19/23 09:34 Dose: 54 mg Documented By: SCAR Fluticasone/Vilanterol (Fluticasone/Vilanterol 100/25 Blst.W.Dev) 1 puff INHALE RDAILY [facility] Last Admin: 05/19/23 07:54 Dose: Not Given Documented By: KERLINE Non-Admin Reason: Patient Asleep Folic Acid (Folic Acid 1 Mg Tablet) 1 mg PO DAILY [facility] Last Admin: 05/19/23 09:33 Dose: 1 mg Documented By: SCAR Hydromorphone HCl (Hydromorphone Hcl 1 Mg/Ml Syringe) 0.5 mg IVPUSH Q3H PRN; Protocol PRN Reason: Pain, Severe (Pain Scale 7-10) Magnesium Oxide (Magnesium Oxide 400 Mg Tablet) 400 mg PO BID [facility] Last Admin: 05/19/23 09:34 Dose: 400 mg Documented By: SCAR Metoprolol Tartrate (Metoprolol Tartrate 50 Mg Tablet) 50 mg PO TID [facility]; Protocol Last Admin: 05/19/23 09:31 Dose: 50 mg Documented By: SCAR Morphine Sulfate (Morphine Sulfate Er 15 Mg Tablet.Er) 15 mg PO Q12H [facility] Last Admin: 05/18/23 13:55 Dose: Not Given Documented By: ANNE Non-Admin Reason: drowsy Ondansetron HCl (Ondansetron Hcl 4 Mg/2 Ml Vial) 4 mg IVPUSH Q8H PRN PRN Reason: Nausea and Vomiting Pharmacy Consult (Consult Rx Etoh Phenob Im/Po) 1 each MISCELLANE ONCE PRN; Protocol PRN Reason: Consult order Phenobarbital (Phenobarbital 30 Mg Tablet) 60 mg PO BID [facility]; Protocol Stop: 05/19/23 21:01 Last Admin: 05/19/23 09:33 Dose: 60 mg Documented By: SCAR Phenobarbital (Phenobarbital 30 Mg Tablet) 30 mg PO BID [facility]; Protocol Stop: 05/21/23 21:01 Phenobarbital (Phenobarbital 30 Mg Tablet) 30 mg PO DAILY [facility]; Protocol Stop: 05/23/23 09:01 Polyethylene Glycol (Polyethylene Glycol 3350 17 Gm Powd.Pack) 17 gm PO DAILY [facility] Last Admin: 05/19/23 09:35 Dose: 17 gm Documented By: SCAR Rivaroxaban (Rivaroxaban 20 Mg Tablet) 20 mg PO DAILY@1700 [facility] Last Admin: 05/18/23 17:59 Dose: 20 mg Documented By: ANNE Sodium Chloride (0.9 % Sodium Chloride Flush 3 Ml Syringe) 3 ml IVFLUSH QSHIFT [facility] Last Admin: 05/19/23 09:29 Dose: 3 ml Documented By: SCAR Spironolactone (Spironolactone 25 Mg Tablet) 25 mg PO DAILY [facility]; Protocol Last Admin: 05/19/23 09:34 Dose: 25 mg Documented By: SCAR Thiamine HCl (Thiamine Hcl 100 Mg Tablet) 100 mg PO DAILY [facility] Last Admin: 05/19/23 09:33 Dose: 100 mg Documented By: SCAR Trazodone HCl (Trazodone Hcl 25 Mg Halftab) 25 mg PO BEDTIME MRX1 PRN PRN Reason: Sleep Labs 05/18/23 05:26 05/19/23 06:06 Labs: Laboratory Results - last 24 hr 05/19/23 05/19/23 06:06 06:12 Hold Purple Top SEE NOTE Anion Gap 17 Estim Creat Clear Calc 106.6 Estimated GFR > 60 Random Glucose 109 Calcium 9.5 D Assessment and Plan (1) Alcohol withdrawal delirium: Status: Acute (2) Atrial fibrillation with rapid ventricular response: Status: Acute (3) Ankle fracture, left: Status: Acute Plan 68M PMH persistent atrial fibrillation on Xarelto, bioprosthetic aortic valve, hld, etoh dependence, obesity, presented with left ankle pain after falls found to have left ankle fracture etoh dependence with alcohol withdrawal started on phenobarbitol 05/17 thiamine/folic acid supplementation monitor ciwa afib with rvr xarelto resumed dose of BB increased, HR better controlled will stop dig (did not tolerate well previously per family) cardiology following urinary retention will place matt, 05/18. voiding trial in 48 hours left ankle open fracture pod3 s/p iv ancef pain control NWB LLE dispo - patient would like to go home, but will likely need rehab, PT rec acute rehab - to be determined ILSA resolved ?due to nsaids vs poor perfusion from cardizem and right heart failure acute hypoxic respiratory failure and acute right heart failure diuresed vq scan negative possible due to history of left sided heart failure and more chronic, though not found on previous echos elevated lfts ?etoh and non etoh fatty liver CT showing likely fatty infiltration outpatient follow up obesity weight loss hld statin, fibrate AAA incidental finding ofsmall lower abdominal aortic aneurysm measureing 3.2cm recommend outpatient follow up every 3 years full code DVT ppx - xarelto attending - Dr. Rees reason for continued hospitalization: afib with RVR, etoh withdrawal, monitor postop Time Spent With Patient Time: Total time managing care of this patient today ____ minutes. Quality Stroke Does the patient have a stroke diagnosis?: No VTE Prior VTE?: No VTE Risk Level:: Medical - moderate - high VTE Device Contraindication: N/A - Device Ordered VTE Drug Contraindication: Treatment Not Indicated
--- NOTE | 2023-05-19 15:33 | MHC.CM.PN ---
EMR REVIEWED AND PER MD ROUNDS, PT NOT MEDICALLY CLEARED FOR DC (REMAINS ENCEPHALOPATHIC) CM WILL CONTINUE TO FOLLOW FOR ANY CHANGE IN DC PLAN.
--- NOTE | 2023-05-19 16:30 | P.CNPS_ITS ---
History of Present Illness Date of Service: 05/19/2023 Chief Complaint: Open fracture of left ankle, syncope, Afib Reason for Consult: delirium Requesting physician: Shivani Guillen Discussed with referring provider: Yes Sources of Information: patient interviewed, chart reviewed and crisis/core team assessment reviewed HPI Narrative: Mr. Cid is a 68 year-old male admitted for left ankle fracture s/p ORIF. Pt was initially admitted on 05/12 due to ankle fracture, surgery initially post pone due to pt being on xarelto for afib. Later complicated by exacerbation of CHF and ILSA. Pt finally had left ankle surgery on 05/16. On 05/17 pt noted to be more confused, later than evening pt presented with Afib and RVR. Suspicion of alcohol related delirium and started on phenobarbital protocol on 05/17. Per , pt drinks 4 out of 7 days but has periods of not drinking without any complications. Timing does not coincide with alcohol withdrawal as he had been in the hospital for 6 days without any signs of alcohol withdrawal. Suspect delirium may be related to anesthesia/post op. Pt seen in room with present. Pt somnolent difficult to wake up. He was up last night and was given olanzapine. [facility] Medical History (Updated 05/19/23 @ 17:06 by Macarena Fox) Afib Sleep apnea Surgical History Status post aortic valve replacement Diagnostics Vital Signs (24Hr): Vital Signs - 24 hr 05/18/23 16:53 05/18/23 21:10 05/18/23 21:39 Temperature 98.1 F 97.9 F Pulse Rate 102 H 104 H Respiratory Rate 20 18 18 Blood Pressure 129/85 121/76 Pulse Oximetry 93 94 Oxygen Delivery Method Room Air Nasal Cannula Oxygen Flow Rate 2 05/18/23 23:56 05/19/23 07:00 05/19/23 11:00 Temperature 97.9 F 96.8 F Pulse Rate 95 88 85 Respiratory Rate 18 22 H 16 Blood Pressure 123/63 130/77 110/59 L Pulse Oximetry 93 98 92 Oxygen Delivery Method Nasal Cannula Nasal Cannula Nasal Cannula Oxygen Flow Rate 2 2 2 05/19/23 12:03 05/19/23 15:00 05/19/23 16:27 Temperature 97.1 F 96.9 F Pulse Rate 85 117 H 74 Respiratory Rate 18 18 Blood Pressure 110/59 L 122/64 120/69 Pulse Oximetry 92 92 94 Oxygen Delivery Method Room Air Nasal Cannula Oxygen Flow Rate 2.0 BMI result Body Mass Index 33.9 Labs 05/18/23 05:26 05/19/23 06:06 Labs: Laboratory Results - last 48 hr 05/13/23 05/17/23 05/18/23 08:23 17:53 05:26 WBC 9.0 RBC 4.26 L Hgb 15.2 Hct 45.9 MCV 107.7 H MCH 35.7 H MCHC 33.1 RDW 13.2 Plt Count 195 MPV 10.8 Absolute Nucleated RBC 0.000 Nucleated RBC % (auto) 0.0 Smear Path Review SEE NOTE Hold Purple Top Sodium 137 Potassium 3.9 Chloride 93 L Carbon Dioxide 31 H Anion Gap 17 BUN 22 H Creatinine 0.99 Estim Creat Clear Calc 91.5 Estimated GFR > 60 POC Glucose 154 H Random Glucose Fasting Glucose 121 H Calcium 10.4 H D Magnesium 1.9 Total Bilirubin 2.9 H Direct Bilirubin 1.6 H AST 52 H ALT 10 Alkaline Phosphatase 139 H Total Protein 8.3 H Albumin 3.5 05/19/23 05/19/23 06:06 06:12 WBC RBC Hgb Hct MCV MCH MCHC RDW Plt Count MPV Absolute Nucleated RBC Nucleated RBC % (auto) Smear Path Review Hold Purple Top SEE NOTE Sodium 136 Potassium 3.7 Chloride 99 Carbon Dioxide 24 Anion Gap 17 BUN 23 H Creatinine 0.85 Estim Creat Clear Calc 106.6 Estimated GFR > 60 POC Glucose Random Glucose 109 Fasting Glucose Calcium 9.5 D Magnesium Total Bilirubin Direct Bilirubin AST ALT Alkaline Phosphatase Total Protein Albumin Imaging Radiology Impressions: ITS Impressions Ankle X-Ray 05/12/23 12:16 IMPRESSION: Displaced distal fibular fracture with mortise disruption. Chest X-Ray 05/12/23 19:04 IMPRESSION: * Pulmonary vascular congestion without scot failure. * Left hemidiaphragm is partially obscured probably by underlying pleural effusion, infiltrate and/or atelectasis. Abdomen/Pelvis CT 05/13/23 11:31 IMPRESSION: Multiple fatty infiltration of the liver. Small gallstone. Bilateral renal perinephric fat stranding. Small lower abdominal aortic aneurysm measuring 3.2 cm. Recommend AAA follow-up every 3 years. Reference: J Am [facility] Radiol 2013; 10 (10): 789-794. Fleischner guidelines were followed. Renal Ultrasound 05/13/23 13:00 IMPRESSION: Unremarkable renal ultrasound. Pulmonary Perfusion Imaging 05/14/23 09:50 IMPRESSION: No evidence of perfusion defect to suspect any PE. Chest X-Ray 05/14/23 11:40 IMPRESSION: Mild diffuse prominence of the vasculature suggestive of mild pulmonary edema. Mild bibasilar streaky opacities may represent atelectasis and/or pneumonia, left greater than right. Guidance Fluoroscopy 05/16/23 14:15 IMPRESSION: Fluoroscopy provided for ORIF left ankle fracture. Mental Status Exam Mental Status Exam Narrative: limited due to somnolence suspect s/s to phenobarbital Medications Medications Current Medications Acetaminophen (Acetaminophen 325 Mg Tablet) 650 mg PO Q6H PRN PRN Reason: Pain, Mild (Pain Scale 1-3) Last Admin: 05/19/23 09:55 Dose: 650 mg Atorvastatin Calcium (Atorvastatin Calcium 80 Mg Tablet) 80 mg PO DAILY [facility] Last Admin: 05/19/23 09:34 Dose: 80 mg Docusate Sodium (Docusate Sodium 100 Mg Capsule) 100 mg PO DAILY [facility] Last Admin: 05/19/23 09:34 Dose: 100 mg Escitalopram Oxalate (Escitalopram Oxalate 10 Mg Tablet) 10 mg PO DAILY [facility] Last Admin: 05/19/23 09:34 Dose: 10 mg Fenofibrate (Fenofibrate 54 Mg Tablet) 54 mg PO DAILY [facility] Last Admin: 05/19/23 09:34 Dose: 54 mg Fluticasone/Vilanterol (Fluticasone/Vilanterol 100/25 Blst.W.Dev) 1 puff INHALE RDAILY [facility] Last Admin: 05/19/23 07:54 Dose: Not Given Folic Acid (Folic Acid 1 Mg Tablet) 1 mg PO DAILY [facility] Last Admin: 05/19/23 09:33 Dose: 1 mg Hydromorphone HCl (Hydromorphone Hcl 1 Mg/Ml Syringe) 0.5 mg IVPUSH Q3H PRN; Protocol PRN Reason: Pain, Severe (Pain Scale 7-10) Magnesium Oxide (Magnesium Oxide 400 Mg Tablet) 400 mg PO BID [facility] Last Admin: 05/19/23 09:34 Dose: 400 mg Metoprolol Tartrate (Metoprolol Tartrate 50 Mg Tablet) 50 mg PO TID [facility]; Protocol Last Admin: 05/19/23 14:46 Dose: 50 mg Ondansetron HCl (Ondansetron Hcl 4 Mg/2 Ml Vial) 4 mg IVPUSH Q8H PRN PRN Reason: Nausea and Vomiting Oxycodone HCl (Oxycodone Hcl Immed Release 5 Mg Tablet) 5 mg PO Q6H PRN PRN Reason: Pain, Moderate(Pain Scale 4-6) Pharmacy Consult (Consult Rx Etoh Phenob Im/Po) 1 each MISCELLANE ONCE PRN; Protocol PRN Reason: Consult order Polyethylene Glycol (Polyethylene Glycol 3350 17 Gm Powd.Pack) 17 gm PO DAILY [facility] Last Admin: 05/19/23 09:35 Dose: 17 gm Rivaroxaban (Rivaroxaban 20 Mg Tablet) 20 mg PO DAILY@1700 [facility] Last Admin: 05/18/23 17:59 Dose: 20 mg Sodium Chloride (0.9 % Sodium Chloride Flush 3 Ml Syringe) 3 ml IVFLUSH QSHIFT [facility] Last Admin: 05/19/23 09:29 Dose: 3 ml Spironolactone (Spironolactone 25 Mg Tablet) 25 mg PO DAILY [facility]; Protocol Last Admin: 05/19/23 09:34 Dose: 25 mg Thiamine HCl (Thiamine Hcl 100 Mg Tablet) 100 mg PO DAILY [facility] Last Admin: 05/19/23 09:33 Dose: 100 mg Allergies Allergies Allergy/AdvReac Type Severity Reaction Status Date / Time diltiazem AdvReac Intermediate acute Verified 05/14/23 11:53 kidney injury Assessment & Plan Assessment & Plan (1) Delirium: Status: Acute Code(s): R41.0 - Disorientation, unspecified Plan Mr. Cid has been presenting as more confused after left knee surgery. I do not think his delirium is secondary to delirium tremens as timing does not coincide with alcohol withdrawal as he had been in the hospital for 6 days without any signs of alcohol withdrawal. Suspect delirium may be related to anesthesia/post op. He currently presents as sedated/somnolent due to phenobarbital. Most likely he will be up at night as he has been sleeping most of the day with brief periods of being awake. PLAN 1. I would recommend stopping phenobarbital taper- delirium does not appear to be related delirium tremens. 2. In event of agitation can try low dose haldol 2mg IM/IV or PO q6h prn agitation, monitor EKG, Qtc<500ms, K>4, Mg>2. Avoid for now benzodiazepines, avoid antihistamines. 3. Please consult psychiatry for further assistance in combative behaviors s/s to delirium Total time managing care of this patient today ____ minutes.
[2023-05-19] MEDS: Rivaroxaban 20 MG TABLET PO (16:52)
[2023-05-19] MEDS: oxyCODONE HCl Immed Release 5 MG TABLET PO (19:40)
[2023-05-20] VITALS (7 sets, daily range): BP systolic 115–154; BP diastolic 68–90; PULSE 77–108; RESP 14–18; TEMP 36.2–36.7; O2SAT 90–97
[2023-05-20] MEDS: Thiamine HCL 100 MG TABLET PO (07:25)
[2023-05-20] MEDS: Acetaminophen 325 MG TABLET 650 MG PO (07:25)
[2023-05-20] MEDS: Metoprolol Tartrate 50 MG TABLET PO ×3 (07:25→19:46)
[2023-05-20] MEDS: Folic Acid 1 MG TABLET PO (07:25)
[2023-05-20] MEDS: oxyCODONE HCl Immed Release 5 MG TABLET PO ×2 (07:26→14:39)
[2023-05-20] MEDS: 0.9 % Sodium Chloride Flush 3 ML SYRINGE IVFLUSH ×3 (07:26→19:47)
[2023-05-20] MEDS: Escitalopram Oxalate 10 MG TABLET PO (07:26)
[2023-05-20] MEDS: Spironolactone 25 MG TABLET PO (07:26)
[2023-05-20] MEDS: Fenofibrate 54 MG TABLET PO (07:26)
[2023-05-20] MEDS: Atorvastatin Calcium 80 MG TABLET PO (07:26)
[2023-05-20] MEDS: Docusate Sodium 100 MG CAPSULE PO (07:26)
[2023-05-20] MEDS: Magnesium Oxide 400 MG TABLET PO ×2 (07:26→19:46)
[2023-05-20] MEDS: Fluticasone/Vilanterol 100/25 BLST.W.DEV 1 PUFF INHALE (08:05)
--- NOTE | 2023-05-20 14:07 | HO.PM.IMPN ---
Subjective Subjective Date of Service: 05/20/23 Interval History: seen and examined this morning easily arousable to verbal stimuli less confused today Review of Systems Review of Systems: Yes all other systems are reviewed and are negative Constitutional Constitutional: Denies chills and Denies fever(s) Cardiovascular Cardiovascular: Denies chest pain, Denies palpitations and Denies dyspnea Respiratory Respiratory: Denies cough and Denies dyspnea Gastrointestinal Gastrointestinal: Denies abdominal pain Endocrine Endocrine: Denies palpitations Physical Exam Vital Signs: Vital Signs: Last Vital Signs Temp 98 F 05/20/23 11:05 Pulse 94 05/20/23 11:05 Resp 18 05/20/23 11:05 BP 123/75 05/20/23 11:05 Pulse Ox 90 L 05/20/23 11:05 O2 Del Method Room Air 05/20/23 11:05 O2 Flow Rate 2 05/19/23 19:04 BMI result Body Mass Index 33.9 Const: General: alert and awake Nutritional Appearance: overweight Resp: Effort & Inspection: normal respiratory effort, able to speak in complete sentences, no respiratory distress and no use of accessory muscles Cardio: Rate: regular rate GI: Inspection: No distended Palpation (GI): Soft to palpation and nontender Neuro: Other: grossly nonfocal General: moves all extremities Extrem: General: Yes no pedal edema Objective Data Active Medications Acetaminophen (Acetaminophen 325 Mg Tablet) 650 mg PO Q6H PRN PRN Reason: Pain, Mild (Pain Scale 1-3) Last Admin: 05/20/23 07:25 Dose: 650 mg Documented By: CHACHA Atorvastatin Calcium (Atorvastatin Calcium 80 Mg Tablet) 80 mg PO DAILY [facility] Last Admin: 05/20/23 07:26 Dose: 80 mg Documented By: CHACHA Docusate Sodium (Docusate Sodium 100 Mg Capsule) 100 mg PO DAILY [facility] Last Admin: 05/20/23 07:26 Dose: 100 mg Documented By: CHACHA Escitalopram Oxalate (Escitalopram Oxalate 10 Mg Tablet) 10 mg PO DAILY [facility] Last Admin: 05/20/23 07:26 Dose: 10 mg Documented By: CHACHA Fenofibrate (Fenofibrate 54 Mg Tablet) 54 mg PO DAILY [facility] Last Admin: 05/20/23 07:26 Dose: 54 mg Documented By: CHACHA Fluticasone/Vilanterol (Fluticasone/Vilanterol 100/25 Blst.W.Dev) 1 puff INHALE RDAILY [facility] Last Admin: 05/20/23 08:05 Dose: 1 puff Documented By: CROW Folic Acid (Folic Acid 1 Mg Tablet) 1 mg PO DAILY [facility] Last Admin: 05/20/23 07:25 Dose: 1 mg Documented By: CHACHA Hydromorphone HCl (Hydromorphone Hcl 1 Mg/Ml Syringe) 0.5 mg IVPUSH Q3H PRN; Protocol PRN Reason: Pain, Severe (Pain Scale 7-10) Magnesium Oxide (Magnesium Oxide 400 Mg Tablet) 400 mg PO BID [facility] Last Admin: 05/20/23 07:26 Dose: 400 mg Documented By: CHACHA Metoprolol Tartrate (Metoprolol Tartrate 50 Mg Tablet) 50 mg PO TID [facility]; Protocol Last Admin: 05/20/23 07:25 Dose: 50 mg Documented By: CHACHA Ondansetron HCl (Ondansetron Hcl 4 Mg/2 Ml Vial) 4 mg IVPUSH Q8H PRN PRN Reason: Nausea and Vomiting Oxycodone HCl (Oxycodone Hcl Immed Release 5 Mg Tablet) 5 mg PO Q6H PRN PRN Reason: Pain, Moderate(Pain Scale 4-6) Last Admin: 05/20/23 07:26 Dose: 5 mg Documented By: CHACHA Pharmacy Consult (Consult Rx Etoh Phenob Im/Po) 1 each MISCELLANE ONCE PRN; Protocol PRN Reason: Consult order Polyethylene Glycol (Polyethylene Glycol 3350 17 Gm Powd.Pack) 17 gm PO DAILY [facility] Last Admin: 05/20/23 07:27 Dose: Not Given Documented By: CHACHA Non-Admin Reason: Patient Refused Rivaroxaban (Rivaroxaban 20 Mg Tablet) 20 mg PO DAILY@1700 [facility] Last Admin: 05/19/23 16:52 Dose: 20 mg Documented By: CRISTOBAL Sodium Chloride (0.9 % Sodium Chloride Flush 3 Ml Syringe) 3 ml IVFLUSH QSHIFT [facility] Last Admin: 05/20/23 07:26 Dose: 3 ml Documented By: CHACHA Spironolactone (Spironolactone 25 Mg Tablet) 25 mg PO DAILY [facility]; Protocol Last Admin: 05/20/23 07:26 Dose: 25 mg Documented By: CHACHA Thiamine HCl (Thiamine Hcl 100 Mg Tablet) 100 mg PO DAILY [facility] Last Admin: 05/20/23 07:25 Dose: 100 mg Documented By: CHACHA Labs 05/18/23 05:26 05/19/23 06:06 Assessment and Plan (1) Delirium: Status: Acute (2) Atrial fibrillation with rapid ventricular response: Status: Acute Plan 68M PMH persistent atrial fibrillation on Xarelto, bioprosthetic aortic valve, hld, etoh dependence, obesity, presented with left ankle pain after falls found to have left ankle fracture agitation likely dilirium initially thought to be related to etoh withdrawal, but may have been related to post -anesthesia started on phenobarbitol 05/17 and completed initial treatment, will stop taper seen by psych, rec prn haldol for any ongoing agitation mental status improving afib with rvr xarelto resumed dose of BB increased, HR better controlled will stop dig (did not tolerate well previously per family) cardiology following urinary retention will place gutierrez, 05/18. voiding trial today left ankle open fracture pod3 s/p iv ancef pain control NWB LLE dispo - patient would like to go home, but will likely need rehab, PT rec acute rehab - to be determined ILSA resolved ?due to nsaids vs poor perfusion from cardizem and right heart failure acute hypoxic respiratory failure and acute right heart failure diuresed vq scan negative possible due to history of left sided heart failure and more chronic, though not found on previous echos elevated lfts ?etoh and non etoh fatty liver CT showing likely fatty infiltration outpatient follow up obesity weight loss hld statin, fibrate AAA incidental finding ofsmall lower abdominal aortic aneurysm measureing 3.2cm recommend outpatient follow up every 3 years full code DVT ppx - xarelto attending - Dr. Jimenez reason for continued hospitalization: afib with RVR, delirium, monitor postop Time Spent With Patient Time: Total time managing care of this patient today ____ minutes. Quality Stroke Does the patient have a stroke diagnosis?: No VTE Prior VTE?: No VTE Risk Level:: Medical - moderate - high VTE Device Contraindication: N/A - Device Ordered VTE Drug Contraindication: Treatment Not Indicated
[2023-05-20] MEDS: Rivaroxaban 20 MG TABLET PO (16:09)
[2023-05-20] MEDS: LORazepam 0.5 MG TABLET PO (18:46)
[2023-05-20] MEDS: HYDROmorphone HCl 1 MG/ML SYRINGE 0.5 MG IVPUSH (19:47)
[2023-05-21] VITALS (9 sets, daily range): BP systolic 105–141; BP diastolic 62–87; PULSE 78–97; RESP 14–18; TEMP 36.3–37.4; O2SAT 92–97
[2023-05-21] MEDS: HYDROmorphone HCl 1 MG/ML SYRINGE 0.5 MG IVPUSH ×2 (00:26→05:48)
[2023-05-21] MEDS: 0.9 % Sodium Chloride Flush 3 ML SYRINGE IVFLUSH ×4 (00:27→20:33)
[2023-05-21 06:58] LABS: Alanine Aminotransferase 25 U/L (0-40); Alkaline Phosphatase 166 U/L (39-117); Aspartate Amino Transferase 73 U/L (5-37); Bilirubin Total 1.7 mg/dL (0.0-1.0); Total Protein 6.9 g/dL (6.5-8.0)
[2023-05-21] MEDS: Fluticasone/Vilanterol 100/25 BLST.W.DEV 1 PUFF INHALE (08:00)
[2023-05-21] MEDS: Spironolactone 25 MG TABLET PO (08:32)
[2023-05-21] MEDS: Docusate Sodium 100 MG CAPSULE PO (08:32)
[2023-05-21] MEDS: Metoprolol Tartrate 50 MG TABLET PO ×3 (08:32→20:29)
[2023-05-21] MEDS: Magnesium Oxide 400 MG TABLET PO ×2 (08:32→20:29)
[2023-05-21] MEDS: Atorvastatin Calcium 80 MG TABLET PO (08:32)
[2023-05-21] MEDS: Escitalopram Oxalate 10 MG TABLET PO (08:32)
[2023-05-21] MEDS: Thiamine HCL 100 MG TABLET PO (08:32)
[2023-05-21] MEDS: Folic Acid 1 MG TABLET PO (08:33)
[2023-05-21] MEDS: Fenofibrate 54 MG TABLET PO (08:33)
[2023-05-21] MEDS: oxyCODONE HCl Immed Release 5 MG TABLET PO (11:23)
--- NOTE | 2023-05-21 12:22 | P.PNIM_ITS ---
Subjective Subjective Date of Service: 05/22/23 Interval History: dilirium Review of Systems somewhat anxious ,mental status seems slowly improving denies any chest pain or sob or fevers. Physical Exam 2 Vital Signs: Vital Signs: Last Vital Signs Temp 98.9 F 05/21/23 11:23 Pulse 92 05/21/23 11:23 Resp 18 05/21/23 11:23 BP 129/70 05/21/23 11:23 Pulse Ox 92 05/21/23 11:23 O2 Del Method Room Air 05/21/23 11:23 O2 Flow Rate 2 05/19/23 19:04 BMI result Body Mass Index 33.9 Appearance: Alert.? Oriented ,? anxious ? cvs: rrr, [id number]. res: clear to auscultation ,no rhonchii or wheezing abd: no rebound or guarding ,nt, bs present. ext pulses present , no cyanosis. neuro: nonfocal. Objective Data Active Medications Acetaminophen (Acetaminophen 325 Mg Tablet) 650 mg PO Q6H PRN PRN Reason: Pain, Mild (Pain Scale 1-3) Last Admin: 05/20/23 07:25 Dose: 650 mg Documented By: CHACHA Atorvastatin Calcium (Atorvastatin Calcium 80 Mg Tablet) 80 mg PO DAILY [facility] Last Admin: 05/21/23 08:32 Dose: 80 mg Documented By: CHACHA Docusate Sodium (Docusate Sodium 100 Mg Capsule) 100 mg PO DAILY [facility] Last Admin: 05/21/23 08:32 Dose: 100 mg Documented By: CHACHA Escitalopram Oxalate (Escitalopram Oxalate 10 Mg Tablet) 10 mg PO DAILY [facility] Last Admin: 05/21/23 08:32 Dose: 10 mg Documented By: CHACHA Fenofibrate (Fenofibrate 54 Mg Tablet) 54 mg PO DAILY [facility] Last Admin: 05/21/23 08:33 Dose: 54 mg Documented By: CHACHA Fluticasone/Vilanterol (Fluticasone/Vilanterol 100/25 Blst.W.Dev) 1 puff INHALE RDAILY [facility] Last Admin: 05/21/23 08:00 Dose: 1 puff Documented By: ABDI Folic Acid (Folic Acid 1 Mg Tablet) 1 mg PO DAILY [facility] Last Admin: 05/21/23 08:33 Dose: 1 mg Documented By: CHACHA Hydromorphone HCl (Hydromorphone Hcl 1 Mg/Ml Syringe) 0.5 mg IVPUSH Q3H PRN; Protocol PRN Reason: Pain, Severe (Pain Scale 7-10) Last Admin: 05/21/23 05:48 Dose: 0.5 mg Documented By: TAMMI Magnesium Oxide (Magnesium Oxide 400 Mg Tablet) 400 mg PO BID [facility] Last Admin: 05/21/23 08:32 Dose: 400 mg Documented By: CHACHA Metoprolol Tartrate (Metoprolol Tartrate 50 Mg Tablet) 50 mg PO TID [facility]; Protocol Last Admin: 05/21/23 08:32 Dose: 50 mg Documented By: CHACHA Ondansetron HCl (Ondansetron Hcl 4 Mg/2 Ml Vial) 4 mg IVPUSH Q8H PRN PRN Reason: Nausea and Vomiting Oxycodone HCl (Oxycodone Hcl Immed Release 5 Mg Tablet) 5 mg PO Q6H PRN PRN Reason: Pain, Moderate(Pain Scale 4-6) Last Admin: 05/21/23 11:23 Dose: 5 mg Documented By: CHACHA Pharmacy Consult (Consult Rx Etoh Phenob Im/Po) 1 each MISCELLANE ONCE PRN; Protocol PRN Reason: Consult order Polyethylene Glycol (Polyethylene Glycol 3350 17 Gm Powd.Pack) 17 gm PO DAILY [facility] Last Admin: 05/21/23 08:33 Dose: Not Given Documented By: CHACHA Non-Admin Reason: Patient Refused Rivaroxaban (Rivaroxaban 20 Mg Tablet) 20 mg PO DAILY@1700 [facility] Last Admin: 05/20/23 16:09 Dose: 20 mg Documented By: CHACHA Sodium Chloride (0.9 % Sodium Chloride Flush 3 Ml Syringe) 3 ml IVFLUSH QSHIFT [facility] Last Admin: 05/21/23 08:33 Dose: 3 ml Documented By: CHACHA Spironolactone (Spironolactone 25 Mg Tablet) 25 mg PO DAILY [facility]; Protocol Last Admin: 05/21/23 08:32 Dose: 25 mg Documented By: CHACHA Thiamine HCl (Thiamine Hcl 100 Mg Tablet) 100 mg PO DAILY [facility] Last Admin: 05/21/23 08:32 Dose: 100 mg Documented By: CHACHA Labs 05/18/23 05:26 05/19/23 06:06 Labs: Laboratory Results - last 24 hr 05/21/23 06:07 Total Bilirubin 1.7 H Direct Bilirubin 1.0 H AST 73 H ALT 25 Alkaline Phosphatase 166 H Total Protein 6.9 Albumin 3.0 L Assessment and Plan (1) Delirium: Status: Acute (2) Atrial fibrillation with rapid ventricular response: Status: Acute Plan 68M PMH persistent atrial fibrillation on Xarelto, bioprosthetic aortic valve, hld, etoh dependence, obesity, presented with left ankle pain after falls found to have left ankle fracture agitation likely dilirium initially thought to be related to etoh withdrawal, but may have been related to post -anesthesia started on phenobarbitol 05/17 and completed initial treatment, will stop taper seen by psych, rec prn haldol for any ongoing agitation mental status improving afib with rvr xarelto resumed dose of BB increased, HR better controlled will stop dig (did not tolerate well previously per family) cardiology following urinary retention will place gutierrez, 05/18. voiding trial today left ankle open fracture pod3 s/p iv ancef pain control NWB LLE dispo - patient would like to go home, but will likely need rehab, PT rec acute rehab - to be determined ILSA resolved ?due to nsaids vs poor perfusion from cardizem and right heart failure acute hypoxic respiratory failure and acute right heart failure diuresed vq scan negative possible due to history of left sided heart failure and more chronic, though not found on previous echos elevated lfts ?etoh and non etoh fatty liver CT showing likely fatty infiltration outpatient follow up obesity weight loss hld statin, fibrate AAA incidental finding ofsmall lower abdominal aortic aneurysm measureing 3.2cm recommend outpatient follow up every 3 years full code DVT ppx - xarelto reason for continued hospitalization: afib with RVR, delirium, monitor postop Time Spent With Patient Time: Total time managing care of this patient today ____ minutes. Quality Stroke Does the patient have a stroke diagnosis?: No VTE Prior VTE?: No VTE Risk Level:: Medical - moderate - high VTE Device Contraindication: N/A - Device Ordered VTE Drug Contraindication: Treatment Not Indicated
[2023-05-21] MEDS: Acetaminophen 325 MG TABLET 650 MG PO (13:59)
[2023-05-21] MEDS: Rivaroxaban 20 MG TABLET PO (16:12)
[2023-05-22] VITALS (9 sets, daily range): BP systolic 115–144; BP diastolic 61–89; PULSE 68–96; RESP 16–20; TEMP 36–36.9; O2SAT 93–97
[2023-05-22] MEDS: oxyCODONE HCl Immed Release 5 MG TABLET PO (02:54)
[2023-05-22] MEDS: 0.9 % Sodium Chloride Flush 3 ML SYRINGE IVFLUSH ×3 (07:35→20:53)
[2023-05-22] MEDS: polyethylene glycoL 3350 17 GM POWD.PACK PO (07:48)
[2023-05-22] MEDS: Spironolactone 25 MG TABLET PO (07:49)
[2023-05-22] MEDS: Atorvastatin Calcium 80 MG TABLET PO (07:49)
[2023-05-22] MEDS: Metoprolol Tartrate 50 MG TABLET PO ×3 (07:49→20:53)
[2023-05-22] MEDS: Docusate Sodium 100 MG CAPSULE PO (07:49)
[2023-05-22] MEDS: Escitalopram Oxalate 10 MG TABLET PO (07:49)
[2023-05-22] MEDS: Magnesium Oxide 400 MG TABLET PO ×2 (07:49→20:53)
[2023-05-22] MEDS: Folic Acid 1 MG TABLET PO (07:50)
[2023-05-22] MEDS: Thiamine HCL 100 MG TABLET PO (07:50)
[2023-05-22] MEDS: Fenofibrate 54 MG TABLET PO (07:50)
[2023-05-22] MEDS: Fluticasone/Vilanterol 100/25 BLST.W.DEV 1 PUFF INHALE (07:55)
--- NOTE | 2023-05-22 10:53 | P.DS_ITS ---
DS: Providers Provider Date of Service: 05/22/23 Date of admission: 05/12/23 15:44 Date of discharge: 05/22/23 Primary care physician: Bean Fallon MD Consults: 05/12/23 15:42 Consult to Orthopedics Routine Consulting Provider: [facility] Reason for consultation: Open left ankle fracture 05/12/23 16:29 Consult to Cardiology Routine Consulting Provider: [facility] Reason for consultation: Pre-surgery Xarelto management and risk stratification 05/13/23 10:57 Consult to Nephrology Routine Consulting Provider: Susan Trujillo Reason for consultation: lorelei 05/17/23 18:06 Consult for Sitter Routine Reason for consultation: ETOH withdraw Has provider been notified: No 05/19/23 10:23 Consult to Psychiatry Routine Consulting Provider: Psych Covering Reason for consultation: ?dilirium prn med recs Has provider been notified: No Attending physician on discharge: Kaylan Greene Discharging clinician: Kaylan Greene DS: Diagnosis Discharge Diagnosis (1) Delirium: Status: Acute (2) Atrial fibrillation with rapid ventricular response: Status: Acute DS: Summary Hospital Course Hospital Course: 68-year-old male with a PMH significant for?persistent AFib on Xarelto, bovine valve replacement, and HLD who presents to the ED for evaluation of open left ankle fracture. Pt reports last night he went into the kitchen to grab something off the top of the fridge, and when he reached up he felt lightheaded, dizzy, and then did the splits and fell to the floor. Immediately felt 10/10 left ankle pain. Denies LOC, headstrike, or confusion post-fall. Pt took off his sock and noticed a small laceration on the lateral aspect of his ankle and part of his bone protruding under the skin. Admits to having a couple of glasses of wine prior to fall, which he says he does 2-3 times per week. Pt first presented to [facility] where he reports waiting over twelve hours with almost no interaction with a provider. X-ray showed left ankle fracture, and CT of head and neck negative for acute pathology. Pt and family were so displeased with treatment they were discharged from [facility] and presented to ED here, where son serves as a [employer] medical claims representative. Pt reports similar episode of lightheadedness and dizziness with fall on Monday of this week, again after having a couple of glasses of wine. No trauma, injuries, headstrike, LOC from this fall. Did not seek medical attention on . Reports these are the only two such pre-syncopal episodes. Patient reports current 7/10 pain to left ankle, otherwise has no acute medical complaints. Denies chest pain/pressure, palpitations. No shortness of breath. Denies nausea, vomiting, diarrhea, abdominal pain. In the ED patient was afebrile with pulse of 98 and slightly hypertensive up to 164/76. Labs were significant for MCV of 106.5, platelets 117, bilirubin 1.4, AST 42. H&H stable at 15 0.1/44.4. Electrolytes WNL. Renal function baseline. Coags elevated at PT 18.7, INR 1.5, APTT 41.4. X-ray of left ankle showed displaced distal fibular fracture with more T-piece disruption. EKG showed atrial fibrillation with RVR [address] and T-wave abnormalities. Pt was treated with ondansetron, morphine, Zosyn and Dilaudid. Pt will be admitted to the hospital for treatment further of open fracture of left ankle with surgical procedure. Hospital course: Patient was admitted for left ankle fracture-ORIF done, subsequently patient was somewhat delirious possibly due to anesthesia -subsequently patient's mental status seems to be is improved to baseline with supportive care, patient will be going to the rehab today. AFib with RVR: continue metoprolol and heart rate seems to be improved, digoxin stopped due to not tolerated in the past. LORELEI resolved with hydration. Acute hypoxemic respiratory failure was thought to be secondary to underlying history of heart failure seems to be improved, p.r.n. Lasix added. CHF education given, monitor weight if increase in weight 2 lb or more in a week consider adjusting dose of Lasix outpatient. Mild elevation of LFTs improving, CT abdomen shows fatty infiltration, monitor LFT outpatient and further workup outpatient. Patient was also strongly encouraged and advised to lose weight. plan: Oxycodone for pain control, patient will be going to rehab. Follow-up with Ortho for ankle fracture Outpatient. chf -currently euvolemic, discussed with Cardiology: use 20 mg Lasix p.r.n.,CHF education given, monitor weight if increase in weight 2 lb or more in a week consider adjusting dose of Lasix outpatient. Monitor LFT outpatient and further workup as needed. Assessment and plan coordination time spent 50 minute. Time Spent with Patient Time attestation: Total time managing care of this patient today ____ minutes. Discharge coordination time: Greater than 30 minutes Quality: Safe Use of Opioids Does Pt have an Active Cancer Diagnosis on the Problem List?: No Quality: Stroke Does the patient have a stroke diagnosis?: No Physical Exam Vital Signs: Vital Signs: Last Vital Signs Temp 98.0 F 05/22/23 07:22 Pulse 96 05/22/23 10:30 Resp 16 05/22/23 07:58 BP 140/89 H 05/22/23 07:22 Pulse Ox 93 05/22/23 07:22 O2 Del Method Room Air 05/22/23 07:22 O2 Flow Rate 2 05/19/23 19:04 BMI result Body Mass Index 33.9 Appearance: Alert.? Oriented ,? anxious ? cvs: rrr, [id number]. res: clear to auscultation ,no rhonchii or wheezing abd: no rebound or guarding ,nt, bs present. ext pulses present , no cyanosis.Left Ankle splint . Able to move all digits. neuro: nonfocal. DS: Data Imaging Chest x-ray: Radiologist's impression: ITS Impressions Ankle X-Ray 05/12/23 12:16 IMPRESSION: Displaced distal fibular fracture with mortise disruption. Chest X-Ray 05/12/23 19:04 IMPRESSION: * Pulmonary vascular congestion without scot failure. * Left hemidiaphragm is partially obscured probably by underlying pleural effusion, infiltrate and/or atelectasis. Abdomen/Pelvis CT 05/13/23 11:31 IMPRESSION: Multiple fatty infiltration of the liver. Small gallstone. Bilateral renal perinephric fat stranding. Small lower abdominal aortic aneurysm measuring 3.2 cm. Recommend AAA follow-up every 3 years. Reference: J Am [facility]ana Radiol 2013; 10 (10): 789-794. Fleischner guidelines were followed. Renal Ultrasound 05/13/23 13:00 IMPRESSION: Unremarkable renal ultrasound. Pulmonary Perfusion Imaging 05/14/23 09:50 IMPRESSION: No evidence of perfusion defect to suspect any PE. Chest X-Ray 05/14/23 11:40 IMPRESSION: Mild diffuse prominence of the vasculature suggestive of mild pulmonary edema. Mild bibasilar streaky opacities may represent atelectasis and/or pneumonia, left greater than right. Guidance Fluoroscopy 05/16/23 14:15 IMPRESSION: Fluoroscopy provided for ORIF left ankle fracture. Discharge Plan Discharge Anticipated Discharge Date/Time: 05/22/23 10:39 Patient Disposition: Xfer SNF Discharge Diagnosis: left ankle fracture ,deilurm resolved. Referrals: [facility] [Other] - 3-5 Days Rita Donaldson PA-C [Physician Toaster Element Repairer] - 2 Weeks (06/01/23 12:30 [facility] Rita Donaldson PA-C) Bean Fallon MD [Primary Care Provider] - 1 Week Discharge Medications: New furosemide [Lasix] 20 mg tablet 20 mg PO DAILY PRN (Reason: edema) Qty: 10 0RF oxycodone 5 mg Tablet 5 mg PO Q6H PRN (Reason: Pain, Moderate(Pain Scale 4-6)) Qty: 10 0RF Rx Instructions: Partial Fill upon patient request. Continued magnesium glycinate 100 mg Tablet 500 mg PO DAILY magnesium oxide 400 mg magnesium Tablet 400 mg PO BID aspirin 81 mg Tablet,Delayed Release (Dr/Ec) 81 mg PO DAILY omeprazole 20 mg Capsule,Delayed Release(Dr/Ec) 20 mg PO Q2D@0630 omega 9-rsy-shl-fish oil [Fish Oil] 1,000 mg (120 mg-180 mg) Capsule 2 cap PO DAILY Xarelto 20 mg Tablet 20 mg PO DAILY@1700 Rx Instructions: must administer with evening meal rosuvastatin 20 mg Tablet 20 mg PO DAILY fluticasone furoate-vilanterol [Breo Ellipta] 100-25 mcg/dose Blister With Device 1 inh INHALATION DAILY citalopram 20 mg Tablet 20 mg PO DAILY metoprolol succinate 100 mg Tablet Extended Release 24 Hr 100 mg PO BID fenofibrate 54 mg Tablet 54 mg PO DAILY Discharge Orders: Discharge Order (Routine); Ordered 05/22/23 Ordered By: Kaylan Greene Diet: Advance to usual diet Activity on Discharge: As tolerated Stand Alone Forms: Patient Portal Discharge page Care Plan Goals: Patient was admitted for left ankle fracture-ORIF done, subsequently patient was somewhat delirious possibly due to anesthesia -subsequently patient's mental status seems to be is improved to baseline with supportive care, patient will be going to the rehab today. AFib with RVR: continue metoprolol and heart rate seems to be improved, digoxin stopped due to not tolerated in the past. LORELEI resolved with hydration. Acute hypoxemic respiratory failure was thought to be secondary to underlying history of heart failure seems to be improved, p.r.n. Lasix added. CHF education given, monitor weight if increase in weight 2 lb or more in a week consider adjusting dose of Lasix outpatient. Mild elevation of LFTs improving, CT abdomen shows fatty infiltration, monitor LFT outpatient and further workup outpatient. Patient was also strongly encouraged and advised to lose weight. Health Concerns: as above. Plan of Treatment: * NWB x 6 weeks operative leg * Keep splint clean, dry and intact * Elevate leg above the level of the heart on 3 pillows * Any questions or concerns please call the office RUDY * Follow up with Orthopedics in 2 weeks. Assessment: as above.
--- NOTE | 2023-05-22 11:03 | P.PNIM_ITS ---
Subjective Subjective Date of Service: 05/23/23 Interval History: seem better ,talking well Review of Systems mental status seems near baseline feeling well no new c/o. Physical Exam 2 Vital Signs: Vital Signs: Last Vital Signs Temp 98.0 F 05/22/23 07:22 Pulse 96 05/22/23 10:30 Resp 16 05/22/23 07:58 BP 140/89 H 05/22/23 07:22 Pulse Ox 93 05/22/23 07:22 O2 Del Method Room Air 05/22/23 07:22 O2 Flow Rate 2 05/19/23 19:04 BMI result Body Mass Index 33.9 Appearance: Alert.? Oriented ,? anxious ? cvs: rrr, [id number]. res: clear to auscultation ,no rhonchii or wheezing abd: no rebound or guarding ,nt, bs present. ext pulses present , no cyanosis. neuro: nonfocal. Objective Data Active Medications Acetaminophen (Acetaminophen 325 Mg Tablet) 650 mg PO Q6H PRN PRN Reason: Pain, Mild (Pain Scale 1-3) Last Admin: 05/21/23 13:59 Dose: 650 mg Documented By: SALONI Atorvastatin Calcium (Atorvastatin Calcium 80 Mg Tablet) 80 mg PO DAILY [facility] Last Admin: 05/22/23 07:49 Dose: 80 mg Documented By: CHLOE Docusate Sodium (Docusate Sodium 100 Mg Capsule) 100 mg PO DAILY [facility] Last Admin: 05/22/23 07:49 Dose: 100 mg Documented By: CHLOE Escitalopram Oxalate (Escitalopram Oxalate 10 Mg Tablet) 10 mg PO DAILY [facility] Last Admin: 05/22/23 07:49 Dose: 10 mg Documented By: CHLOE Fenofibrate (Fenofibrate 54 Mg Tablet) 54 mg PO DAILY [facility] Last Admin: 05/22/23 07:50 Dose: 54 mg Documented By: CHLOE Fluticasone/Vilanterol (Fluticasone/Vilanterol 100/25 Blst.W.Dev) 1 puff INHALE RDAILY [facility] Last Admin: 05/22/23 07:55 Dose: 1 puff Documented By: CROW Folic Acid (Folic Acid 1 Mg Tablet) 1 mg PO DAILY [facility] Last Admin: 05/22/23 07:50 Dose: 1 mg Documented By: CHLOE Hydromorphone HCl (Hydromorphone Hcl 1 Mg/Ml Syringe) 0.5 mg IVPUSH Q3H PRN; Protocol PRN Reason: Pain, Severe (Pain Scale 7-10) Last Admin: 05/21/23 05:48 Dose: 0.5 mg Documented By: TAMMI Magnesium Oxide (Magnesium Oxide 400 Mg Tablet) 400 mg PO BID [facility] Last Admin: 05/22/23 07:49 Dose: 400 mg Documented By: CHLOE Metoprolol Tartrate (Metoprolol Tartrate 50 Mg Tablet) 50 mg PO TID [facility]; Protocol Last Admin: 05/22/23 07:49 Dose: 50 mg Documented By: CHLOE Ondansetron HCl (Ondansetron Hcl 4 Mg/2 Ml Vial) 4 mg IVPUSH Q8H PRN PRN Reason: Nausea and Vomiting Oxycodone HCl (Oxycodone Hcl Immed Release 5 Mg Tablet) 5 mg PO Q6H PRN PRN Reason: Pain, Moderate(Pain Scale 4-6) Last Admin: 05/22/23 02:54 Dose: 5 mg Documented By: LINCOLN Pharmacy Consult (Consult Rx Etoh Phenob Im/Po) 1 each MISCELLANE ONCE PRN; Protocol PRN Reason: Consult order Polyethylene Glycol (Polyethylene Glycol 3350 17 Gm Powd.Pack) 17 gm PO DAILY [facility] Last Admin: 05/22/23 07:48 Dose: 17 gm Documented By: CHLOE Rivaroxaban (Rivaroxaban 20 Mg Tablet) 20 mg PO DAILY@1700 [facility] Last Admin: 05/21/23 16:12 Dose: 20 mg Documented By: CHACHA Sodium Chloride (0.9 % Sodium Chloride Flush 3 Ml Syringe) 3 ml IVFLUSH QSHIFT [facility] Last Admin: 05/22/23 07:35 Dose: 3 ml Documented By: CHLOE Spironolactone (Spironolactone 25 Mg Tablet) 25 mg PO DAILY [facility]; Protocol Last Admin: 05/22/23 07:49 Dose: 25 mg Documented By: CHLOE Thiamine HCl (Thiamine Hcl 100 Mg Tablet) 100 mg PO DAILY [facility] Last Admin: 05/22/23 07:50 Dose: 100 mg Documented By: CHLOE Labs 05/18/23 05:26 05/19/23 06:06 Assessment and Plan (1) Delirium: Status: Acute (2) Atrial fibrillation with rapid ventricular response: Status: Acute Plan 68M PMH persistent atrial fibrillation on Xarelto, bioprosthetic aortic valve, hld, etoh dependence, obesity, presented with left ankle pain after falls found to have left ankle fracture agitation/likely dilirium initially thought to be related to etoh withdrawal, but may have been related to post -anesthesia : improved ,mental status seems at baseline. received phenobarbitol . seen by psych, rec prn haldol for any ongoing agitation mental status improved. afib with rvr xarelto resumed dose of BB increased, HR better controlled will stop dig (did not tolerate well previously per family) cardiology following urinary retention intially has gutierrez gutierrez taken out urinating well. left ankle open fracture pod3 s/p iv ancef pain control NWB LLE dispo - patient would like to go home, but will likely need rehab, PT rec acute rehab - to be determined ILSA resolved avoid nsaids vs poor perfusion from cardizem and right heart failure acute hypoxic respiratory failure and acute right heart failure diuresed vq scan negative possible due to history of left sided heart failure and more chronic, though not found on previous echos elevated lfts ?etoh and non etoh fatty liver CT showing likely fatty infiltration outpatient follow up obesity weight loss hld statin, fibrate AAA incidental finding ofsmall lower abdominal aortic aneurysm measureing 3.2cm recommend outpatient follow up every 3 years full code DVT ppx - xarelto reason for continued hospitalization: awaiting placement. Time Spent With Patient Time: Total time managing care of this patient today ____ minutes. Quality Stroke Does the patient have a stroke diagnosis?: No VTE Prior VTE?: No VTE Risk Level:: Medical - moderate - high VTE Device Contraindication: N/A - Device Ordered VTE Drug Contraindication: Treatment Not Indicated
--- NOTE | 2023-05-22 13:07 | MHC.CM.PN ---
PT HAS ACCEPTED BED OFFER FOR ACUTE REHAB FROM [facility] PENDING INSURANCE AUTH FROM [employer]. CM WILL AWAIT APPROVAL FROM [employer].
[2023-05-22] MEDS: Rivaroxaban 20 MG TABLET PO (16:09)
--- NOTE | 2023-05-22 19:02 | PC.NURSE ---
remote tele discontinued as per Dr Greene during morning rounds
[2023-05-22] MEDS: Acetaminophen 325 MG TABLET 650 MG PO (19:52)
[2023-05-23] MEDS: Melatonin 3 MG TABLET 6 MG PO (01:06)
[2023-05-23 03:26] VITALS: BP 128/78; PULSE 76; RESP 18; TEMP 36.1; O2SAT 97
[2023-05-23 07:42] VITALS: BP 131/74; PULSE 79; RESP 20; TEMP 36.6; O2SAT 93
[2023-05-23] MEDS: Fluticasone/Vilanterol 100/25 BLST.W.DEV 1 PUFF INHALE (08:03)
[2023-05-23 08:04] VITALS: PULSE 79; RESP 20; O2SAT 95
[2023-05-23] MEDS: Metoprolol Tartrate 50 MG TABLET PO ×3 (08:24→16:52)
[2023-05-23] MEDS: Docusate Sodium 100 MG CAPSULE PO (08:24)
[2023-05-23] MEDS: Spironolactone 25 MG TABLET PO (08:25)
[2023-05-23] MEDS: Escitalopram Oxalate 10 MG TABLET PO (08:25)
[2023-05-23] MEDS: Fenofibrate 54 MG TABLET PO (08:25)
[2023-05-23] MEDS: Magnesium Oxide 400 MG TABLET PO (08:25)
[2023-05-23] MEDS: Atorvastatin Calcium 80 MG TABLET PO (08:25)
[2023-05-23] MEDS: Folic Acid 1 MG TABLET PO (08:25)
[2023-05-23] MEDS: Thiamine HCL 100 MG TABLET PO (08:25)
[2023-05-23] MEDS: 0.9 % Sodium Chloride Flush 3 ML SYRINGE IVFLUSH (08:26)
--- NOTE | 2023-05-23 10:01 | PM.PNORT ---
Subjective Subjective Date of Service: 05/23/23 Principal diagnosis: left ankle fracture with ARF and CHF Interval history: POD 7 s/p Left ankle ORIF Patient is resting in bed comfortably No overnight events Pain is managed No additional complaints Physical Exam Vital Signs: Vital Signs: Last Vital Signs Temp 97.9 F 05/23/23 07:42 Pulse 79 05/23/23 08:04 Resp 20 05/23/23 08:04 BP 131/74 05/23/23 07:42 Pulse Ox 93 05/23/23 07:42 O2 Del Method Room Air 05/23/23 07:42 O2 Flow Rate 2 05/19/23 19:04 BMI result Body Mass Index 33.9 Const: General: cooperative, healthy appearing and no acute distress Resp: Effort & Inspection: normal respiratory effort and able to speak in complete sentences Cardio: Rate: regular rate Peripheral pulses: Peripheral pulses 2+ throughout GI: Palpation (GI): Soft to palpation Skin: Lesions: no lesions Rashes: no rashes Extrem: Other: Left Ankle splint is c/d/i. Able to move all digits. Sensation intact. capillary refill is brisk. Procedures Date of Service Date of Service: 05/23/23 Progress Note: A&P Assessment and plan (1) Ankle fracture, left: Status: Acute Assessment and Plan: Continue pain mgmnt PT for left ankle ORIF - NWB Dispo planning-cleared from ortho standpoint-f/u in 2 weeks (2) Acute right heart failure: Status: Acute (3) Persistent atrial fibrillation: Status: Acute (4) Congestive heart failure: Status: Acute Time Spent With Patient Time: Total time managing care of this patient today ____ minutes. Quality Stroke Does the patient have a stroke diagnosis?: No VTE Prior VTE?: No VTE Risk Level:: Medical - moderate - high VTE Device Contraindication: N/A - Device Ordered VTE Drug Contraindication: Treatment Not Indicated
[2023-05-23 11:26] VITALS: BP 144/79; PULSE 84; RESP 16; TEMP 36.2; O2SAT 96
--- NOTE | 2023-05-23 11:31 | HO.PM.IMPN ---
Subjective Subjective Date of Service: 05/23/23 Interval History: left ankle open fracture Review of Systems seemsimproved no new c/o Physical Exam Vital Signs: Vital Signs: Last Vital Signs Temp 97.9 F 05/23/23 07:42 Pulse 79 05/23/23 08:04 Resp 20 05/23/23 08:04 BP 131/74 05/23/23 07:42 Pulse Ox 93 05/23/23 07:42 O2 Del Method Room Air 05/23/23 07:42 O2 Flow Rate 2 05/19/23 19:04 BMI result Body Mass Index 33.9 Appearance: Alert.? Oriented ,? anxious ? cvs: rrr, [id number]. res: clear to auscultation ,no rhonchii or wheezing abd: no rebound or guarding ,nt, bs present. ext pulses present , no cyanosis. neuro: nonfocal Objective Data Active Medications Acetaminophen (Acetaminophen 325 Mg Tablet) 650 mg PO Q6H PRN PRN Reason: Pain, Mild (Pain Scale 1-3) Last Admin: 05/22/23 19:52 Dose: 650 mg Documented By: LINCOLN Atorvastatin Calcium (Atorvastatin Calcium 80 Mg Tablet) 80 mg PO DAILY [facility] Last Admin: 05/23/23 08:25 Dose: 80 mg Documented By: LACIE Docusate Sodium (Docusate Sodium 100 Mg Capsule) 100 mg PO DAILY [facility] Last Admin: 05/23/23 08:24 Dose: 100 mg Documented By: LACIE Escitalopram Oxalate (Escitalopram Oxalate 10 Mg Tablet) 10 mg PO DAILY [facility] Last Admin: 05/23/23 08:25 Dose: 10 mg Documented By: LACIE Fenofibrate (Fenofibrate 54 Mg Tablet) 54 mg PO DAILY [facility] Last Admin: 05/23/23 08:25 Dose: 54 mg Documented By: LACIE Fluticasone/Vilanterol (Fluticasone/Vilanterol 100/25 Blst.W.Dev) 1 puff INHALE RDAILY [facility] Last Admin: 05/23/23 08:03 Dose: 1 puff Documented By: NESSA Folic Acid (Folic Acid 1 Mg Tablet) 1 mg PO DAILY [facility] Last Admin: 05/23/23 08:25 Dose: 1 mg Documented By: LACIE Hydromorphone HCl (Hydromorphone Hcl 1 Mg/Ml Syringe) 0.5 mg IVPUSH Q3H PRN; Protocol PRN Reason: Pain, Severe (Pain Scale 7-10) Last Admin: 05/21/23 05:48 Dose: 0.5 mg Documented By: TAMMI Magnesium Oxide (Magnesium Oxide 400 Mg Tablet) 400 mg PO BID [facility] Last Admin: 05/23/23 08:25 Dose: 400 mg Documented By: LACIE Melatonin (Melatonin 3 Mg Tablet) 6 mg PO BEDTIME PRN PRN Reason: Insomnia Last Admin: 05/23/23 01:06 Dose: 6 mg Documented By: LINCOLN Metoprolol Tartrate (Metoprolol Tartrate 50 Mg Tablet) 50 mg PO QID [facility]; Protocol Last Admin: 05/23/23 08:24 Dose: 50 mg Documented By: LACIE Ondansetron HCl (Ondansetron Hcl 4 Mg/2 Ml Vial) 4 mg IVPUSH Q8H PRN PRN Reason: Nausea and Vomiting Oxycodone HCl (Oxycodone Hcl Immed Release 5 Mg Tablet) 5 mg PO Q6H PRN PRN Reason: Pain, Moderate(Pain Scale 4-6) Last Admin: 05/22/23 02:54 Dose: 5 mg Documented By: LINCOLN Pharmacy Consult (Consult Rx Etoh Phenob Im/Po) 1 each MISCELLANE ONCE PRN; Protocol PRN Reason: Consult order Polyethylene Glycol (Polyethylene Glycol 3350 17 Gm Powd.Pack) 17 gm PO DAILY [facility] Last Admin: 05/23/23 08:29 Dose: Not Given Documented By: LACIE Non-Admin Reason: Patient Refused Rivaroxaban (Rivaroxaban 20 Mg Tablet) 20 mg PO DAILY@1700 [facility] Last Admin: 05/22/23 16:09 Dose: 20 mg Documented By: CHLOE Sodium Chloride (0.9 % Sodium Chloride Flush 3 Ml Syringe) 3 ml IVFLUSH QSHIFT [facility] Last Admin: 05/23/23 08:26 Dose: 3 ml Documented By: LACIE Spironolactone (Spironolactone 25 Mg Tablet) 25 mg PO DAILY [facility]; Protocol Last Admin: 05/23/23 08:25 Dose: 25 mg Documented By: LACIE Thiamine HCl (Thiamine Hcl 100 Mg Tablet) 100 mg PO DAILY [facility] Last Admin: 05/23/23 08:25 Dose: 100 mg Documented By: LACIE Labs 05/18/23 05:26 05/19/23 06:06 Assessment and Plan (1) Ankle fracture, left: Status: Acute (2) Alcohol withdrawal delirium: Status: Acute Plan 68M PMH persistent atrial fibrillation on Xarelto, bioprosthetic aortic valve, hld, etoh dependence, obesity, presented with left ankle pain after falls found to have left ankle fracture agitation/likely dilirium initially thought to be related to etoh withdrawal, but may have been related to post -anesthesia : improved ,mental status seems at baseline. received phenobarbitol . seen by psych, rec prn haldol for any ongoing agitation mental status improved. afib with rvr xarelto resumed dose of BB increased, HR better controlled will stop dig (did not tolerate well previously per family) cardiology following urinary retention intially has gutierrez gutierrez taken out urinating well. left ankle open fracture pod3 s/p iv ancef pain control NWB LLE dispo - patient would like to go home, but will likely need rehab, PT rec acute rehab - to be determined ILSA resolved avoid nsaids vs poor perfusion from cardizem and right heart failure acute hypoxic respiratory failure and acute right heart failure diuresed vq scan negative possible due to history of left sided heart failure and more chronic, though not found on previous echos elevated lfts ?etoh and non etoh fatty liver CT showing likely fatty infiltration outpatient follow up obesity weight loss hld statin, fibrate AAA incidental finding ofsmall lower abdominal aortic aneurysm measureing 3.2cm recommend outpatient follow up every 3 years full code DVT ppx - xarelto reason for continued hospitalization: awaiting placement. Time Spent With Patient Time: Total time managing care of this patient today ____ minutes. Quality Stroke Does the patient have a stroke diagnosis?: No VTE Prior VTE?: No VTE Risk Level:: Medical - moderate - high VTE Device Contraindication: N/A - Device Ordered VTE Drug Contraindication: Treatment Not Indicated
--- NOTE | 2023-05-23 14:46 | MHC.CM.PN ---
DP: PT HAS BEEN MEDICALLY CLEARED FOR DC TO ACUTE REHAB AT [facility]. [facility] HAS OBTAINED INSURANCE AUTH. NOTIFIED. RN AWARE. S TRANSPORT BOOKED FOR 5PM VIA [facility].
[2023-05-23 14:53] VITALS: BP 144/79; PULSE 84; O2SAT 96
[2023-05-23 15:22] VITALS: BP 144/82; PULSE 97; RESP 18; TEMP 36.6; O2SAT 95
[2023-05-23] MEDS: Rivaroxaban 20 MG TABLET PO (16:52)
--- NOTE | 2023-08-01 07:40 | P.OP_ITS ---
Operative Note Operative Note Date of Service: 05/16/23 Narrative: Date of Service: 05/16/23 Pre-op diagnosis: left lateral malleolus fracture Post-op diagnosis: same Procedure: ORIF left lateral mal Implants: [place] Surgeon: Kyler Oliva MD Anesthesia: GETA and regional Was an Office Messenger Helper used for this Procedure?: Yes Office Messenger Helper: Rita Donaldson Estimated blood loss (mL): 25 Tourniquet time (min): 30 IV fluids (mL): 700 Pathology: none sent Condition: stable Disposition: PACU Procedure in detail: Patient was brought to the operating room and placed supine on the operative table. All bony prominences were well padded and a time-out was called to identify proper site proper procedure proper surgeon. IV antibiotics per weight were administered. I began by exsanguinating limb is slightly tourniquet to 300 mm Hg. I then made a standard posterolateral incision over the fibula. Full- thickness flaps were taken down to the fibular shaft and distal fibula. The fracture was identified and cleaned with a combination of curette, rongeur and irrigation. A lobster claw was used to provisionally reduce the fracture and a 6 hole distal fibular locking plate was applied using standard AO technique. Biplanar fluoroscopy was used to confirm hardware position and fracture redu ction. Once I was satisfied that both of these were acceptable I irrigated copiously and turned my attention to the syndesmosis was tested using external rotation test and was found to be stable. Therefore all instrumentation was removed and copious irrigation was performed. Absorbable suture and melida were used for closure and the patient was placed into sterile dressings and a well-padded posterior splint. Tourniquet was let down and the patient was extubated brought to recovery room in stable condition there were no known complications.
== END 2023-05-23 17:39 | disposition skilled nursing facility (03) | DRG 313 ==
LOC: HO.ED 15:14 → HO.EDOVER 15:45 → HO.S3 17:01
PROVIDERS: Internal Medicine; Internal Medicine Nephrology; Orthopaedic Surgery; Physician Assistant Medical; Admitting Provider Student in an Organized Health Care Education/Training Program; Emergency Provider Student in an Organized Health Care Education/Training Program; PCP Internal Medicine; Visit Provider Internal Medicine
DX: S82.432B Displaced oblique fracture of shaft of left fibula, initial encounter for open fracture type I or II (principal); J96.01 Acute respiratory failure with hypoxia; N17.9 Acute kidney failure, unspecified; I48.19 Other persistent atrial fibrillation; K70.0 Alcoholic fatty liver; F05 Delirium due to known physiological condition; I50.811 Acute right heart failure; E66.9 Obesity, unspecified; E78.5 Hyperlipidemia, unspecified; D75.89 Other specified diseases of blood and blood-forming organs; K70.10 Alcoholic hepatitis without ascites; G89.18 Other acute postprocedural pain; Z95.2 Presence of prosthetic heart valve; F10.239 Alcohol dependence with withdrawal, unspecified; I71.40 Abdominal aortic aneurysm, without rupture, unspecified; R33.9 Retention of urine, unspecified; Z87.891 Personal history of nicotine dependence; W19.XXXA Unspecified fall, initial encounter; Z68.33 Body mass index [BMI] 33.0-33.9, adult; Z79.01 Long term (current) use of anticoagulants; Z79.82 Long term (current) use of aspirin; Z79.51 Long term (current) use of inhaled steroids; Z79.899 Other long term (current) drug therapy
CPT/HCPCS: 36415; 71045; 73610; 74176; 76775; 78580; 80048; 80051; 80053; 80076; 81001; 82550; 82565; 82570; 82947; 83735; 83880; 84156; 84300; 84443; 84520; 85025; 85027; 85610; 85730; 87040; 93005; 93306; 94640; 94660; 97110; 97116; 97162; 97165; 97530; 97535; 99285; A9540; C1713; C1758; J0690; J1170; J1650; J1940; J2060; J2270; J2359; J2405; J2543; J2560; J2795; Q9957

== ENCOUNTER 2023-05-12 15:44 | Outpatient (BNV) | payer BC, SELFPAY | END 2023-05-13 07:00 | PROVIDERS: Admitting Provider Student in an Organized Health Care Education/Training Program; Emergency Provider Student in an Organized Health Care Education/Training Program; PCP Internal Medicine; Visit Provider Internal Medicine Cardiovascular Disease | DX: I36.1 Nonrheumatic tricuspid (valve) insufficiency (principal); I34.0 Nonrheumatic mitral (valve) insufficiency | CPT/HCPCS: 93306 ==

== ENCOUNTER → 2023-05-12 15:44 | Outpatient (BNV) | payer BC, SELFPAY | PROVIDERS: Admitting Provider Student in an Organized Health Care Education/Training Program; Emergency Provider Student in an Organized Health Care Education/Training Program; PCP Internal Medicine; Visit Provider Orthopaedic Surgery | DX: S82.892A Other fracture of left lower leg, initial encounter for closed fracture (principal); I48.19 Other persistent atrial fibrillation; I50.9 Heart failure, unspecified | CPT/HCPCS: 27792; 99024; 99232 ==

== ENCOUNTER → 2023-05-12 15:44 | Outpatient (BNV) | payer BC, SELFPAY | PROVIDERS: Admitting Provider Student in an Organized Health Care Education/Training Program; Emergency Provider Student in an Organized Health Care Education/Training Program; PCP Internal Medicine; Visit Provider Student in an Organized Health Care Education/Training Program | DX: R41.0 Disorientation, unspecified (principal); I48.91 Unspecified atrial fibrillation | CPT/HCPCS: 99223; 99231; 99232; 99233; 99239; 99499 ==

== ENCOUNTER → 2023-05-12 15:44 | Outpatient (BNV) | payer BC, SELFPAY | PROVIDERS: Admitting Provider Student in an Organized Health Care Education/Training Program; Emergency Provider Student in an Organized Health Care Education/Training Program; PCP Internal Medicine; Visit Provider Social Worker | DX: R41.0 Disorientation, unspecified (principal) | CPT/HCPCS: 99232 ==

== ENCOUNTER → 2023-05-12 15:44 | Outpatient (BNV) | payer BC, SELFPAY | PROVIDERS: Admitting Provider Student in an Organized Health Care Education/Training Program; Emergency Provider Student in an Organized Health Care Education/Training Program; PCP Internal Medicine; Visit Provider Internal Medicine Cardiovascular Disease | DX: I48.91 Unspecified atrial fibrillation (principal); I36.1 Nonrheumatic tricuspid (valve) insufficiency; F10.931 Alcohol use, unspecified with withdrawal delirium | CPT/HCPCS: 99223; 99233 ==

== ENCOUNTER 2023-06-01 06:08 | Outpatient (REF) | payer BC, SELFPAY ==
--- NOTE | ~2023-06-01 | XR_ITS ---
EXAMINATION: XR ANKLE, LEFT CLINICAL INFORMATION: Pain in left ankle and joints of left foot COMPARISON: 05/16/2023 for guidance in OR images 05/12/2023 x-ray left ankle outside images. Fracture on some views. TECHNIQUE: AP, lateral, and mortise views of the left ankle. FINDINGS: Redemonstration of ORIF with lateral plate and screws overlying previously demonstrated mildly displaced fracture of distal fibula. Hardware appears intact. Diffuse soft tissue swelling. Ankle joint effusion. Vascular calcifications. XR/XR ankle LT min 3V IMPRESSION: Redemonstration of ORIF with lateral plate and screws overlying previously demonstrated mildly displaced fracture of distal fibula. Hardware appears intact.
== END 2023-06-01 06:09 | disposition home or self-care (01) ==
LOC: HO.HOSX 06:08
PROVIDERS: Visit Provider Physician Assistant
DX: S82.892D Other fracture of left lower leg, subsequent encounter for closed fracture with routine healing (principal)
CPT/HCPCS: 73610

== ENCOUNTER 2023-06-01 12:25 | Outpatient (AMB) | payer BC, SELFPAY ==
--- NOTE | 2023-06-01 12:30 | A.OFFVIS_ITS ---
Intake Intake Visit Reasons: ORIF left ankle 05/16/23 NE Intake Note: Joseph brooks 68 year old male presents today for a post operative left ankle ORIF, DOS 05/16/23 NE. Xrays updated. Patient reports having pain when he is not elevating his foot. He has concerns of foot turning purple and swelling. Allergies diltiazem Adverse Reaction (Intermediate, Verified 06/01/23 12:44) acute kidney injury HPI ORIF left ankle 05/16/23 NE HPI Details 68-year-old male who returns to the [facility] today for post-op left ankle ORIF, 05/16/[address] Oliva. He continues to have pain in his ankle when he is not elevating his foot. He also c/o ecchymosis and swelling in his ankle. He is doing well otherwise and has no concerns today. [facility] Medical History (Updated 05/31/23 @ 00:03 by Maximo Zavaleta) Afib Sleep apnea Surgical History Status post aortic valve replacement Social History Household Members: Spouse Housing: House Do you presently have visiting nurse or other home services: No Patient Tobacco Use Status: Former Tobacco user Quit Date: 05/02-05/05 service: No Review of Systems Const All systems reviewed & are unremarkable except as noted in HPI and below Physical Exam Extrem Other: Left ankle: Normal to inspection. Incision clean, dry and intact. He has mild swelling but there is no drainage. Calf supple, nontender. NVI. Results Reviewed Results Reviewed: Xrays were obtained in the office today and personally reviewed by me of the [facility] ankle show Assessment & Plan Assessment & Plan (1) Ankle fracture, left: Code(s): S82.892A - Other fracture of left lower leg, initial encounter for closed fracture Plan [place] removed today, steri strips applied. He was transitioned to a short leg cast non weight bearing. He will see us back in 4 weeks cast of new x-rays, at that time our goal would be to transition him to a tall walking boot. Orders: Orders XR ankle LT min 3V Today M25.572 - Pain in left ankle and joints of left foot Patient Instructions: Scribed for Ta-Farnaz Meuse, PA-C, by Mathieu De La Garza, medical investigator, on 06/01/2023 at 12:30 PM TREVER. Rita Godinez PA-C, have personally reviewed and agree with the information entered by the scribe. Coding Level of Care Code Global (99435) Diagnoses Ankle fracture, left S82.892A
== END 2023-06-01 13:49 | disposition home or self-care (01) ==
PROVIDERS: PCP Internal Medicine; Visit Provider Physician Assistant
DX: S82.892A Other fracture of left lower leg, initial encounter for closed fracture (principal)
CPT/HCPCS: 99024

== ENCOUNTER 2023-06-29 12:40 | Outpatient (REF) | payer BC, SELFPAY ==
--- NOTE | ~2023-06-29 | XR_ITS ---
EXAMINATION: XR ANKLE, LEFT CLINICAL INFORMATION: Pain. COMPARISON: Radiographs dated 06/01/2023. TECHNIQUE: AP, lateral, and mortise views of the left ankle. FINDINGS: Bony alignment and mineralization are normal. The ankle mortise is intact. There is a healing oblique fracture of the distal left fibula, with persistent faint fracture lines. An intact orthopedic plate and fixator screws are applied to the distal left humerus, without hardware failure or loosening. No left ankle joint effusion is seen. Boehler's angle is normal. There are atherosclerotic calcifications. No focal soft tissue swelling, gas or foreign body is seen. XR/XR ankle LT min 3V IMPRESSION: There is stable, good alignment of distal left fibular fracture fragments status-post ORIF. No hardware failure or loosening is seen.
== END 2023-06-29 12:41 | disposition home or self-care (01) ==
LOC: HO.HOSX 12:40
PROVIDERS: PCP Internal Medicine; Visit Provider Orthopaedic Surgery
DX: S82.892D Other fracture of left lower leg, subsequent encounter for closed fracture with routine healing (principal)
CPT/HCPCS: 73610

== ENCOUNTER 2023-06-29 12:40 | Outpatient (AMB) | payer BC, SELFPAY ==
--- NOTE | 2023-06-29 13:07 | A.OFFVIS_ITS ---
Intake Intake Visit Reasons: PO-ORIF left ankle 05/16/23 cast off w xrays Intake Note: Joseph a 68 year old male presents today for a post operative left ankle ORIF, DOS 05/16/23 NE. Patient reports he is doing well. Allergies diltiazem Adverse Reaction (Intermediate, Verified 06/29/23 13:07) acute kidney injury HPI PO-ORIF left ankle 05/16/23 cast off w xrays HPI Details Joseph is a 68 year old man who presents ~6 weeks S/P left ankle ORIF. He says he is doing well overall and his pain has improved. He has been wearing a short leg cast and has been NWB. [facility] Medical History (Updated 05/31/23 @ 00:03 by Maximo Zavaleta) Afib Sleep apnea Surgical History Status post aortic valve replacement Social History Household Members: Spouse Housing: House Do you presently have visiting nurse or other home services: No Comment: lorena Patient Tobacco Use Status: Former Tobacco user Quit Date: 05/02-05/05 service: No Review of Systems Const All systems reviewed & are unremarkable except as noted in HPI and below Physical Exam Const General: no acute distress, alert and awake Orientation/consciousness: patient oriented x3 HEENT Head: Yes normocephalic and Yes atraumatic Eyes EOM: EOMs intact bilaterally Resp Effort & Inspection: normal respiratory effort and able to speak in complete sentences Cardio Jugular venous distension: no JVD Skin General skin exam: turgor normal Rashes: no rashes Neuro General: patient oriented x3 Extrem Other: Left Ankle: incisions c/d/i silt mild sts Psych Appearance: grossly normal Affect: normal affect Attitude: cooperative Results Reviewed Results Reviewed: I personally reviewed relevant radiographs stable lateral malleolus fracture with butress plate fixation. No hardware complications. Assessment & Plan Assessment & Plan (1) Ankle fracture, left: Code(s): S82.892A - Other fracture of left lower leg, initial encounter for closed fracture Plan: This is a 68 year old man S/P left ankle ORIF, DOS: 05/16/23 Boot Progress to wbat f/u 6 weeks PT Orders: Orders XR ankle LT min 3V 11/30/23 M25.579 - Pain in unspecified ankle and joints of unspecified foot PT Evaluation and Treatment Today S82.892A - Other fracture of left lower leg, initial encounter for closed fracture Coding Level of Care Code Global (10269) Diagnoses Ankle fracture, left S82.892A
== END 2023-06-29 14:00 | disposition home or self-care (01) ==
PROVIDERS: PCP Internal Medicine; Visit Provider Orthopaedic Surgery
DX: S82.892A Other fracture of left lower leg, initial encounter for closed fracture (principal)
CPT/HCPCS: 99024

== ENCOUNTER 2023-08-10 07:35 | Outpatient (REF) | payer BC, SELFPAY ==
--- NOTE | ~2023-08-10 | XR_ITS ---
EXAMINATION: XR ANKLE, LEFT CLINICAL INFORMATION: Reason for Exam M25.579 - Pain in unspecified ankle and joints of unspecified foot COMPARISON: Ankle radiographs 06/29/2023 TECHNIQUE: AP, lateral, and oblique views of the ankle FINDINGS: Status post ORIF of the distal fibular diaphysis. No evidence of hardware fracture or complication. Again seen are healing fractures of the distal fibular diaphysis and medial malleolus with persistent lucency of the fracture margins. Mild osteoarthritis of the tibiotalar joint and dorsal midfoot with small osteophytes. Atherosclerotic vascular calcification. Large tibiotalar joint effusion new from prior. Soft tissue swelling about the ankle. XR/XR ankle LT min 3V IMPRESSION: 1. Status post ORIF of the distal fibular diaphysis. No evidence of hardware fracture or complication. Again seen are healing fractures of the distal fibular diaphysis and medial malleolus with persistent lucency of the fracture margins. 2. Soft tissue swelling about the ankle and tibiotalar joint effusion new from prior.
== END 2023-08-10 07:36 | disposition home or self-care (01) ==
LOC: HO.HOSX 07:35
PROVIDERS: Visit Provider Orthopaedic Surgery
DX: S82.892D Other fracture of left lower leg, subsequent encounter for closed fracture with routine healing (principal); X58.XXXD Exposure to other specified factors, subsequent encounter; Z98.890 Other specified postprocedural states
CPT/HCPCS: 73610

== ENCOUNTER 2023-08-10 09:22 | Outpatient (AMB) | payer BC, SELFPAY ==
--- NOTE | 2023-08-10 09:30 | A.OFFVIS_ITS ---
Intake Intake Visit Reasons: PO-ORIF left ankle 05/16/23 cast off w xrays Intake Note: Joseph is a 68 year old male who presents today for a post operative appointment s/p Left Ankle ORIF 05/16/23. Patient rpeorts that he is doing well, he has no concerns. He has been wearing his boot until todays visit in hopes that he will be able to discontinue. Allergies diltiazem Adverse Reaction (Intermediate, Verified 06/29/23 13:07) acute kidney injury HPI PO-ORIF left ankle 05/16/23 cast off w xrays HPI Details Joseph is a 68 year old man who presents ~11 weeks S/P left ankle ORIF He says he is doing well and denies any pain. He is seen today in his walking boot and wants to know when he can d/c this. He has no other complaints today. [facility] Medical History (Updated 05/31/23 @ 00:03 by Maximo Zavaleta) Afib Sleep apnea Surgical History Status post aortic valve replacement Social History Household Members: Spouse Housing: House Do you presently have visiting nurse or other home services: No Comment: lorena Patient Tobacco Use Status: Former Tobacco user Quit Date: 05/02-05/05 service: No Review of Systems Const All systems reviewed & are unremarkable except as noted in HPI and below Physical Exam Const General: no acute distress, alert and awake Orientation/consciousness: patient oriented x3 HEENT Head: Yes normocephalic and Yes atraumatic Eyes EOM: EOMs intact bilaterally Resp Effort & Inspection: normal respiratory effort and able to speak in complete sentences Cardio Jugular venous distension: no JVD Skin General skin exam: turgor normal Rashes: no rashes Neuro General: patient oriented x3 Extrem Other: Lateral incision clean dry and intact 0-20 degrees motion Medial skin intact with a healing traumatic wound Psych Appearance: grossly normal Affect: normal affect Attitude: cooperative Results Reviewed Results Reviewed: I personally reviewed relevant radiographs. Healing fibula fracture No hardware complications Assessment & Plan Assessment & Plan (1) Ankle fracture, left: Code(s): S82.892A - Other fracture of left lower leg, initial encounter for closed fracture Plan: Doing well This was a open fracture which was treated with surgery that was delayed because of medical concerns so he does need to still be cautious of the healing medial wound. There is no hardware medially and he can follow up as needed unless there is any concerns for changes in his skin or worsening pain. Plan Scribed for Kyler Oliva MD by Compa Montgomery, medical geneticist, on 08/10/23 at 9:35 AM, EST. Orders: Orders XR ankle LT min 3V Today M25.579 - Pain in unspecified ankle and joints of u nspecified foot Coding Level of Care Code Global (72820) Diagnoses Ankle fracture, left S82.892A
== END 2023-08-10 10:13 | disposition home or self-care (01) ==
PROVIDERS: PCP Internal Medicine; Visit Provider Orthopaedic Surgery
DX: S82.892A Other fracture of left lower leg, initial encounter for closed fracture (principal)
CPT/HCPCS: 99024